=== PATIENT | female | born 1940 | race Caucasian/White ===

== ENCOUNTER 2016-11-01 12:23 | Emergency (ER) | payer MEDICARE ==
[~2016-11-01] VITALS: Ht 167.6 cm; Wt 83.9 kg
--- OUTSIDE RECORDS SUMMARY | 2016-11-01 12:31 | XMS REPORT | Continuity of Care Document ---
Author Author [facility] Organization [facility] Address Unknown Phone Unavailable Care Team Providers Care Neuro Intensivist Physician Name Role Phone ElianaAnt PCP [phone] Source Comments Some departments are not documenting in the electronic medical record. If you do not see the information that you expected, contact Release of Information in the Health Information Management department at [phone] for further assistance in locating additional records.[facility] Active Allergies and Adverse Reactions Allergen Noted Date Severity Reactions Comments Adenosine 12/05/2010 ANXIETY Albuterol 12/05/2010 ANXIETY, SEE COMMENTS tachycardia Pradaxa 12/05/2010 RASH Current Medications Prescription Sig. Disp. Refills Start End Date Status Date levothyroxine (SYNTHROID) Take 100 mcg by mouth Active 100 mcg PO tablet daily. acarbose (PRECOSE) 100 mg Take 150 mg by mouth Active PO tablet daily. glyBURIDE (DIABETA) 5 mg Take 10 mg by mouth daily Active PO tablet with breakfast. sitagliptin (JANUVIA) 100 Take 100 mg by mouth Active mg PO Tab tablet daily. flecainide (TAMBOCOR) 100 Take 100 mg by mouth Active mg PO tablet twice daily. metoprolol XL (TOPROL XL) Take 100 mg by mouth Active 100 mg PO tablet daily. lisinopril (PRINIVIL, Take 40 mg by mouth Active ZESTRIL) 40 mg PO tablet daily. MULTIVITS W-CA,FE,OTHER Take 1 Tab by mouth Active MIN (MULTIVITAMIN-CALCIUM daily. & IRON PO) Sennosides (PERDIEM Take 15 mg by mouth Active OVERNIGHT RELIEF) 15 mg daily. PO Tab ALENDRONATE SODIUM Take 1 Tab by mouth every Active (FOSAMAX PO) 7 days. atorvastatin (LIPITOR) 20 Take 20 mg by mouth Active mg PO tablet daily. zolpidem (AMBIEN) 10 mg Take 10 mg by mouth at Active PO tablet bedtime as needed. estrogens, conjugated Take 0.3 mg by mouth as Active (PREMARIN) 0.3 mg PO Needed. tablet pregabalin (LYRICA) 150 Take 150 mg by mouth Active mg PO capsule daily as needed. hydrocodone/acetaminophen Take 1 Tab by mouth every Active (+) (LORTAB) 7.5/500 mg 4 hours as needed. PO tablet mometasone (NASONEX) 50 Insert 2 Sprays into nose Active mcg/Actuation NA nasal as directed daily as spray needed. famotidine (PEPCID) 20 mg Take 20 mg by mouth twice Active PO tablet daily as needed. furosemide (LASIX) 40 mg Take 40 mg by mouth daily Active PO tablet as needed. metformin (GLUCOPHAGE) Take 1 Tab by mouth three 180 Tab 12/06/19 Active 500 mg PO tablet times daily with meals. 11 DO NOT RESUME UNTIL THE EVENING OF 12/07/10 warfarin (COUMADIN) 3 mg Take 1 Tab by mouth 12/06/19 Active PO tablet daily. Follow your 11 protocol with your INR. Active Problems Problem Noted Date Cardiac pacemaker in situ 12/05/2010 CAD (coronary artery disease) 12/05/2010 Overview: 12/05/10: Mild CAD, normal EF per cath by Dr. Anne Paroxysmal atrial fibrillation (HCC) 01/31/2009 SVT (supraventricular tachycardia) ([facility]) 10/03/2007 HTN (hypertension) Diabetes mellitus, type [address]) Personal history of PE (pulmonary embolism) Overview: A. 06/2009- PE developed after long trip, started on warfarin. Hypothyroidism Hyperlipidemia Pulmonary hypertension (HCC) Overview: A. 11/04/01- Right and left heart catherization ([facility]): EF 70%. Pulmonary capillary wedge pressure moderately elevated at 20 with a markedly large V-wave. Peakd systolic pressure of 40 and an end diastolic pressure of 22. Mild MR. Mild coronary irregularites, without significant obstruction. B. 06/30/09- Right and left heart catherization ([facility]): EF >60%. Left main had 20-25% ostial narrowing. Mild plaquing noted in the LAD, circ, and RCA. Left lower lobe PE present. C. 06/30/09- Echocardiogram ([facility]): EF 55-60%. PAP 62 mmHg. Mild to moderate MR and TR. Mild AR. D. 07/17/10- Echocardiogram ([facility]): EF 55%. Mild LAE. Mild to moderate MR. Mild AR and TR. PAP 35 mmHg. Sick sinus syndrome (HCC) Social History Tobacco Use Types Packs/Day Years Used Date Never Smoker Smokeless Tobacco: Never Used Alcohol Use Drinks/Week oz/Week Comments No Last Filed Vital Signs Vital Sign Reading Time Taken Blood Pressure 151/66 12/05/2010 5:00 PM CDT Pulse 64 12/05/2010 5:00 PM CDT Temperature 36.9 C (98.4 F) 12/05/2010 5:00 PM CDT Respiratory Rate - - Height 1.651 m (5' 5") 12/05/2010 8:58 AM CDT Weight 105.189 kg (231 lb 14.4 12/05/2010 8:58 AM CDT oz) Body Mass Index 38.59 12/05/2010 8:58 AM CDT Oxygen Saturation 100% 12/05/2010 5:00 PM CDT Plan of Care Health Maintenance Due Date Last Done Comments Physical (Comprehensive) 1947 Exam Pertussis Vaccine 1951 Tetanus Vaccine 1957 Dilated Eye Exam 1958 Foot Exam 1958 Microalbumin 1958 Breast Cancer Screening 1980 Shingles Vaccine 2000 Osteoporosis Screening 2005 Prevnar/Pneumovax (#1) 2005 Hba1c 05/26/2011 11/23/2010 Influenza Vaccine 05/03/2015 Results from Last 3 Months Not on file
[2016-11-01 12:59] LABS: BASOPHILS # (AUTO) 0.1 10^3/uL (0.0-0.1); BASOPHILS % (AUTO) 0 % (0-10); EOSINOPHILS # (AUTO) 0.2 10^3/uL (0.0-0.3); EOSINOPHILS % (AUTO) 1 % (0-10); LYMPHOCYTES # (AUTO) 2.3 X 10^3 (1.0-4.0); LYMPHOCYTES % (AUTO) 17 % (12-44); MEAN CORPUSCULAR HEMOGLOBIN 29 PG (25-34); MEAN CORPUSCULAR HGB CONC 31 G/DL (32-36); MEAN CORPUSCULAR VOLUME 92 FL (80-99); MEAN PLATELET VOLUME 9.9 FL (7.4-10.4); MONOCYTES # (AUTO) 1.3 X 10^3 (0.0-1.0); MONOCYTES % (AUTO) 10 % (0-12); NEUTROPHILS # (AUTO) 9.5 X 10^3 (1.8-7.8); NEUTROPHILS % (AUTO) 71 % (42-75); PLATELET COUNT 285 10^3/uL (130-400); RED BLOOD COUNT 3.63 10^6/uL (4.35-5.85); RED CELL DISTRIBUTION WIDTH 15.8 % (10.0-14.5); WHITE BLOOD COUNT 13.3 10^3/uL (4.3-11.0)
[2016-11-01 13:01] LABS: BILIRUBIN,URINE NEGATIVE (NEGATIVE); KETONES,URINE NEGATIVE (NEGATIVE); LEUKOCYTE ESTERASE ,URINE 3+ (NEGATIVE); NITRITE,URINE NEGATIVE (NEGATIVE); PH,URINE 5 (5-9); PROTEIN,URINE 3+ (NEGATIVE); UROBILINOGEN,URINE NORMAL (NORMAL)
--- NOTE | 2016-11-01 13:07 | ED General ---
General Chief Complaint: General Problems/Pain Stated Complaint: AMS History of Present Illness Time Seen by Provider: 12:50 Initial Comments Initial evaluation for generalized weakness and confusion reported by the patient's family. Patient was admitted at [facility] last week for possible arrhythmia, worked up by the ship construction teacher did not Have any changes other than her chronic history of atrial fib. Her reports that she has been weaker than normal and has had decreased fluids and food intake for the last 3-4 days. 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 She spent time in rehabilitation and progressed to home independent. Timing/Duration: 1-3 Hours Severity: Mild Associated Systoms: No Chest Pain, No Cough, No Fever/Chills, No Headaches, Loss of Appetite Malaise Nausea/Vomiting (intermittent for the last 2-3 days, one episode this morning)No Rash, No Seizure, No Shortness of Air, No Syncope, Weakness Allergies and Home Medications Allergies Coded Allergies: No Known Drug Allergies (Unverified , 11/01/16) Home Medications Atorvastatin Calcium 40 Mg Tablet 40 MG PO DAILY (Reported) Canagliflozin/Metformin HCl 1 Each Tablet 1 EACH PO BID (Reported) Cholecalciferol (Vitamin D3) 50,000 Unit Capsule 50,000 UNIT PO WEEK (Reported) Dulaglutide 0.75 Mg/0.5 Ml Pen.injctr 0.75 MG SQ WEEK (Reported) Estrogens, Conjugated 0.3 Mg Tablet 0.3 MG PO DAILY (Reported) Flecainide Acetate 100 Mg Tablet 100 MG PO BID (Reported) Furosemide 40 Mg Tablet 40 MG PO DAILY PRN PRN CONGESTION (Reported) Hydrocodone/Acetaminophen 1 Each Tablet 1 EACH PO (Reported) Levothyroxine Sodium 100 Mcg Tablet 100 MCG PO DAILY (Reported) Metoprolol Succinate 25 Mg Tab.er.24h 25 MG PO DAILY (Reported) Mometasone Furoate 17 Gm Naspr 17 GM NS BID (Reported) Pregabalin 150 Mg Capsule 150 MG PO BID (Reported) Vit W-Ca,Fe,FA(<1 mg) 1 Each Tablet 1 EACH PO DAILY (Reported) Ropinirole HCl 1 Mg Tablet 1 MG PO HS (Reported) Sitagliptin Phosphate 100 Mg Tablet 100 MG PO DAILY (Reported) Teriparatide 600 Mcg/2.4 Ml Syr 600 MCG SQ (Reported) Zolpidem Tartrate 10 Mg Tablet 10 MG PO HS PRN PRN INSOMNIA (Reported) Constitutional: see HPI malaise weakness EENTM: no symptoms reported see HPI Respiratory: no symptoms reported see HPI Cardiovascular: no symptoms reported see HPI Gastrointestinal: see HPI abdominal pain (generalized) Genitourinary: no symptoms reported see HPI : No Musculoskeletal: no symptoms reported see HPI Skin: no symptoms reported see HPI Psychiatric/Neurological: No Symptoms Reported See HPI Hematologic/Lymphatic: No Symptoms Reported See HPI Immunological/Allergic: no symptoms reported see HPI All Other Systems Reviewed Negative Unless Noted: Yes Past Xaebaoa-Hsyvph-Qqhqxr Hx Cardiovascular Cardiac Disorders: Atrial Fibrillation Musculoskeletal Hx Musculoskeletal Disorders: Yes Musculoskeletal Disorders: Fractures (left humerus nonunion surgery ORIF 7 weeks ago) Physical Exam Vital Signs Vital Sign - Last 12Hours 11/01/16 11/01/16 12:23 15:01 Temp 97.1 Pulse 64 Resp 16 B/P 119/58 Pulse Ox 95 O2 Delivery Room Air Capillary Refill : General Appearance: No Apparent Distress WD/WN Other (patient is hard of hearing) HEENT: PERRL/EOMI TMs Normal Other (oral mucosa and pharynx pink and dry) Neck: Full Range of Motion Normal Inspection Non Tender Respiratory: Chest Non Tender Lungs Clear Other (she has a port in the right chest wall, reports she has been difficult for IV starts, since 2012 she's had the port) Cardiovascular: Regular Rate, Rhythm Other (1+ edema bilateral lower extremities) Gastrointestinal: Normal Bowel Sounds SoftNo Distended, No Guarding, No Hepatomegaly, No Hernia, No Rebound, Tenderness (generalized with slightly more pain in the right lower quadrant) Back: Normal Inspection No Vertebral Tenderness CVA Tenderness (L) (minimal) CVA Tenderness (R) (minimal) Extremity: Normal Capillary Refill Normal Inspection Normal Range of Motion Calf Tenderness (bilaterally left greater than right, negative Homans. Pedal pulses 1+ and symmetric) Neurologic/Psychiatric: Alert Oriented x3 No Motor/Sensory Deficits Normal Mood/AffectNo Depressed Affect, No Facial Droop, No Sensory Deficit, Other ( follows all commands, answers questions appropriately. ) Skin: Normal Color Warm/Dry Lymphatic: No Adenopathy Progress/Results/Core Measures Results/Orders Lab Results Laboratory Tests Test 11/01/16 12:42 11/01/16 12:50 11/01/16 13:50 Range/Units Alanine Aminotransferase (ALT/SGPT) 8 0-55 U/L Albumin 3.4 3.2-4.5 G/DL Alkaline Phosphatase 30 L 40-136 U/L Anion Gap 17 H 5-14 MMOL/L Aspartate Amino Transf (AST/SGOT) 15 5-34 U/L BUN/Creatinine Ratio 8 Basophils # (Auto) 0.1 0.0-0.1 10^3/uL Basophils (%) (Auto) 0 0-10 % Blood Urea Nitrogen 65 H 7-18 MG/DL Calcium Level 9.0 8.5-10.1 MG/DL Carbon Dioxide Level 17 L 21-32 MMOL/L Chloride Level 91 L 98-107 MMOL/L Creatinine 8.04 H 0.60-1.30 MG/DL Eosinophils # (Auto) 0.2 0.0-0.3 10^3/uL Eosinophils (%) (Auto) 1 0-10 % Estimat Glomerular Filtration Rate 5 Glucose Level 149 H 70-105 MG/DL Hematocrit 33 L 35-52 % Hemoglobin 10.4 L 11.5-16.0 G/DL Lymphocytes # (Auto) 2.3 1.0-4.0 X 10^3 Lymphocytes (%) (Auto) 17 12-44 % Mean Corpuscular Hemoglobin 29 25-34 PG Mean Corpuscular Hemoglobin Concent 31 L 32-36 G/DL Mean Corpuscular Volume 92 80-99 FL Mean Platelet Volume 9.9 7.4-10.4 FL Monocytes # (Auto) 1.3 H 0.0-1.0 X 10^3 Monocytes (%) (Auto) 10 0-12 % Neutrophils # (Auto) 9.5 H 1.8-7.8 X 10^3 Neutrophils (%) (Auto) 71 42-75 % Platelet Count 285 130-400 10^3/uL Potassium Level 6.3 H 3.6-5.0 MMOL/L Red Blood Count 3.63 L 4.35-5.85 10^6/uL Red Cell Distribution Width 15.8 H 10.0-14.5 % Sodium Level 125 *L 135-145 MMOL/L Total Bilirubin 0.3 0.1-1.0 MG/DL Total Protein 6.3 L 6.4-8.2 G/DL White Blood Count 13.3 H 4.3-11.0 10^3/uL Urine Bacteria LARGE H /HPF Urine Bilirubin NEGATIVE NEGATIVE Urine Casts NONE /LPF Urine Clarity VERY CLOUDY H Urine Color YELLOW Urine Crystals NONE /LPF Urine Culture Indicated YES Urine Glucose (UA) NEGATIVE NEGATIVE Urine Ketones NEGATIVE NEGATIVE Urine Leukocyte Esterase 3+ H NEGATIVE Urine Mucus NEGATIVE /LPF Urine Nitrite NEGATIVE NEGATIVE Urine Protein 3+ H NEGATIVE Urine RBC 50-100 H /HPF Urine RBC (Auto) 5+ H NEGATIVE Urine Specific Hollis 1.015 L 1.016-1.022 Urine Urobilinogen NORMAL NORMAL MG/DL Urine WBC TNTC H /HPF Urine Yeast LARGE H /HPF Urine pH 5 5-9 Lactic Acid Level 3.7 *H 0.5-2.0 MMOL/L My Orders Orders-TEZARELI Cbc With Automated Diff (11/01/16 12:50) Comprehensive Metabolic Panel (11/01/16 12:50) Lactic Acid Analyzer (11/01/16 12:50) Blood Culture (11/01/16 12:50) Ua Culture If Indicated (11/01/16 12:50) O2 (11/01/16 12:50) Saline Lock/Iv-Start (11/01/16 12:50) Saline Lock/Iv-Start (11/01/16 12:50) Vital Signs Adult Sepsis Patie Q1HR (11/01/16 12:50) Urine Culture (11/01/16 12:50) Saline Lock/Iv-Start (11/01/16 13:23) Ns Iv 1000 Ml (Sodium Chloride 0.9%) (11/01/16 13:23) Ceftriaxone Injection (Rocephin Injectio (11/01/16 13:45) Doshi Cath Insertion (11/01/16 14:15) Doshi Cath (11/01/16 14:15) Sodium Bicarbonate 8.4% Syr (Sodium Bica (11/01/16 14:15) Calcium Chloride 10% Injection (Calcium (11/01/16 14:15) D50w (Emergency) Syringe (Dextrose 50% 5 (11/01/16 14:15) Insulin (Regular) Human (Humulin R (Per (11/01/16 14:15) Saline Lock/Iv-Start (11/01/16 14:15) Ns Iv 1000 Ml (Sodium Chloride 0.9%) (11/01/16 14:15) Sodium Polystyrene Sulfonate (Kayexalate (11/01/16 14:30) Albuterol Pre-Mix Nebs (Rt) (Proventil P (11/01/16 21:00) Svn Sm Volume Nebulizer Rt-Rfs (11/01/16 14:24) Albuterol/Ipra Inhalation Soln (Duoneb I (11/01/16 14:43) Ondansetron Injection (Zofran Injectio (11/01/16 14:48) Chest 1 View, Ap/Pa Only (11/01/16 15:16) Medications Given in ED Current Medications Medications Dose Ordered Sig/Neeraj Route Start Time Stop Time Status Last Admin Dose Admin Albuterol/ Ipratropium 3 ml STK-MED ONCE .ROUTE 11/01/16 14:43 11/01/16 14:45 DC 11/01/16 15:01 3 ML Calcium Chloride 1 gm ONCE ONCE INJ 11/01/16 14:15 11/01/16 14:26 DC 11/01/16 14:45 1 GM Ceftriaxone Sodium/Sodium Chloride 50 ml @ 100 mls/hr ONCE ONCE IV 11/01/16 13:45 11/01/16 14:14 DC 11/01/16 13:55 100 MLS/HR Dextrose 25 ml ONCE ONCE IV 11/01/16 14:15 11/01/16 14:26 DC 11/01/16 14:54 25 ML Insulin Human Regular 10 unit 10 unit ONCE ONCE IV 11/01/16 14:15 11/01/16 14:26 DC 11/01/16 14:55 10 UNIT Ondansetron HCl 4 mg STK-MED ONCE .ROUTE 11/01/16 14:48 11/01/16 14:51 DC 11/01/16 14:54 4 MG Sodium Polystyrene Sulfonate 60 gm ONCE ONCE PO 11/01/16 14:30 11/01/16 14:35 DC 11/01/16 15:01 60 GM Sodium Bicarbonate 50 meq ONCE ONCE IV 11/01/16 14:15 11/01/16 14:26 DC 11/01/16 14:57 50 MEQ Sodium Chloride 1,000 ml @ 0 mls/hr Q0M ONCE IV 11/01/16 14:15 11/01/16 14:26 DC 11/01/16 15:39 500 MLS/HR Sodium Chloride 1,000 ml @ 175 mls/hr Q5H43M ONCE IV 11/01/16 13:23 11/01/16 17:42 DC 11/01/16 13:55 175 MLS/HR Vital Signs/I&O Vital Sign - Last 12Hours 11/01/16 11/01/16 11/01/16 11/01/16 12:23 15:01 16:00 16:03 Temp 97.1 97.0 97.0 Pulse 64 65 65 Resp 16 20 20 B/P 119/58 98/45 Pulse Ox 95 96 O2 Delivery Room Air Progress Note : Time: 12:50 Progress Note Initial evaluation completed, recommended obtaining labs. Will reevaluate after these are completed patient denied any request at this time. 1255 WBC 13.3; H & H 10.4 and 33. Sodium 125, potassium 6.3, chloride 91, carbon dioxide 17, BUN 65, creatinine 8.04, glucose 149 alkaline phosphatase 30 , and protein 6.3. 1 L normal saline started at 250 ml per hour. Discussed with Dr. Burton, recommended transport to [facility]. Results discussed with patient and her family. Telemetry continues to show atrial fib in the 60s to 70s. 1315 Urine: very cloudy; pH 5, Sp Hollis 1.015; Protein 3+; glucose negative, ketones negative, nitrates negative, leukocyte esterase 3+, RBC 5+, WBC too numerous to count, large bacteria and large yeast. Rocephin 1 g IV 1350 Lactic Acid 3.7 1400 due to patient's creatinine of 8.04 recommendation was to transfer her to [facility]. Spoke with Dr. Meneses from nephrology the following orders were received: Kayexalate 60 g orally, start a second liter of normal saline wide open, Doshi catheter, 1 amp of calcium chloride, one amp of sodium bicarbonate, 1 amp of D5 and 10 units of regular insulin IV, followed by an albuterol treatment. 1430 spoke with patient's family they agree with the recommendation for transfer to [facility]. [address] Fairchild from [facility] hospitalist, agreed to accept the patient in transfer. No additional orders received. 1530 all orders have been completed, patient is sitting up in bed talking with her daughter and . 1600 report given to nurse at [facility], cardiac medical unit 2. 1630 patient left for transfer via [facility] for admission to [facility]. ECG Initial ECG Impression Date: Nov 01, 2016 Initial ECG Impression Time: 13:13 Initial ECG Rate: 61 Initial ECG Rhythm: A Fib/Flutter Initial ECG Intervals: QRS (152) Initial ECG Intervals TX 238 QT 496 [place]: QRS -28; T 40 Initial ECG Impression: Nonspecific Changes Initial ECG Comparisson: No Previous ECG Available Comment Reviewed with Dr. Trevino, agreed with interpretation. Diagnostic Imaging Diagonstic Imaging: Xray Plain Films/CT/US/NM/MRI: chest Comments NAME: PEDRO HERNANDEZ [facility] REC#: [id number] PT STATUS: REG ER : 1940 PHYSICIAN: ARELI REAGAN ADMIT DATE: 11/01/16/ER Draft Date of Exam:11/01/16 CHEST 1 VIEW, AP/PA ONLY EXAMINATION: Portable upright radiograph of the chest. INDICATION: Altered mental status. FINDINGS: There is a pacemaker with two cardiac leads seen. There is an infusion port with the tip at the cavoatrial junction. The cardiac size is moderately enlarged. There is pulmonary vascular congestion. No significant focal consolidation. No effusion or pneumothorax. The mediastinum and marcelo appear unremarkable. IMPRESSION: Cardiomegaly with pulmonary vascular congestion. Dictated on workstation # [id number] Dict: 11/01/16 1541 Trans: 11/01/16 1547 [facility] [phone] Interpreted by: FLO BRICENO MD Electronically signed by: Reviewed: Reviewed by Me, Reviewed/Discussed Departure Impression Impression: Primary Impression: Acute kidney failure Qualified Code: N17.9 - Acute kidney failure, unspecified Additional Impression: Urinary tract infection Qualified Code: N10 - Acute pyelonephritis Disposition: [facility] HOSP Condition: Stable Departure-Patient Inst. Decision time for Depature: 14:00 Referrals: NO,LOCAL PHYSICIAN (PCP/Family) Primary Care Physician ARELI REAGAN Nov 01, 2016 13:07
[2016-11-01 13:13] LABS: WBC,URINE TNTC /HPF; YEAST,URINE LARGE /HPF
[2016-11-01 13:16] LABS: ALBUMIN 3.4 G/DL (3.2-4.5); BILIRUBIN,TOTAL 0.3 MG/DL (0.1-1.0); CREATININE SERUM 8.04 MG/DL (0.60-1.30); TOTAL PROTEIN 6.3 G/DL (6.4-8.2)
[2016-11-01] MEDS ORDERED: NS IV 1000 ML 1,000 ML IV ONE ×2 (13:23→14:15)
[2016-11-01 13:25] LABS: POTASSIUM 6.3 MMOL/L (3.6-5.0)
[2016-11-01] MEDS ORDERED: cefTRIAXone INJECTION 1,000 MG in NS (IVPB) 50 ML IV ONE (13:45)
[2016-11-01] MEDS ORDERED: inSUlin (REGULAR) HUMAN 1 UNIT/0.01 ML (CHARGE PER UNIT) IV ONE (14:15)
[2016-11-01] MEDS ORDERED: CALCIUM CHLORIDE 1 GM/10 ML (IMS) SYR INJ ONE (14:15)
[2016-11-01] MEDS ORDERED: SODIUM BICARB 8.4% 50 MEQ/50 ML (ABBOTT) SYR IV ONE (14:15)
[2016-11-01] MEDS ORDERED: DEXTROSE 50% 50 ML (IMS) SYR IV ONE (14:15)
[2016-11-01] MEDS ORDERED: SOD POLYSTERENE 15 GM/60 ML (KAYEXALATE) UNIT DOSE PO ONE (14:30)
[2016-11-01] MEDS ORDERED: RT-ALBUTEROL/IPRATROPIUM 3 ML (DUONEB) VIAL ONE (14:43)
[2016-11-01] MEDS ORDERED: ONDANSETRON 4 MG/2 ML (SDV) Z0FRAN ONE (14:48)
--- NOTE | 2016-11-01 15:47 | Diagnostic Imaging Report ---
EXAMINATION: Portable upright radiograph of the chest. INDICATION: Altered mental status. FINDINGS: There is a pacemaker with two cardiac leads seen. There is an infusion port with the tip at the cavoatrial junction. The cardiac size is moderately enlarged. There is pulmonary vascular congestion. No significant focal consolidation. No effusion or pneumothorax. The mediastinum and marcelo appear unremarkable. IMPRESSION: Cardiomegaly with pulmonary vascular congestion. Dictated by: Dictated on workstation # [id number]
[2016-11-01 16:03] VITALS: BP 98/45
[2016-11-01] MEDS ORDERED: DULA0.75 SQ (17:38)
[2016-11-01] MEDS ORDERED: PREG150C PO (17:38)
[2016-11-01] MEDS ORDERED: HYDR-3816 PO (17:38)
[2016-11-01] MEDS ORDERED: SITA100T12 PO (17:38)
[2016-11-01] MEDS ORDERED: FURO-124 PO (17:38)
[2016-11-01] MEDS ORDERED: CANA1TAB4 PO (17:38)
[2016-11-01] MEDS ORDERED: ZOLP10TA PO (17:38)
[2016-11-01] MEDS ORDERED: CHOL500049 PO (17:38)
[2016-11-01] MEDS ORDERED: ROPI1TAB2 PO (17:38)
[2016-11-01] MEDS ORDERED: METO-270 PO (17:38)
[2016-11-01] MEDS ORDERED: LEVO100T PO (17:38)
[2016-11-01] MEDS ORDERED: TERI202.4P SQ (17:38)
[2016-11-01] MEDS ORDERED: FLEC100T PO (17:38)
[2016-11-01] MEDS ORDERED: MMT17NA NS (17:38)
[2016-11-01] MEDS ORDERED: PREN-8 PO (17:38)
[2016-11-01] MEDS ORDERED: ATOR40TA PO (17:38)
[2016-11-01] MEDS ORDERED: ESTR0.3T PO (17:38)
[2016-11-01] MEDS ORDERED: RT-ALBUTEROL SULF 2.5 MG/3 ML PRE-MIX VIAL INH SCH (21:00)
== END 2016-11-01 16:03 | disposition short-term general hospital (02) ==
LOC: EDUNIT# 12:23 → ER 12:27
DX: N17.9 Acute kidney failure, unspecified (principal); N39.0 Urinary tract infection, site not specified; I51.7 Cardiomegaly; E11.9 Type 2 diabetes mellitus without complications; I48.2 Chronic atrial fibrillation; Z79.84 Long term (current) use of oral hypoglycemic drugs; Z79.899 Other long term (current) drug therapy; Z98.890 Other specified postprocedural states
CPT/HCPCS: 36415; 51702; 71010; 80053; 81000; 83605; 85025; 87040; 87088; 94640; 96361; 96374; 96375

== ENCOUNTER → 2017-12-27 | Outpatient (CLI) | payer MEDICARE ==
[~2017-12-27] MED LIST: ATOR40TA PO; CANA1TAB4 PO; CHOL500049 PO; DULA0.75 SQ; ESTR0.3T PO; FLEC100T PO; FURO-124 PO; HYDR-34 PO; LEVO100T PO; METO-387 PO; MMT17NA NS; PREG150C PO; PREN-8 PO; ROPI1TAB2 PO; SITA100T12 PO; TERI202.4P SQ; ZOLP10TA PO
[2017-12-27 17:29] LABS: BILIRUBIN,URINE NEGATIVE (NEGATIVE); CLARITY,URINE CLEAR; COLOR,URINE YELLOW; GLUCOSE, URINE (UA) 3+ (NEGATIVE); KETONES,URINE NEGATIVE (NEGATIVE); LEUKOCYTE ESTERASE ,URINE 1+ (NEGATIVE); NITRITE,URINE NEGATIVE (NEGATIVE); PH,URINE 6 (5-9); PROTEIN,URINE NEGATIVE (NEGATIVE); UROBILINOGEN,URINE NORMAL (NORMAL)
[2017-12-27 17:38] LABS: BACTERIA,URINE NEGATIVE /HPF; RBC,URINE RARE /HPF
== END ==
LOC: HH 17:24
PROVIDERS: ATTEND Obstetrics & Gynecology
DX: R30.0 Dysuria (principal); R35.0 Frequency of micturition
CPT/HCPCS: 81000; 87088

== ENCOUNTER 2020-02-17 16:11 | Observation (INO) | payer MEDICARE ==
[~2020-02-17] VITALS: Ht 167.7 cm; Wt 104.5 kg
[~2020-02-17 16:11] MED LIST changes: -METO-387 PO; +MTP25TSR PO; +ROPI1TAB PO; -ROPI1TAB2 PO
--- NOTE | 2020-02-17 16:25 | ED General ---
General Chief Complaint: General Problems/Pain Stated Complaint: URINARY ISSUES Source of Information: Patient Exam Limitations: No Limitations History of Present Illness Date Seen by Provider: Feb 17, 2020 Time Seen by Provider: 16:21 Initial Comments To ER with c/o suspected sepsis. EMS was called by home health nurse with reports of the patient generall not feeling well, headache. No fevers no cough no shortness of breath. Symptoms began this morning. History of UTI/Sepsis which started this way. history of renal failure and was temporarily on dialysis in 2017 but is NOT currently on dialysis. She is full code status and would be interested in doing dialysis again if it is necessary. Timing/Duration: 12-24 Hours Severity: Moderate Associated Systoms: Headaches, Weakness Allergies and Home Medications Allergies Coded Allergies: No Known Drug Allergies (Unverified , 11/01/16) Home Medications Atorvastatin Calcium 40 Mg Tablet, 40 MG PO DAILY, (Reported) Canagliflozin/Metformin HCl 1 Each Tablet, 1 EACH PO BID, (Reported) Cholecalciferol (Vitamin D3) 50,000 Unit Capsule, 50,000 UNIT PO WEEK, (Reported) Dulaglutide 0.75 Mg/0.5 Ml Pen.injctr, 0.75 MG SQ WEEK, (Reported) Estrogens, Conjugated 0.3 Mg Tablet, 0.3 MG PO DAILY, (Reported) Flecainide Acetate 100 Mg Tablet, 100 MG PO BID, (Reported) Furosemide 40 Mg Tablet, 40 MG PO DAILY PRN for CONGESTION, (Reported) Levothyroxine Sodium 100 Mcg Tablet, 100 MCG PO DAILY, (Reported) Metoprolol Succinate 25 Mg Tab.er.24h, 25 MG PO DAILY, (Reported) Mometasone Furoate 17 Gm Naspr, 17 GM NS BID, (Reported) Pregabalin 150 Mg Capsule, 150 MG PO BID, (Reported) Vit W-Ca,Fe,FA(<1 mg) 1 Each Tablet, 1 EACH PO DAILY, (Reported) Ropinirole HCl 1 Mg Tablet, 1 MG PO HS, (Reported) Sitagliptin Phosphate 100 Mg Tablet, 100 MG PO DAILY, (Reported) Zolpidem Tartrate 10 Mg Tablet, 10 MG PO HS PRN for INSOMNIA, (Reported) Patient Home Medication List Home Medication List Reviewed: Yes Review of Systems Review of Systems Constitutional: see HPI; No chills, No fever; weakness EENTM: see HPI Respiratory: see HPI; No cough, No short of breath Cardiovascular: no symptoms reported; No chest pain Genitourinary: no symptoms reported Musculoskeletal: no symptoms reported Skin: no symptoms reported Psychiatric/Neurological: No Symptoms Reported Hematologic/Lymphatic: No Symptoms Reported Past Hnetdyi-Rxjqcx-Wgapdt Hx Patient Social History Alcohol Use: Denies Use Recreational Drug Use: No Smoking Status: Never a Smoker Recent Hopitalizations: Yes (ferreira 1 wk ago for palpitations) Immunizations Up To Date Date of Influenza Vaccine: Aug 06, 2016 Seasonal Allergies Seasonal Allergies: No Past Medical History Orthopedic, Tonsillectomy Atrial Fibrillation, High Cholesterol, Hypertension Fractures Hypothyroidsim, Diabetes, Non-Insulin dep Physical Exam Vital Signs Vital Signs - First Documented 02/17/20 16:11 Temp 36.7 Pulse 92 Resp 18 B/P (MAP) 105/60 (75) Pulse Ox 97 O2 Delivery Room Air Capillary Refill : Height, Weight, BMI Height: 5'6" Weight: 185lbs. oz. 83.790291hb; BMI Method:Estimated General Appearance: No Apparent Distress, WD/WN, Chronically ill, Obese Eyes: Bilateral Eye Normal Inspection, Bilateral Eye PERRL, Bilateral Eye EOMI Neck: Full Range of Motion, Normal Inspection Respiratory: No Accessory Muscle Use, No Respiratory Distress (HR 77, BP 105/63, 94%. No distress, alert and oriented, recalls all events. Dry mucous membranes. ) Cardiovascular: Regular Rate, Rhythm Gastrointestinal: Non Tender, Soft Extremity: Normal Capillary Refill Neurologic/Psychiatric: Alert, Oriented x3 Skin: Normal Color Focused Exam Lactate Level 02/17/20 16:23: Lactic Acid Level 1.35 Lactic Acid Level Laboratory Tests Test 02/17/20 16:23 Lactic Acid Level 1.35 MMOL/L (0.50-2.00) Progress/Results/Core Measures Suspected Sepsis SIRS Temperature: Pulse: Respiratory Rate: Laboratory Tests 02/17/20 16:23: White Blood Count 12.5H Blood Pressure / Mean: 02/17/20 16:23: Lactic Acid Level 1.35 Laboratory Tests 02/17/20 16:23: Creatinine 1.13, Platelet Count 205, Total Bilirubin 0.8 Results/Orders Lab Results Laboratory Tests Test 02/17/20 16:23 02/17/20 16:32 Range/Units White Blood Count 12.5 H 4.3-11.0 10^3/uL Red Blood Count 3.94 L 4.35-5.85 10^6/uL Hemoglobin 12.0 11.5-16.0 G/DL Hematocrit 37 35-52 % Mean Corpuscular Volume 93 80-99 FL Mean Corpuscular Hemoglobin 31 25-34 PG Mean Corpuscular Hemoglobin Concent 33 32-36 G/DL Red Cell Distribution Width 18.4 H 10.0-14.5 % Platelet Count 205 130-400 10^3/uL Mean Platelet Volume 10.9 H 7.4-10.4 FL Neutrophils (%) (Auto) 80 H 42-75 % Lymphocytes (%) (Auto) 12 12-44 % Monocytes (%) (Auto) 7 0-12 % Eosinophils (%) (Auto) 0 0-10 % Basophils (%) (Auto) 0 0-10 % Neutrophils # (Auto) 10.0 H 1.8-7.8 X 10^3 Lymphocytes # (Auto) 1.5 1.0-4.0 X 10^3 Monocytes # (Auto) 0.9 0.0-1.0 X 10^3 Eosinophils # (Auto) 0.1 0.0-0.3 10^3/uL Basophils # (Auto) 0.0 0.0-0.1 10^3/uL Sodium Level 135 135-145 MMOL/L Potassium Level 5.2 H 3.6-5.0 MMOL/L Chloride Level 100 98-107 MMOL/L Carbon Dioxide Level 23 21-32 MMOL/L Anion Gap 12 5-14 MMOL/L Blood Urea Nitrogen 33 H 7-18 MG/DL Creatinine 1.13 0.60-1.30 MG/DL Estimat Glomerular Filtration Rate 46 BUN/Creatinine Ratio 29 Glucose Level 161 H 70-105 MG/DL Lactic Acid Level 1.35 0.50-2.00 MMOL/L Calcium Level 9.0 8.5-10.1 MG/DL Corrected Calcium 9.4 8.5-10.1 MG/DL Total Bilirubin 0.8 0.1-1.0 MG/DL Aspartate Amino Transf (AST/SGOT) 38 H 5-34 U/L Alanine Aminotransferase (ALT/SGPT) 21 0-55 U/L Alkaline Phosphatase 46 40-136 U/L Total Protein 7.0 6.4-8.2 GM/DL Albumin 3.5 3.2-4.5 GM/DL Urine Color YELLOW Urine Clarity TURBID Urine pH 6.0 5-9 Urine Specific [place] >=1.030 1.016-1.022 Urine Protein NEGATIVE NEGATIVE Urine Glucose (UA) NEGATIVE NEGATIVE Urine Ketones NEGATIVE NEGATIVE Urine Nitrite POSITIVE H NEGATIVE Urine Bilirubin NEGATIVE NEGATIVE Urine Urobilinogen 0.2 < = 1.0 MG/DL Urine Leukocyte Esterase 2+ H NEGATIVE Urine RBC (Auto) 1+ H NEGATIVE Urine RBC NONE /HPF Urine WBC TNTC H /HPF Urine Crystals NONE /LPF Urine Bacteria LARGE H /HPF Urine Casts NONE /LPF Urine Mucus SMALL H /LPF Urine Culture Indicated CULTURE PENDING My Orders Orders - JESUS LAUREANO APRN Cbc With Automated Diff (02/17/20 16:19) Comprehensive Metabolic Panel (02/17/20 16:19) Blood Culture (02/17/20 16:19) Sputum Culture (02/17/20 16:19) Urinalysis (02/17/20 16:19) Urine Culture (02/17/20 16:19) Protime With Inr (02/17/20 16:19) Partial Thromboplastin Time (02/17/20 16:19) Chest 1 View, Ap/Pa Only (02/17/20 16:19) Ed Iv/Invasive Line Start (02/17/20 16:19) Ed Iv/Invasive Line Start (02/17/20 16:19) Vital Signs Adult Sepsis Patie Q15M (02/17/20 16:19) O2 (02/17/20 16:19) Remove Rings In Anticipation O (02/17/20 16:19) Lactic Acid Analyzer (02/17/20 16:19) Lactated Ringers (Lr 1000 Ml Iv Solution (02/17/20 16:30) Ceftriaxone For Iv Use (Rocephin For I (02/17/20 17:00) Vital Signs/I&O 02/17/20 16:11 Temp 36.7 Pulse 92 Resp 18 B/P (MAP) 105/60 (75) Pulse Ox 97 O2 Delivery Room Air Capillary Refill : Departure Communication (Admissions) Time/Spoke to Admitting Phy: 17:[address] Palafox who graciously accepts patient for admission Impression Primary Impression: General weakness Additional Impression: Urinary tract infection Disposition: 09 ADMITTED INPATIENT Condition: Stable Admissions Decision to Admit Reason: Admit from ER (General) Decision to Admit/Date: Feb 17, 2020 Time/Decision to Admit Time: 17:05 Departure-Patient Inst. Referrals: NO,LOCAL PHYSICIAN (PCP/Family) Primary Care Physician JESUS LAUREANO APRN Feb 17, 2020 16:24
[2020-02-17] MEDS ORDERED: LACTATED RINGERS 1,000 ML IV SCH (16:30)
[2020-02-17] MEDS ORDERED: ALPR0.5T7 PO (16:33)
[2020-02-17] MEDS ORDERED: MELO15TA39 PO (16:33)
[2020-02-17 16:34] LABS: BASOPHILS % (AUTO) 0 % (0-10); EOSINOPHILS # (AUTO) 0.1 10^3/uL (0.0-0.3); EOSINOPHILS % (AUTO) 0 % (0-10); HEMATOCRIT 37 % (35-52); LYMPHOCYTES # (AUTO) 1.5 X 10^3 (1.0-4.0); LYMPHOCYTES % (AUTO) 12 % (12-44); MEAN CORPUSCULAR HEMOGLOBIN 31 PG (25-34); MEAN CORPUSCULAR HGB CONC 33 G/DL (32-36); MEAN CORPUSCULAR VOLUME 93 FL (80-99); MEAN PLATELET VOLUME 10.9 FL (7.4-10.4); MONOCYTES # (AUTO) 0.9 X 10^3 (0.0-1.0); MONOCYTES % (AUTO) 7 % (0-12); NEUTROPHILS % (AUTO) 80 % (42-75); PLATELET COUNT 205 10^3/uL (130-400); RED CELL DISTRIBUTION WIDTH 18.4 % (10.0-14.5); WHITE BLOOD COUNT 12.5 10^3/uL (4.3-11.0)
[2020-02-17 16:42] LABS: BILIRUBIN,URINE NEGATIVE (NEGATIVE); CLARITY,URINE TURBID; COLOR,URINE YELLOW; GLUCOSE, URINE (UA) NEGATIVE (NEGATIVE); KETONES,URINE NEGATIVE (NEGATIVE); LEUKOCYTE ESTERASE ,URINE 2+ (NEGATIVE); NITRITE,URINE POSITIVE (NEGATIVE); PROTEIN,URINE NEGATIVE (NEGATIVE)
[2020-02-17 16:44] LABS: ALBUMIN 3.5 GM/DL (3.2-4.5); POTASSIUM 5.2 MMOL/L (3.6-5.0)
[2020-02-17 16:49] LABS: BILIRUBIN,TOTAL 0.8 MG/DL (0.1-1.0)
[2020-02-17 16:50] LABS: CREATININE SERUM 1.13 MG/DL (0.60-1.30)
[2020-02-17 16:51] LABS: BACTERIA,URINE LARGE /HPF; WBC,URINE TNTC /HPF
[2020-02-17] MEDS ORDERED: cefTRIAXone FOR IV USE 1,000 MG in WATER (STERILE) FOR INJECTION 10 ML IV ONE (17:00)
--- NOTE | 2020-02-17 17:07 | NUR ---
MED LIST TO CHART.
--- NOTE | 2020-02-17 17:12 | Diagnostic Imaging Report ---
HISTORY: Low back pain. Loss of consciousness. History of sepsis. COMPARISON: 11/01/2016. TECHNIQUE: Frontal view of the chest. FINDINGS: There is mild cardiomegaly with central vascular congestion. No focal airspace consolidation is seen. There is no significant pleural effusion or pneumothorax. The left-sided pacemaker appears stable. The right-sided Port-A-Cath tip projects over the cavoatrial junction. IMPRESSION: 1. Mild cardiomegaly with mild central vascular congestion. Dictated by: Dictated on workstation # [id number]
[2020-02-17 17:20] LABS: INR 1.1 (0.8-1.4); PROTHROMBIN TIME PATIENT 14.3 SEC (12.2-14.7)
--- NOTE | 2020-02-17 18:02 | NUR ---
REPORT TAKEN AT THIS TIME FROM NICOLE FELIZ FROM ER. THIS RN WILL ASSUME CARE OF THIS PATIENT WHEN SHE ARRIVES TO THIS FLOOR.
--- NOTE | 2020-02-17 18:40 | NUR ---
PEDRO HERNANDEZ admitted to room 413-1, with an admitting diagnosis of UTI AND GENERALIZED WEAKNESS, on 02/17/20 from ED via [facility], accompanied by ED STAFF. PEDRO HERNANDEZ introduced to surroundings, call light, bed controls, phone, TV, temperature control, lights, meal times, smoking policy, visitor policy, side rail policy, bathrooms and showers. Patient Rights given to patient in the handbook. PEDRO HERNANDEZ verbalizes understanding that [facility] is not responsible for the loss or damage to any personal effects or valuables that are kept in the patients posession during their hospitalization. PEDRO HERNANDEZ verbalizes understanding of Interdisciplinary Patient Education. Patient and/or family were informed about the Rapid Response Team and its purpose.
[2020-02-17 18:43] VITALS: BP 105/60
[2020-02-17 18:48] VITALS: BP 105/60
[2020-02-17] MEDS ORDERED: ONDANSETRON 4 MG/2 ML (SDV) Z0FRAN IVP PRN (19:00)
[2020-02-17] MEDS ORDERED: inSUlin ASPART (NovoLOG) 1 UNIT/0.01 ML (CHARGE PER UNIT) SC SCH (19:00)
[2020-02-17] MEDS ORDERED: ENOXAPARIN 40 MG/0.4 ML (LOVENOX) SYR SQ SCH (19:00)
[2020-02-17] MEDS: LACTATED RINGERS 1,000 ML IV SCH (19:56)
[2020-02-17 20:00] VITALS: BP 149/61
[2020-02-17] MEDS: ACETAMINOPHEN 500 MG TAB (TYLENOL) PO PRN (21:47)
[2020-02-17] MEDS ORDERED: NON-FORMULARY MEDICATION 1 EA EA (Zolpidem Tartrate (Ambien) 10 MG) PO PRN (23:30)
[2020-02-17] MEDS: ZOLPIDEM 5 MG (AMBIEN) TAB PO PRN (23:35)
[2020-02-17 23:59] VITALS: BP 104/71
[2020-02-18 03:58] VITALS: BP 91/65
[2020-02-18] MEDS: inSUlin ASPART (NovoLOG) 1 UNIT/0.01 ML (CHARGE PER UNIT) SC SCH ×4 (05:31→20:39)
[2020-02-18 05:45] LABS: BASOPHILS # (AUTO) 0.1 10^3/uL (0.0-0.1); BASOPHILS % (AUTO) 1 % (0-10); EOSINOPHILS # (AUTO) 0.1 10^3/uL (0.0-0.3); EOSINOPHILS % (AUTO) 1 % (0-10); HEMATOCRIT 36 % (35-52); LYMPHOCYTES # (AUTO) 3.3 X 10^3 (1.0-4.0); LYMPHOCYTES % (AUTO) 25 % (12-44); MEAN CORPUSCULAR HEMOGLOBIN 31 PG (25-34); MEAN CORPUSCULAR HGB CONC 33 G/DL (32-36); MEAN CORPUSCULAR VOLUME 93 FL (80-99); MEAN PLATELET VOLUME 10.9 FL (7.4-10.4); MONOCYTES % (AUTO) 8 % (0-12); NEUTROPHILS # (AUTO) 8.4 X 10^3 (1.8-7.8); NEUTROPHILS % (AUTO) 65 % (42-75); PLATELET COUNT 197 10^3/uL (130-400); RED CELL DISTRIBUTION WIDTH 18.4 % (10.0-14.5); WHITE BLOOD COUNT 12.9 10^3/uL (4.3-11.0)
[2020-02-18] MEDS: LACTATED RINGERS 1,000 ML IV SCH ×3 (05:54→16:59)
[2020-02-18 06:08] LABS: ALBUMIN 3.2 GM/DL (3.2-4.5); CALCIUM 9.1 MG/DL (8.5-10.1); CREATININE SERUM 1.24 MG/DL (0.60-1.30); POTASSIUM 4.7 MMOL/L (3.6-5.0); TOTAL PROTEIN 6.5 GM/DL (6.4-8.2)
[2020-02-18 08:00] VITALS: BP 106/73
--- NOTE | 2020-02-18 09:15 | NUR ---
ICU REPORTS CHANGE IN RHYTHM. STRIPS TO DR. HINDS. STAT EKG DONE. PT ASYMPTOMATIC.
--- NOTE | 2020-02-18 09:34 | NUR ---
Inpatient rehab evaluation Received order to evaluate patient for admission to the inpatient rehab unit. PT and OT evaluations ordered and pending. Will continue to follow. Thank you for the referral.
--- NOTE | 2020-02-18 09:51 | Occupational Therapy Eval ---
OT Evaluation-General/PLF Medical Diagnosis Admission Date Feb 17, 2020 at 17:03 Medical Diagnosis: UTI/ debility Onset Date: Feb 17, 2020 Therapy Diagnosis Therapy Diagnosis: Decreased ADL status Height/Weight Height (Feet): 5 Height (Inches): 6 Weight (Pounds): 185 Precautions Precautions/Isolations: Fall Prevention, Standard Precautions Referral Physician: Vivienne Referral Reason: Activity Tolerance, Self Care, Evaluation/Treatment, Strengthening/ROM Medical History Additional Medical History UTI chronic, renal failure (no longer on dialysis), a fib, high cholesterol, HTN, fx, hypothyroidism, IDDM Current History Admits from home to ER with UTI/ generalized weakness. Reviewed History: Yes Social History Home: Single Level Current Living Status: Spouse Entry Into Home: Level Entry ADL-Prior Level of Function SCALE: Activities may be completed with or without assistive devices. 0-Xuwcijskkd-rbtwzrm completes the activity by him/herself with no assistance from a helper. 5-Set-up or Clean-up Assistance-helper sets up or cleans up; patient completes activity. [place] assists only prior to or following the activity. 4-Supervision or Touching Assistance-helper provides verbal cues and/or touching/steadying and/or contact guard assistance as patient completes activity. Assistance may be provided throughout the activity or intermittently. 3-Partial/Moderate Assistance-helper does LESS THAN HALF the effort. Green li fts, holds or supports trunk or limbs, but provides less than half the effort. 2-Substantial/Maximal Assistance-helper does MORE THAN HALF the effort. Green lifts or holds trunk or limbs and provides more than half the effort. 0-Mtvroopdj-phltjb does ALL the effort. Patient does none of the effort to complete the activity. Or, the assistance of 2 or more helpers is required for the patient to complete the activity. If activity was not attempted, code reason: 7-Patient Refused. 9-Not Applicable-not attempted and the patient did not perform the activity before the current illness, exacerbation or injury. 10-Not Attempted due to Environmental Limitations-(lack of equipment, weather restraints, etc.). 88-Not Attempted due to Medical Conditions or Safety Concerns. ADL PLOF Comments Pt has HH OT/ PT 3x per week; assist with all ADLs per pt. Pt has caregiver assi st for all IADLs (cooking, cleaning, laundry, shopping), and assist with ADLs 7 days a week 10a-6p. Pt states is "more debilitated than me," and states she does not provide any assist for him. Self Care: Needed Some Help Functional Cognition: Independent DME/Equipment: Bath Chair, Grab Bars, Shower DME/Equipment Comments 2WW, grab bars, sc, walk in shower Occupation: retired. Drive Self: No OT Current Status Subjective Pt seen in recliner chair, states she just got to chair. Pt states no pain, though very fatigued. Pt oriented/ groggy. Pt agrees to OT eval/ treat. Mental Status/Objective Patient Orientation: Person, Place, Situation Attachments: Doshi Catheter, IV, Telemetry Current Glasses/Contacts: Yes Hand Dominance: Right Upper Extremity ROM WFL BUE (shoulder flexion bilaterally to ~90*) Upper Extremity Coordination WFL BUE Upper Extremity Sensation WFL BUE Upper Extremity Strength Decreased BUE (3+/5) Edema: slight/ nonpitting BLE ADL-Treatment Eating (QC): 6 Oral Hygiene (QC): 7 Lower Body Dressing (QC): 1 On/Off Footwear (QC): 1 Other Treatments Pt agrees to OT. Pt provides hx and states PLOF: assist required for all I/ADLs. Pt states was in SNF within past 3 mo and now has HH OT/ PT. Based on PLOF pt required mod-max A with all ADLs. Pt debilitated, decreased UE strength. Pt unable to reach feet for sock doffing in sit, attempts sit to stand with cues for hand positioning. Pt unable to stand with max A. Refer to PT notes for sit to stands and fx mob. Pt's motivation fair. OT to address functional strength/ endurance for increased functional IND during tasks. All needs met, call light in reach. Education OT Patient Education: Progress toward Goal/Update tx plan, Purpose of tx/functional activities Teaching Recipient: Patient Teaching Methods: Demonstration, Discussion Response to Teaching: Verbalize Understanding, Return Demonstration OT Intermediate Goals Fuel Pilot Engineer Goals Time Frame: Feb 25, 2020 Oral Hygiene (QC): 6 Toileting Hygiene (QC): 3 Upper Body Dressing (QC): 3 Lower Body Dressing (QC): 3 On/Off Footwear (QC): 5 Pt IND with eating Pt showers with OT/ staff per report. OT to address skills pt would need to complete with higher IND without assist. Additional Goals: 1-Demonstrate ADL Tasks, 2-Verbalize Understanding, 3-ImproveStrength/Jason 1=Demonstrate adherence to instructed precautions during ADL tasks. 2=Patient will verbalize/demonstrate understanding of assistive devices/modifications for ADL. 3=Patient will improve strength/tolerance for activity to enable patient to perform ADL's. OT Education/Plan Problem List/Assessment Assessment: Decreased Activ Tolerance, Decreased UE Strength, Dependent Transfers, Impaired I ADL's, Impaired Self-Care Skills Discharge Recommendations Plan/Recommendations: Continue POC Therapy Discharge Recommendati: Scheduled Assistance, Post Acute OT Treatment Plan/Plan of Care Treatment,Training & Education: Yes Patient would benefit from OT for education, treatment and training to promote independence in ADL's, mobility, safety and/or upper extremity function for ADL's. Plan of Care: ADL Retraining, Functional Mobility, UE Funct Exercise/Act Treatment Duration: Feb 25, 2020 Frequency: 5 times per week Estimated Hrs Per Day: .25 hour per day Agreement: Yes Rehab Potential: Fair Time/GCodes Start Time: 09:28 Stop Time: 09:40 Total Time Billed (hr/min): 12 Billed Treatment Time 1 EVNancy (12) JORDAN ALCOCER OTR Feb 18, 2020 09:51
--- NOTE | 2020-02-18 09:57 | Physical Therapy Evaluation ---
PT Evaluation-General Medical Diagnosis Admission Date Feb 17, 2020 at 17:03 Medical Diagnosis: UTI/generalized weakness Onset Date: Feb 17, 2020 Therapy Diagnosis Therapy Diagnosis: generalized weakness/debility Height/Weight Height (Feet): 5 Height (Inches): 6 Weight (Pounds): 185 Precautions Precautions/Isolations: Fall Prevention, Standard Precautions Weight Bear Status Right Lower Extremity: Right Full Weight Bearing Left Lower Extremity: Left Full Weight Bearing Referral Physician: Vivienne Reason for Referral: Evaluation/Treatment Medical History Pertinent Medical History: Atrial Fib, DM, HTN, Hypothroidism, Renal Insufficiency Additional Medical History morbid obesity Current History EMS called by nurse secondary to not feeling well. Reviewed History: Yes Social History Home: Apartment Current Living Status: Spouse Entry Into Home: Level Entry Prior Prior Level of Function SCALE: Activities may be completed with or without assistive devices. 4-Lxkxzczbzv-mqtobvv completes the activity by him/herself with no assistance from a helper. 5-Set-up or Clean-up Assistance-helper sets up or cleans up; patient completes activity. [place] assists only prior to or following the activity. 4-Supervision or Touching Assistance-helper provides verbal cues and/or touching/steadying and/or contact guard assistance as patient completes a ctivity. Assistance may be provided throughout the activity or intermittently. 3-Partial/Moderate Assistance-helper does LESS THAN HALF the effort. [place] lifts, holds or supports trunk or limbs, but provides less than half the effort. 2-Substantial/Maximal Assistance-helper does MORE THAN HALF the effort. [place] lifts or holds trunk or limbs and provides more than half the effort. 4-Gernamxyu-fkrnks does ALL the effort. Patient does none of the effort to complete the activity. Or, the assistance of 2 or more helpers is required for the patient to complete the activity. If activity was not attempted, code reason: 7-Patient Refused. 9-Not Applicable-not attempted and the patient did not perform the activity before the current illness, exacerbation or injury. 10-Not Attempted due to Environmental Limitations-(lack of equipment, weather restraints, etc.). 88-Not Attempted due to Medical Conditions or Safety Concerns. Bed Mobility: 4 Transfers (B,C,W/C): 4 Gait: 4 Indoor Mobility (Ambulation): Needed Some Help Stairs: Not Applicalbe Prior Devices Use: Walker per patient, she has 6 hours of caregiver/day 7days/wk PT Evaluation-Current Subjective Patient reluctantly agrees to PT. Pain Numeric Pain Scale: 3 Location: Right Location Body Site: Ankle Pain Description: Ache Objective Patient Orientation: Person, Time, Situation Attachments: Central Line, Doshi Catheter ROM/Strength ROM Lower Extremities bilateral LE WFL Strength Lower Extremities 3/5 grossly bilateral LE Integumentary/Posture Integumentary refer to nursing notes Bladder Incontinence: Doshi Cath Posture WFL Neuromuscular (Tone, Coordination, Reflexes) grossly intact Sensory Vision: Wears Glasses Hearing: Functional Sensation Right Lower Extremit: Intact Sensation Left Lower Extremity: Intact Transfers Roll Left to Right (QC): 3 Lying to Sitting/Side of Bed(Q: 3 Sit to Stand (QC): 3 Chair/Swt-av-Irupk Xfer(QC): 3 Gait Does the Patient Walk?: Yes Mode of Locomotion: Both Anticipated Mode of Locomotion: Both Walk 10 feet (QC): 3 Walk 50 ft with 2 Turns(QC): 88 Walk 150 ft (QC): 9 Distance: 10' Gait Assistive Device: FWW Comments/Gait Description functional Balance Sitting Static: Normal Sitting Dynamic: Normal Standing Static: Good Standing Dynamic: Good Treatment patient ceases treatment due to not wanting to perform any more activity Assessment/Needs 79 y.o. female, will benefit from skilled PT to address functional strength and mobility to improve current LOF. Patient appears to self limit with physical activity. Physician notified. Rehab Potential: Guarded PT Mcfp Goals Solar System Installer Goals PT Mcfp Goals Time Frame: Feb 27, 2020 Roll Left & Right (QC): 4 Sit to Lying (QC): 4 Lying-Sitting on Side/Bed(QC): 4 Sit to Stand (QC): 4 Chair/Ozy-nx-Qimtx Xfer(QC): 4 Does the Patient Walk: Yes Walk 10 feet (QC): 4 Walk 50ft with 2 Turns (QC): 4 PT Plan Problem List Problem List: Activity Tolerance, Functional Strength, Safety, Balance, Gait, Transfer, Bed Mobility Treatment/Plan Treatment Plan: Continue Plan of Care Treatment Plan: Bed Mobility, Education, Functional Activity Jason, Functional Strength, Gait, Safety, Therapeutic Exercise, Transfers Treatment Duration: Feb 27, 2020 Frequency: 6 times per week Estimated Hrs Per Day: .25 hour per day Patient and/or Family Agrees t: Yes Discharge Recommendations Therapy Discharge Recommendati: Other, See Comments (skilled NH) Time/GCodes Time In: 855 Time Out: 914 Total Billed Treatment Time: 19 Total Billed Treatment 1 visit EVMod 19 min DASIA GUZMÁN PT Feb 18, 2020 09:57
[2020-02-18] MEDS ORDERED: FUROSEMIDE 40 MG (LASIX) TAB PO PRN (10:15)
--- NOTE | 2020-02-18 10:18 | History & Physical-Hospitalist ---
History of Present Illness HPI/Chief Complaint Pt is a 79yoCF with a PMH of CKD, recurrent UTIs, 2nd degree heart block with pacemaker, HTN, and IDDMII who presented to the ER due to weakness. She was seen by her home nurse orthopedic who thought she was not doing well and brought her to the ER for evaluation. She states she had a fever but then immediately states she did not have a high temperature. She denies any dysuria but complains of back pain. She also states she has had back pain for a long time and manages it by "laying around very carefully." She states at her baseline she only transfers from bed to chair to toilet and does not ambulate more than that. She overall feels not well and also has a headache. She is being monitored on telemetry and has had multiple PVCs and bouts of a-fib. She does have a pacemaker but states it was for a heart block and not a-fib. She also has a bruise on her left great toe and when asked what happened she states "in the middle of my floor." When I asked her if she fell she thinks that she did. Overall she is a very unclear historian and history is somewhat limited by that. Source: patient Date Seen 02/18/20 Time Seen by a Provider: 10:30 Attending Physician Tereso Palafox MD PCP No,Local Physician Referring Physician Date of Admission Feb 17, 2020 at 17:03 Home Medications & Allergies Home Medications Reviewed patient Home Medication Reconciliation performed by pharmacy medication reconciliations parking technician and/or nursing. Patients Allergies have been reviewed. Allergies Allergies Coded Allergies No Known Drug Allergies (Unverified02/17/20) Past Qqavjob-Cpbjmz-Glwjwf Hx Past Med/Social Hx: Reviewed Nursing Past Med/Soc Hx Patient Social History Marrital Status: Alcohol Use: Denies Use Recreational Drug Use: No Smoking Status: Never a Smoker Recent Foreign Travel: No Contact w/other who traveled: No Recent Hopitalizations: Yes (ferreira 1 wk ago for palpitations) Recent Infectious Disease Expo: No Immunizations Up To Date Date of Influenza Vaccine: Aug 06, 2016 Seasonal Allergies Seasonal Allergies: No Past Medical History Surgeries: Orthopedic, Pacemaker, Tonsillectomy Cardiac: Atrial Fibrillation, High Cholesterol, Hypertension, Irregular Heartbeat (heart block) Musculoskeletal: Fractures Endocrine: Hypothyroidsim, Diabetes, Non-Insulin dep Family History Reviewed Nursing Family Hx No Pertinent Family Hx Review of Systems Constitutional: No chills; fever, malaise, weakness EENTM: no symptoms reported Respiratory: no symptoms reported Cardiovascular: chest pain; No edema; Hx of Intervention; No palpitations Gastrointestinal: no symptoms reported Genitourinary: No dysuria; frequency, incontinence Musculoskeletal: back pain, muscle weakness Skin: no symptoms reported Psychiatric/Neurological: No Symptoms Reported Physical Exam Physical Exam Vital Signs Vital Signs - First Documented 02/17/20 16:11 Temp 36.7 Pulse 92 Resp 18 B/P (MAP) 105/60 (75) Pulse Ox 97 O2 Delivery Room Air Capillary Refill : Less Than 3 Seconds Height, Weight, BMI Height: 5'6" Weight: 185lbs. oz. 83.735591oc; 37.15 BMI Method:Estimated General Appearance: No Apparent Distress, Chronically ill, Obese HEENT: PERRL/EOMI, Moist Mucous Membranes; No Scleral Icterus (L), No Scleral Icterus (R) Neck: Normal Inspection, Supple Respiratory: Lungs Clear, No Accessory Muscle Use, No Respiratory Distress Cardiovascular: No JVD, No Murmur, Irregularly Irregular Gastrointestinal: Normal Bowel Sounds, Non Tender, Soft Extremity: Normal Capillary Refill, No Calf Tenderness, Other (left foot with brusing of great toe and on dorsal aspect of foot) Neurologic/Psychiatric: Alert, Oriented x3, Normal Mood/Affect Skin: Normal Color, Warm/Dry, Ecchymosis (as above) Results Results/Procedures Labs Laboratory Tests 02/17/20 16:23 02/18/20 05:42 Patient resulted labs reviewed. Imaging: Reviewed Imaging Report Imaging [facility], [place] NAME: PEDRO HERNANDEZ [facility] REC#: [id number] PT STATUS: ADM Dorothea : 1940 PHYSICIAN: JESUS LAUREANO APRN ADMIT DATE: 02/17/20 Signed Date of Exam:02/17/20 CHEST 1 VIEW, AP/PA ONLY HISTORY: Low back pain. Loss of consciousness. History of sepsis. COMPARISON: 11/01/2016. TECHNIQUE: Frontal view of the chest. FINDINGS: There is mild cardiomegaly with central vascular congestion. No focal airspace consolidation is seen. There is no significant pleural effusion or pneumothorax. The left-sided pacemaker appears stable. The right-sided Port-A-Cath tip projects over the cavoatrial junction. IMPRESSION: 1. Mild cardiomegaly with mild central vascular congestion. Assessment/Plan Admission Diagnosis UTI Admission Status: Observation Assessment and Plan UTI Weakness Not sepsis Continue abx await cultures PT/OT Vice President Of Product Marketing Heart block s/p pacemaker a-fib Continue home meds Consult cardiology Continue on telemetry echo ordered Request records from Dr Viramontes and Dr Monroy- had filled Xarelto in December and prophylactic Lovenox in December, she is unsure of why Foot pain known tib/fib fracture, nonhealing Will X-ray foot to evaluate for fracture IDDMII Resume home meds when able HTN Resume home meds Hypothyroidism Resume home meds Diagnosis/Problems Diagnosis/Problems (1) Urinary tract infection Status: Acute Qualifiers: Urinary tract infection type: acute cystitis Hematuria presence: without h ematuria Qualified Codes: N30.00 - Acute cystitis without hematuria (2) General weakness Status: Acute (3) Atrial fibrillation (4) Hyperlipidemia (5) Essential (primary) hypertension (6) Insulin dependent diabetes mellitus (7) Hypothyroidism (8) Debility (9) Tibia/fibula fracture Status: Chronic Qualifiers: Encounter type: sequela Fracture type: closed Laterality: left Qualified Codes: S82.202S - Unspecified fracture of shaft of left tibia, sequela; S82.402S - Unspecified fracture of shaft of left fibula, sequela Clinical Quality Measures DVT/VTE Risk/Contraindication: Risk Factor Score Per Nursin RFS Level Per Nursing on Admit: 4+=Very High TERESO PALAFOX MD Feb 18, 2020 10:17
[2020-02-18] MEDS ORDERED: ZOLP10TA PO (10:42)
[2020-02-18] MEDS ORDERED: ONDA-105 PO (10:42)
[2020-02-18] MEDS ORDERED: LEVO175T5 PO (10:42)
--- NOTE | 2020-02-18 11:11 | NUR ---
Inpatient rehab evaluation Physical therapy is familiar with this patient from home health visits. Patient reportedly has a non-healing tibia fracture since September and has weight bearing restrictions. It is reported that patient is minimally active at home and does not actively participate with therapy. Patient would not be able to tolerate the intensive rehabilitation therapy program at this time and does not meet criteria for admission to ARU at this time.
[2020-02-18] MEDS ORDERED: ROPI0.5T4 PO (11:38)
[2020-02-18] MEDS ORDERED: PREG75CA75 PO (11:38)
[2020-02-18] MEDS ORDERED: INSU100I29 SQ (11:44)
[2020-02-18] MEDS ORDERED: INSU100I14 SC (11:44)
--- NOTE | 2020-02-18 11:45 | NUR ---
SPOKE WITH THE PT, CALLED HER CELE, WENT THRU THE EXT MED HISTORY AND CALLED [facility] TO COMPLETE THE MED REC PT WAS UNSURE OF HER MEDICATIONS AND WHEN I ASKED ABOUT SPECIFIC MEDS LISTED ON THE EXT MED HISTORY SHE WAS UNABLE TO RECALL IF SHE TAKES. THERE WAS A NOTE IN HER ACCOUNT THAT A MED LIST WAS ATTACHED TO HER CHART- I FOUND THE MED LIST AND CALLED HER TO GO OVER IT. WHEN I READ OFF SOME OF THE MEDICATIONS ON THE MED LIST HE WAS NOT FAMILIAR WITH THEM- FOR THAT REASON I DONT THINK THE MED LIST IS CORRECT/UP TO DATE. CELE HAD ALL HER MED BOTTLES WITH HIM AND I ADD HIM TELL ME EVERYTHING SHE HAD. ALL MEDICATIONS HE LISTED ARE ON THE EXT MED HISTORY. LEVEMIR FLEX PENS LAST FILLED 06-11-2019 #5 PENS/150 DAY SUPPLY-I DID DOCUMENT THE PAST DUE FILL ON THE MED REC. CELE SAID SHE STILL HAS SOME PENS DUE TO HER BEING AT [facility] ARE AWHILE AND SHE WASNT USING HER HOME MEDS. OTC MEDS: VITAMIN
[2020-02-18 11:53] VITALS: BP 103/65
--- NOTE | 2020-02-18 12:57 | ST Cognitive Linguistic Eval ---
Speech Evaluation-General Medical Diagnosis UTI/ debility Onset Date: Feb 17, 2020 Therapy Diagnosis Therapy Diagnosis: Cognitive-communication Referral Referring Physician: Dr. Palafox Medical History Pertinent Medical History: Atrial Fib, DM, HTN, Hypothroidism, Renal Insufficiency Reviewed History: Yes Social History Current Living Status: Spouse Speech PLF-Current Status Prior Level of Function Patient lives at home with her spouse. She has in home care givers for her needs. Subjective Patient was cooperative with the cognitive assessment. Patient had c/o of RADIATION CONTROL WORKER making "rude comments to her". These were reported to my direct real estate office supervisor. Language Eval: Auditory Comprehends Simple Yes/No Ques: Functional Indent/Objects Multiple Reaves: Functional Follows 1-Step Commands: Functional Follows Complex Directions: Mild Follows General Conversations: Mild Patient is resistant to following directions. Language Eval: Verbal Language Completes Spontaneous Greeting: Functional Produces Auto, Serial Info: Functional Imitates Simple Words/Phrases: Functional Word Finding: Functional Requests Basic Needs: Functional States Basic Personal Info: Functional Expresses Complex Ideas: Mild Patient has difficulty following conversation at times. Patient was noted to self correct frequently. Objective Cognitive Domain Attention: Mild Memory: Mild Problem Solving: Functional Executive Functions: WNL Composite Severity Rating: Mild Objective Formal/Standardized Tests [facility] Mental Status ([facility]) Results 16/ (partial test) which falls in the mild neurocognitive disorder range Oral Motor/Speech Production Within Normal Limits Impression Patient is a 79 y/o female who was admitted to the hospital via ED due to debility and UTI. Patient was able to request needs ie: can you pull me up in the bed? Patient stated basic information. She was unable to complete reversal of number task and was not given the story section of the SLUMS. Her score of 16/22 is within Mild Neurocognitive Disorder. She was noted to have difficulty staying on task and was focused on pain throughout the eval. She did c/o her aid being rude to her which I reported to my direct real estate office supervisor. Patient required encouragement to continue conversation/eval. Patient's functional level may be worse at the moment due to pain and UTI. Patient's findings are not deemed appropriate for further ST at this time. Speech-Plan Patient/Family Goals Patient/Family Goals: Patient plans on returning to her home where she lives with her . Treatment Plan Speech Therapy Treatment Plan: Discontinue ST Treatment Duration: Feb 18, 2020 Frequency: 1 time per week Estimated Hrs Per Day: .25 hour per day Rehab Potential: Fair Barriers to Learning: Patient's medical status, mild cognitive deficits Pt/Family Agrees to Plan: Yes Safety Risks/Education Teaching Recipient: Patient Teaching Methods: Discussion Response to Teaching: Verbalize Understanding Education Topics Provided: Safety within her room, communication of wants/needs Time Speech Therapy Time In: 11:15 Speech Therapy Time Out: 11:30 Total Billed Time: 15 Billed Treatment Time 1[address] ST Feb 18, 2020 12:57
[2020-02-18] MEDS: ENOXAPARIN 100 MG/1 ML (LOVENOX) SYR SC SCH ×2 (13:07→20:41)
--- NOTE | 2020-02-18 13:13 | NUR ---
URINE DRUG SCREEN TO LAB.
[2020-02-18 13:30] LABS: AMPHETAMINE SCREEN, URINE NEGATIVE (NEGATIVE); BARBITURATE SCREEN URINE NEGATIVE (NEGATIVE); BENZODIAZEPINES SCREEN URINE POSITIVE (NEGATIVE); CANNABINOID SCREEN, URINE NEGATIVE (NEGATIVE); COCAINE SCREEN URINE NEGATIVE (NEGATIVE); METHADONE STAT NEGATIVE (NEGATIVE); METHAMPHETAMINE SCREEN URINE S NEGATIVE (NEGATIVE); OPIATE SCREEN URINE POSITIVE (NEGATIVE); OXYCODONE STAT NEGATIVE (NEGATIVE); PROPOXYPHENE STAT NEGATIVE (NEGATIVE); TRICYCLIC ANTIDEPRESSANTS SCRE NEGATIVE (NEGATIVE)
[2020-02-18] MEDS ORDERED: NON-FORMULARY MEDICATION 1 EA EA (Ondansetron HCl 4 MG) PO PRN (13:45)
[2020-02-18] MEDS ORDERED: NON-FORMULARY MEDICATION 1 EA EA (Meloxicam 15 MG) PO PRN (13:45)
[2020-02-18] MEDS ORDERED: ALPRAZolam 0.5 MG (XANAX) TAB PO PRN (13:45)
[2020-02-18] MEDS ORDERED: ONDANSETRON 4 MG (ZOFRAN) ORAL DISSOLVE TAB PO PRN (14:00)
[2020-02-18] MEDS ORDERED: REGADENOSON 0.4 MG/5 ML SYR (LEXISCAN) IV ONE (14:00)
[2020-02-18] MEDS ORDERED: MELOXICAM 7.5 MG (MOBIC) TABLET PO PRN (14:00)
--- NOTE | 2020-02-18 14:28 | Diagnostic Imaging Report ---
INDICATION: Fall with left foot and ankle bruising and pain. TIME OF EXAM: 01:54 p.m. FINDINGS: Two views of the left foot are obtained. There is an acute-appearing fracture at the base of the proximal phalanx of the great toe. Fracture line appears to extend to the articular surface of the MTP joint. No displacement is seen. Remaining phalanges are intact. The metatarsals appear to be intact. Mid foot is unremarkable. There is comminuted fracture of the distal tibia which shows a medial plate and numerous screws. There is also a non-fixated distal fibular fracture. IMPRESSION: 1. Proximal phalangeal fracture of the great toe with intra-articular extension to the MTP joint. 2. Distal tibial and fibular fractures. Dictated by: Dictated on workstation # [id number]
[2020-02-18] MEDS: ACETAMINOPHEN 500 MG TAB (TYLENOL) PO PRN ×2 (14:30→20:37)
--- NOTE | 2020-02-18 14:30 | NUR ---
CHANGED TO NO CAFFEINE DIET AND NPO AFTER MN. TYLENOL PO FOR PAIN.
--- NOTE | 2020-02-18 14:54 | NUR ---
CM/SS visited with patient for discharge planning. The patient was in bed when this ss walked in. She was very pleasant and appropriate with this ss. The patient states that she is not feeling the best but is willing to talk. The patient's face sheet reports that she lives in [place]; however she is currently living right outside of [place] with her . The current phone number is [phone]. Caregivers: The patient states that her and her require a private caregiver. 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 Home Health: The patient reports that she uses [facility] home [facility] from [place]. They have been her home health agency for a "long time" according to the patient. Skilled Facility: The patient reports that she has had multiple admissions to [facility] in the past 2 years due to varying illnesses/surgeries. She states that she was just a [facility] not long ago. The patients nurse reports that patients daughter called concerned about Percocet's being in the home. According to daughter, the home health nurse was finding pills around the home but patient is not being prescribed any. A UDS screening was done on the patient after these comments were made to the nurse. It came back positive. CM/SS has not addressed this yet. Will continue to follow.
--- NOTE | 2020-02-18 15:26 | Consultation-Cardiology ---
HPI-Cardiology Cardiology Consultation Date of Consultation 02/18/20 Date of Admission Time Seen by Provider: 15:22 Indication: paroxysmal atrial fibrillation HPI 79 years old lady with history of paroxysmal atrial fibrillation, brief episode, history of SVT, permanent pacemaker. Admitted for generalized weakness and urinary tract infection. While on monitor it was noted to have multiple episodes of rapid heartrate an episode of wide-complex tachycardia. I was called for evaluation, patient is unable to provide a full history. She is on flecainide, not taking oral anticoagulation. No previous history of heart attack or stent. Currently asymptomatic. Home Medications & Allergies Allergies: Coded Allergies: No Known Drug Allergies (Unverified , 02/17/20) Home Medication List Reviewed: Yes VCN-Lzlqat-Kixrey Hx Patient Social History Marital Status: Alcohol Use: Denies Use Recreational Drug Use: No Smoking Status: Never a Smoker Recent Foreign Travel: No Recent Infectious Disease Expo: No Recent Hopitalizations: Yes (ferreira 1 wk ago for palpitations) Immunizations Up To Date Date of Influenza Vaccine: Aug 06, 2016 Past Medical History Discussed below Review of Systems-General Review of Systems Constitutional: see HPI; No chills, No fever; weakness EENTM: see HPI Respiratory: see HPI; No cough, No short of breath Cardiovascular: no symptoms reported; No chest pain Gastrointestinal: no symptoms reported, see HPI Genitourinary: no symptoms reported Musculoskeletal: no symptoms reported, see HPI Skin: no symptoms reported, see HPI Psychiatric/Neurological: No Symptoms Reported Reviewed Test Results Reviewed Test Results Lab Laboratory Tests Test 02/17/20 16:23 02/17/20 16:32 02/17/20 20:53 02/18/20 05:17 Range/Units White Blood Count 12.5 H 4.3-11.0 10^3/uL Red Blood Count 3.94 L 4.35-5.85 10^6/uL Hemoglobin 12.0 11.5-16.0 G/DL Hematocrit 37 35-52 % Mean Corpuscular Volume 93 80-99 FL Mean Corpuscular Hemoglobin 31 25-34 PG Mean Corpuscular Hemoglobin Concent 33 32-36 G/DL Red Cell Distribution Width 18.4 H 10.0-14.5 % Platelet Count 205 130-400 10^3/uL Mean Platelet Volume 10.9 H 7.4-10.4 FL Neutrophils (%) (Auto) 80 H 42-75 % Lymphocytes (%) (Auto) 12 12-44 % Monocytes (%) (Auto) 7 0-12 % Eosinophils (%) (Auto) 0 0-10 % Basophils (%) (Auto) 0 0-10 % Neutrophils # (Auto) 10.0 H 1.8-7.8 X 10^3 Lymphocytes # (Auto) 1.5 1.0-4.0 X 10^3 Monocytes # (Auto) 0.9 0.0-1.0 X 10^3 Eosinophils # (Auto) 0.1 0.0-0.3 10^3/uL Basophils # (Auto) 0.0 0.0-0.1 10^3/uL Prothrombin Time 14.3 12.2-14.7 SEC INR Comment 1.1 0.8-1.4 Activated Partial Thromboplast Time 62 H 24-35 SEC Sodium Level 135 135-145 MMOL/L Potassium Level 5.2 H 3.6-5.0 MMOL/L Chloride Level 100 98-107 MMOL/L Carbon Dioxide Level 23 21-32 MMOL/L Anion Gap 12 5-14 MMOL/L Blood Urea Nitrogen 33 H 7-18 MG/DL Creatinine 1.13 0.60-1.30 MG/DL Estimat Glomerular Filtration Rate 46 BUN/Creatinine Ratio 29 Glucose Level 161 H 70-105 MG/DL Lactic Acid Level 1.35 0.50-2.00 MMOL/L Calcium Level 9.0 8.5-10.1 MG/DL Corrected Calcium 9.4 8.5-10.1 MG/DL Total Bilirubin 0.8 0.1-1.0 MG/DL Aspartate Amino Transf (AST/SGOT) 38 H 5-34 U/L Alanine Aminotransferase (ALT/SGPT) 21 0-55 U/L Alkaline Phosphatase 46 40-136 U/L Total Protein 7.0 6.4-8.2 GM/DL Albumin 3.5 3.2-4.5 GM/DL Urine Color YELLOW Urine Clarity TURBID Urine pH 6.0 5-9 Urine Specific [place] >=1.030 1.016-1.022 Urine Protein NEGATIVE NEGATIVE Urine Glucose (UA) NEGATIVE NEGATIVE Urine Ketones NEGATIVE NEGATIVE Urine Nitrite POSITIVE H NEGATIVE Urine Bilirubin NEGATIVE NEGATIVE Urine Urobilinogen 0.2 < = 1.0 MG/DL Urine Leukocyte Esterase 2+ H NEGATIVE Urine RBC (Auto) 1+ H NEGATIVE Urine RBC NONE /HPF Urine WBC TNTC H /HPF Urine Crystals NONE /LPF Urine Bacteria LARGE H /HPF Urine Casts NONE /LPF Urine Mucus SMALL H /LPF Urine Culture Indicated CULTURE PENDING Glucometer 212 H 158 H 70-110 MG/DL Test 02/18/20 05:42 02/18/20 10:45 02/18/20 13:10 Range/Units White Blood Count 12.9 H 4.3-11.0 10^3/uL Red Blood Count 3.89 L 4.35-5.85 10^6/uL Hemoglobin 12.0 11.5-16.0 G/DL Hematocrit 36 35-52 % Mean Corpuscular Volume 93 80-99 FL Mean Corpuscular Hemoglobin 31 25-34 PG Mean Corpuscular Hemoglobin Concent 33 32-36 G/DL Red Cell Distribution Width 18.4 H 10.0-14.5 % Platelet Count 197 130-400 10^3/uL Mean Platelet Volume 10.9 H 7.4-10.4 FL Neutrophils (%) (Auto) 65 42-75 % Lymphocytes (%) (Auto) 25 12-44 % Monocytes (%) (Auto) 8 0-12 % Eosinophils (%) (Auto) 1 0-10 % Basophils (%) (Auto) 1 0-10 % Neutrophils # (Auto) 8.4 H 1.8-7.8 X 10^3 Lymphocytes # (Auto) 3.3 1.0-4.0 X 10^3 Monocytes # (Auto) 1.0 0.0-1.0 X 10^3 Eosinophils # (Auto) 0.1 0.0-0.3 10^3/uL Basophils # (Auto) 0.1 0.0-0.1 10^3/uL Sodium Level 136 135-145 MMOL/L Potassium Level 4.7 3.6-5.0 MMOL/L Chloride Level 101 98-107 MMOL/L Carbon Dioxide Level 21 21-32 MMOL/L Anion Gap 14 5-14 MMOL/L Blood Urea Nitrogen 30 H 7-18 MG/DL Creatinine 1.24 0.60-1.30 MG/DL Estimat Glomerular Filtration Rate 42 BUN/Creatinine Ratio 24 Glucose Level 165 H 70-105 MG/DL Calcium Level 9.1 8.5-10.1 MG/DL Corrected Calcium 9.7 8.5-10.1 MG/DL Total Bilirubin 1.0 0.1-1.0 MG/DL Aspartate Amino Transf (AST/SGOT) 85 H 5-34 U/L Alanine Aminotransferase (ALT/SGPT) 52 0-55 U/L Alkaline Phosphatase 41 40-136 U/L Total Protein 6.5 6.4-8.2 GM/DL Albumin 3.2 3.2-4.5 GM/DL Glucometer 215 H 70-110 MG/DL Urine Opiates Screen POSITIVE H NEGATIVE Urine Oxycodone Screen NEGATIVE NEGATIVE Urine Methadone Screen NEGATIVE NEGATIVE Urine Propoxyphene Screen NEGATIVE NEGATIVE Urine Barbiturates Screen NEGATIVE NEGATIVE Ur Tricyclic Antidepressants Screen NEGATIVE NEGATIVE Urine Phencyclidine Screen NEGATIVE NEGATIVE Urine Amphetamines Screen NEGATIVE NEGATIVE Urine Methamphetamines Screen NEGATIVE NEGATIVE Urine Benzodiazepines Screen POSITIVE H NEGATIVE Urine Cocaine Screen NEGATIVE NEGATIVE Urine Cannabinoids Screen NEGATIVE NEGATIVE Physical Exam Physical Exam Vital Signs Vital Signs - First Documented 02/17/20 16:11 Temp 36.7 Pulse 92 Resp 18 B/P (MAP) 105/60 (75) Pulse Ox 97 O2 Delivery Room Air Capillary Refill : Less Than 3 SecondsLess Than 3 Seconds Height, Weight, BMI Height: 5'6" Weight: 185lbs. oz. 83.827753ir; 37.15 BMI Method:Estimated General Appearance: No Apparent Distress, WD/WN, Chronically ill, Obese Eyes: Bilateral Eye Normal Inspection, Bilateral Eye PERRL, Bilateral Eye EOMI Neck: Full Range of Motion, Normal Inspection Respiratory: Lungs Clear, No Accessory Muscle Use, No Respiratory Distress (HR 77, BP 105/63, 94%. No distress, alert and oriented, recalls all events. Dry mucous membranes. ) Cardiovascular: Regular Rate, Rhythm, No Edema, Systolic Murmur Gastrointestinal: Non Tender, Soft Back: Normal Inspection, No CVA Tenderness Extremity: Normal Capillary Refill Neurologic/Psychiatric: Alert, Oriented x3 Skin: Normal Color A/P-Cardiology Admission Diagnosis Paroxysmal atrial fibrillation Ventricular tachycardia Cardiac pacemaker Hypertension Assessment/Plan Paroxysmal atrial fibrillation, has been on flecainide. No recent cardiac workup, planning to stop flecainide at this point, evaluate Lexiscan stress t est. Continue to monitor. White complex tachycardia, questionable atrial fibrillation with aberrant conduction versus ventricular tachycardia, patient has been maintained on flecainide. I will hold the medication, use Toprol-XL 25 mg daily and evaluate tolerance and response History of permanent pacemaker secondary to complete heart block. Followed by Dr. Viramontes. Last checkup was done in August 2019. Last cardiac catheterization according to Dr. Viramontes was done in 2008, last stress test was done in 2015, planning to repeat stress test Hypertension, controlled on current medication, monitor blood pressure Urinary tract infection managed by primary care team Hypothyroidism, continue to monitor Generalized weakness, debility, starting physical therapy Clinical Quality Measures DVT/VTE Risk/Contraindication: Risk Factor Score Per Nursin RFS Level Per Nursing on Admit: 4+=Very High SHINE ROQUE MD Feb 18, 2020 3:26 pm
[2020-02-18 16:20] VITALS: BP 118/74
[2020-02-18] MEDS ORDERED: cefTRIAXone 1,000 MG/SWFI 10 ML IV PUSH IV SCH ×2 (17:00)
[2020-02-18 19:50] VITALS: BP 136/79
[2020-02-18] MEDS: PREGABALIN 75 MG (LYRICA) CAP PO SCH (20:36)
[2020-02-18] MEDS: ZOLPIDEM 5 MG (AMBIEN) TAB PO PRN (20:36)
[2020-02-18] MEDS ORDERED: NON-FORMULARY MEDICATION 1 EA EA (Ropinirole HCl 1 MG) PO SCH (21:00)
[2020-02-18] MEDS ORDERED: rOPINIRole 1 MG (REQUIP) TABLET PO SCH (21:00)
[2020-02-18] MEDS ORDERED: FLECAINIDE 100 MG (TAMBOCOR) TAB PO SCH (21:00)
[2020-02-18] MEDS ORDERED: NON-FORMULARY MEDICATION 1 EA EA (Insulin Detemir (Levemir Flextouch) 10 UNIT) SQ SCH (21:00)
[2020-02-19] VITALS: BP 99/67
[2020-02-19] MEDS: LACTATED RINGERS 1,000 ML IV SCH (03:06)
[2020-02-19] MEDS: ACETAMINOPHEN 500 MG TAB (TYLENOL) PO PRN (03:15)
[2020-02-19 04:00] VITALS: BP 135/83
[2020-02-19] MEDS: inSUlin ASPART (NovoLOG) 1 UNIT/0.01 ML (CHARGE PER UNIT) SC SCH ×2 (06:24→11:26)
[2020-02-19] MEDS ORDERED: LEVOTHYROXINE 75 MCG (LEVOTHROID) TABLET PO SCH (06:30)
[2020-02-19] MEDS ORDERED: LEVOTHYROXINE 100 MCG (LEVOTHROID) TAB PO SCH (06:30)
[2020-02-19 08:00] VITALS: BP 115/88
[2020-02-19] MEDS ORDERED: KETOROLAC 15 MG/ML VIAL ONE (08:13)
[2020-02-19] MEDS ORDERED: KETOROLAC 15 MG/ML VIAL IVP ONE (08:15)
[2020-02-19] MEDS ORDERED: NON-FORMULARY MEDICATION 1 EA EA (Levothyroxine Sodium 175 MCG) PO SCH (09:00)
--- NOTE | 2020-02-19 09:07 | Physical Therapy Daily Note ---
PT Daily Note-Current Subjective Patient initially declined PT, however, after much encouragement, patient agrees to up in recliner. Pain Numeric Pain Scale: 0-No Pain Location: No Pain Reported Mental Status Patient Orientation: Normal For Age Attachments: Doshi Catheter, IV Transfers SCALE: Activities may be completed with or without assistive devices. 3-Zsfacvklwi-xdkhcbc completes the activity by him/herself with no assistance from a helper. 5-Set-up or Clean-up Assistance-helper sets up or cleans up; patient completes activity. [place] assists only prior to or following the activity. 4-Supervision or Touching Assistance-helper provides verbal cues and/or touching/steadying and/or contact guard assistance as patient completes activity. Assistance may be provided throughout the activity or intermittently. 3-Partial/Moderate Assistance-helper does LESS THAN HALF the effort. [place] lifts, holds or supports trunk or limbs, but provides less than half the effort. 2-Substantial/Maximal Assistance-helper does MORE THAN HALF the effort. [place] lifts or holds trunk or limbs and provides more than half the effort. 4-Pfetvttoh-qsmyoo does ALL the effort. Patient does none of the effort to complete the activity. Or, the assistance of 2 or more helpers is required for the patient to complete the activity. If activity was not attempted, code reason: 7-Patient Refused. 9-Not Applicable-not attempted and the patient did not perform the activity before the current illness, exacerbation or injury. 10-Not Attempted due to Environmental Limitations-(lack of equipment, weather restraints, etc.). 88-Not Attempted due to Medical Conditions or Safety Concerns. Roll Left & Right (QC): 2 Lying to Sitting/Side of Bed(Q: 2 Sit to Stand (QC): 2 Chair/Spi-ll-Xnfop Xfer(QC): 2 Weight Bearing Right Lower Extremity: Right Full Weight Bearing Left Lower Extremity: Left Full Weight Bearing Gait Training Does the Patient Walk?: No and Walking Goal NOT indicated Assessment Patient is up in recliner and declined exercises. PT will attempt to increase activity as tolerated by patient. PT Group Home Goals Manager Agricultural Goals PT Manager Agricultural Goals Time Frame: Feb 27, 2020 Roll Left & Right (QC): 4 Sit to Lying (QC): 4 Lying-Sitting on Side/Bed(QC): 4 Sit to Stand (QC): 4 Chair/Rsb-ys-Gmtaj Xfer(QC): 4 Does the Patient Walk: Yes Walk 10 feet (QC): 4 Walk 50ft with 2 Turns (QC): 4 PT Plan Treatment/Plan Treatment Plan: Continue Plan of Care Treatment Plan: Bed Mobility, Education, Functional Activity Jason, Functional Strength, Gait, Safety, Therapeutic Exercise, Transfers Treatment Duration: Feb 27, 2020 Frequency: 6 times per week Estimated Hrs Per Day: .25 hour per day Patient and/or Family Agrees t: Yes Time/GCodes Time In: 833 Time Out: 850 Total Billed Treatment Time: 17 Total Billed Treatment 1 visit FA 17 min DASIA GUZMÁN PT Feb 19, 2020 09:07
[2020-02-19] MEDS: PREGABALIN 75 MG (LYRICA) CAP PO SCH ×2 (09:37→14:33)
--- NOTE | 2020-02-19 10:13 | Occ Therapy Progress Note ---
Therapy Progress Note Attempted tx session ~815. Pt denies as she has "pain in chest," and "very tired." Nursing present and aware. All needs met. OT to attempt later time. JORDAN ALCOCER OTR Feb 19, 2020 10:13
--- NOTE | 2020-02-19 11:00 | Cardiology Progress Note ---
Subjective Date Seen by Provider: Feb 19, 2020 Time Seen by Provider: 10:59 Subjective/Events-last exam Patient is laying down in the recliner, had some chest pain earlier today, currently feeling better. No new complaint Review of Systems General: No Chills, No Night Sweats, No Fatigue, No Malaise, No Appetite, No Other HEENT: No Head Aches, No Visual Changes, No Eye Pain, No Ear Pain, No Dysphasia, No Sinus Congestion, No Post Nasal Drip, No Sore Throat, No Other Pulmonary: No Dyspnea, No Cough, No Pleuritic Chest Pain, No Other Cardiovascular: No: Chest Pain, Palpitations, Orthopnea, Paroxysmal Noc. Dyspnea, Edema, Lt Headedness, Other Focused Exam Lactate Level 02/17/20 16:23: Lactic Acid Level 1.35 Objective-Cardiology Exam Last Set of Vital Signs Vital Signs 02/19/20 08:00 Temp 36.7 Pulse 66 Resp 20 B/P (MAP) 115/88 (97) Pulse Ox 100 O2 Delivery Room Air Capillary Refill : Less Than 3 SecondsLess Than 3 Seconds I&O Intake and Output 02/19/20 00:00 Intake Total 2655 ml Output Total 600 ml Balance 2055 ml Intake Oral 645 ml IV Total 2010 ml Output Urine Total 600 ml # Bowel Movements 4 General: Alert, Oriented X3, Cooperative HEENT: Atraumatic, PERRLA Neck: Supple, No JVD, No Thyromegaly Lungs: Clear to Auscultation, Normal Air Movement Heart: Regular Rate, Normal S1, Normal S2, No Murmurs Abdomen: Normal Bowel Sounds, Soft, No Tenderness, No Hepatosplenomegaly, No Masses Extremities: No Clubbing, No Cyanosis, No Edema, Normal Pulses, No Tenderness/Swelling Skin: No Rashes, No Breakdown, No Significant Lesion Neuro: Normal Gait, Normal Speech, Strength at 5/5 X4 Ext, Normal Tone, Sensation Intact Psych/Mental Status: Mental Status NL, Mood NL Results Lab Laboratory Tests Test 02/18/20 13:10 02/18/20 15:35 02/18/20 19:55 02/19/20 05:59 Range/Units Urine Opiates Screen POSITIVE H NEGATIVE Urine Oxycodone Screen NEGATIVE NEGATIVE Urine Methadone Screen NEGATIVE NEGATIVE Urine Propoxyphene Screen NEGATIVE NEGATIVE Urine Barbiturates Screen NEGATIVE NEGATIVE Ur Tricyclic Antidepressants Screen NEGATIVE NEGATIVE Urine Phencyclidine Screen NEGATIVE NEGATIVE Urine Amphetamines Screen NEGATIVE NEGATIVE Urine Methamphetamines Screen NEGATIVE NEGATIVE Urine Benzodiazepines Screen POSITIVE H NEGATIVE Urine Cocaine Screen NEGATIVE NEGATIVE Urine Cannabinoids Screen NEGATIVE NEGATIVE Glucometer 144 H 207 H 95 70-110 MG/DL A/P-Cardiology Admission Diagnosis Paroxysmal atrial fibrillation Ventricular tachycardia Cardiac pacemaker Hypertension Assessment/Plan Paroxysmal atrial fibrillation, has been on flecainide. Will discontinue flecainide and started on beta blockers and monitor tolerance and response White complex tachycardia, questionable atrial fibrillation with aberrant conduction versus ventricular tachycardia, patient has been maintained on flecainide, it was stopped and started on Toprol-XL 25 mg daily. Planning to evaluate stress test History of permanent pacemaker secondary to complete heart block. Followed by Dr. Viramontes. Last checkup was done in August 2019. Last cardiac catheterization according to Dr. Viramontes was done in 2008, last stress test was done in 2015, planning to repeat stress test Hypertension, controlled on current medication, monitor blood pressure Urinary tract infection managed by primary care team Hypothyroidism, continue to monitor Generalized weakness, debility, starting physical therapy Clinical Quality Measures DVT/VTE Risk/Contraindication: Risk Factor Score Per Nursin RFS Level Per Nursing on Admit: 4+=Very High SHINE ROQUE MD Feb 19, 2020 11:00
[2020-02-19] MEDS ORDERED: REGADENOSON 0.4 MG/5 ML SYR (LEXISCAN) IV ONE (11:50)
[2020-02-19 12:00] VITALS: BP 149/90
--- NOTE | 2020-02-19 13:00 | Progress Note - Hospitalist ---
Subjective HPI/CC On Admission Date Seen by Provider: Feb 19, 2020 Time Seen by Provider: 12:56 Pt is a 79yoCF with a PMH of CKD, recurrent UTIs, 2nd degree heart block with pacemaker, HTN, and IDDMII who presented to the ER due to weakness. She was seen by her home small battery plate assembler who thought she was not doing well and brought her to the ER for evaluation. She states she had a fever but then immediately states she did not have a high temperature. She denies any dysuria but complains of back pain. She also states she has had back pain for a long time and manages it by "laying around very carefully." She states at her baseline she only transfers from bed to chair to toilet and does not ambulate more than that. She overall feels not well and also has a headache. She is being monitored on telemetry and has had multiple PVCs and bouts of a-fib. She does have a pacemaker but states it was for a heart block and not a-fib. She also has a bruise on her left great toe and when asked what happened she states "in the middle of my floor." When I asked her if she fell she thinks that she did. Overall she is a very unclear historian and history is somewhat limited by that. Subjective/Events-last exam Pt reports feeling ok today. Had some paint this morning. No complaints while I was at the bedside. Focused Exam Lactate Level 02/17/20 16:23: Lactic Acid Level 1.35 Objective Exam Vital Signs Vital Signs Date Time Temp Pulse Resp B/P (MAP) Pulse Ox O2 Delivery O2 Flow Rate FiO2 02/19/20 12:27 65 02/19/20 12:00 36.3 20 149/90 (109) 96 Room Air Capillary Refill : Less Than 3 SecondsLess Than 3 Seconds General Appearance: Chronically ill, Obese Respiratory: Lungs Clear, No Respiratory Distress Cardiovascular: No Murmur, Irregularly Irregular Gastrointestinal: Normal Bowel Sounds, Non Tender, Soft Neurologic/Psychiatric: Alert, Oriented x3 Results/Procedures Lab Patient resulted labs reviewed. Assessment/Plan Assessment and Plan Assess & Plan/Chief Complaint UTI Weakness Currently on Rocephin- will switch to Bactrim upon discharge per sensitivities PT/OT Pharmacy Resident Heart block s/p pacemaker a-fib Mild CAD Continue home meds Consult cardiology Continue on telemetry echo shows EF of 40-45% Stress test today IDDMII Resume home meds when able HTN Resume home meds Hypothyroidism Resume home meds Diagnosis/Problems Diagnosis/Problems (1) Urinary tract infection Status: Acute Qualifiers: Urinary tract infection type: acute cystitis Hematuria presence: without hematuria Qualified Codes: N30.00 - Acute cystitis without hematuria (2) General weakness Status: Acute (3) Atrial fibrillation (4) Hyperlipidemia (5) Essential (primary) hypertension (6) Insulin dependent diabetes mellitus (7) Hypothyroidism (8) Debility Clinical Quality Measures DVT/VTE Risk/Contraindication: Risk Factor Score Per Nursin RFS Level Per Nursing on Admit: 4+=Very High TERESO HINDS MD Feb 19, 2020 13:00
--- NOTE | 2020-02-19 13:30 | Cardiology Stress Test Report ---
Stress Test Report Date of Procedure/Referring: Date of Procedure: Feb 19, 2020 PCP Chhaya Palafox MD Admitting Physician No,Local Physician Indications: Chest pain Baseline Heart Rate: 90 Baseline Blood Pressure: Blood Pressure Systolic: 115 Blood Pressure Diastolic: 88 Baseline EKG: Baseline EKG: atrial fibrillation Summary: Patient received 0.4 mg Lexiscan for stress test, ECG, heart rate and blood pressure were monitored continuously. Resting and stress dose of radio tracer were injected, imaging was acquired and reviewed in short axis, horizontal long axis and vertical long axis views. TID 0.94 SSS 19 SDS 8 EF 32% Conclusion: 1. Patient tolerated Lexiscan well, had some chest pain after Lexiscan injection 2. Baseline atrial fibrillation persisted during test 3. Decreased uptake involving the whole inferior wall, basal inferior septum and inferolateral wall with reversible ischemia involving the inferior wall 4. Prominent left ventricle with diffuse left ventricular hypokinesia, calculated ejection fraction 32 percent, gated images are unreliable due to underlying atrial fibrillation SHINE ROQUE MD Feb 19, 2020 13:30
--- NOTE | 2020-02-19 13:35 | NUR ---
RD ASSESSMENT PMHx: CKD; chronic-UTI; HTN; afib; hypercholesterolemia; DM; hypothyroidism PT INTERACTION: Pt was awake and pleasant during nutrition assessment. Pt states current appetite is poor, attributing it to depression. Note pt is currently NPO, and pt has been refusing meals, per chart review. Pt states "I'm supposed to be following a low-CHO diet." PT states no issues with chewing/swallowing food. Pt states no recent issues with nausea, vomiting, or constipation. Pt states some recent issues with diarrhea. Note last BM was 02/17, and pt not currently on bowel regimen per chart review. Pt states unsure of recent wt changes. Note unable to determine recent wt hx, per chart review. Pt states current DM management as "pretty fair." Note unable to determine recent HbA1c, per chart review. ABNORMAL NUTRITION-RELATED LAB VALUES LOW: HIGH: BUN 30; glu 165; AST 85 Est. kcal needs: 5211-9038 kcal | 15-18 kcal/kg Est. Pro needs: 84-105 g Pro | 0.8-1.0 g Pro/kg PES STATEMENT: Inadequate oral intake (NI-2.1) related to loss of appetite | depression as evidenced by pt interview INTERVENTION: Note pt currently NPO, pending procedure. Would recommending advancing diet when medically able and as tolerated. Provided and discussed handout on CHO counting. Also discussed CHO amounts in common foods. Pt verbalized understanding of information provided. Provided contact information if pt had questions upon discharge. Will continue to follow and reassess as pt needs, intake, and status change. MONITOR/EVALUATE: PO Intake; Plan of Care; Hydration Status; Weight Status; Lab Values Zeinab Mcnally, , RD, LD
--- NOTE | 2020-02-19 14:13 | Occupational Ther Daily Note ---
OT Current Status-Daily Note Subjective Pt seen in chair post-stress test. Pt states just got back to room. Still NPO at this time. Pt agrees to toileting, states she will go home this afternoon. ADL-Treatment Therapy Code Descriptions/Definitions Functional [place] Measure: 0=Not Assessed/NA 4=Minimal Assistance 1=Total Assistance 5=Supervision or Setup 2=Maximal Assistance 6=Modified Grant 3=Moderate Assistance 7=Complete IndependenceSCALE: Activities may be completed with or without assistive devices. 9-Paypmgobep-xnkfnfr completes the activity by him/herself with no assistance from a helper. 5-Set-up or Clean-up Assistance-helper sets up or cleans up; patient completes activity. [place] assists only prior to or following the activity. 4-Supervision or Touching Assistance-helper provides verbal cues and/or touching/steadying and/or contact guard assistance as patient completes activity. Assistance may be provided throughout the activity or intermittently. 3-Partial/Moderate Assistance-helper does LESS THAN HALF the effort. [place] lifts, holds or supports trunk or limbs, but provides less than half the effort. 2-Substantial/Maximal Assistance-helper does MORE THAN HALF the effort. [place] lifts or holds trunk or limbs and provides more than half the effort. 5-Deawriqaa-niwdbc does ALL the effort. Patient does none of the effort to complete the activity. Or, the assistance of 2 or more helpers is required for the patient to complete the activity. If activity was not attempted, code reason: 7-Patient Refused. 9-Not Applicable-not attempted and the patient did not perform the activity before the current illness, exacerbation or injury. 10-Not Attempted due to Environmental Limitations-(lack of equipment, weather restraints, etc.). 88-Not Attempted due to Medical Conditions or Safety Concerns. Toileting Hygiene (QC): 2 Toilet Transfer (QC): 4 Other Treatment Pt sit to stand with min A from recliner. Sits at BSC placed at recliner with limited control with CGA. Pt states 8-9/10 pain at this time to practical nursing teacher. Pt educated on diaphragmatic breathing for pain management. Pt unable to fully return demonstrate. Pt completes small amount of loose BM, able to clean minimally from front. Pt instructs OT that caregiver assists as pt bends from waist from the back. Pt bends and OT assists with clean up with max A. Pt sit to stand from commode with mod A, returns to sit in recliner CGA. Pt left with administrative assistant receptionist present, all needs met, call light in reach. Education OT Patient Education: Modified ADL techniques, Purpose of tx/functional activities Teaching Recipient: Patient Teaching Methods: Demonstration, Discussion Response to Teaching: Verbalize Understanding, Return Demonstration, Reinfor cement Needed OT Retirement Goals Melting Operator Goals Time Frame: Feb 25, 2020 Oral Hygiene (QC): 6 Toileting Hygiene (QC): 3 Upper Body Dressing (QC): 3 Lower Body Dressing (QC): 3 On/Off Footwear (QC): 5 Pt IND with eating Pt showers with OT/ staff per report. OT to address skills pt would need to complete with higher IND without assist. Additional Goals: 1-Demonstrate ADL Tasks, 2-Verbalize Understanding, 3- ImproveStrength/Jason 1=Demonstrate adherence to instructed precautions during ADL tasks. 2=Patient will verbalize/demonstrate understanding of assistive devices/modifications for ADL. 3=Patient will improve strength/tolerance for activity to enable patient to perform ADL's. OT Education/Plan Problem List/Assessment Assessment: Decreased Activ Tolerance, Dependent Transfers, Impaired Funct Balance, Impaired I ADL's, Impaired Self-Care Skills Discharge Recommendations Plan/Recommendations: Continue POC Therapy Discharge Recommendati: Scheduled Assistance Treatment Plan/Plan of Care Patient would benefit from OT for education, treatment and training to promote independence in ADL's, mobility, safety and/or upper extremity function for ADL's. Plan of Care: ADL Retraining, Functional Mobility, UE Funct Exercise/Act Treatment Duration: Feb 25, 2020 Frequency: 5 times per week Estimated Hrs Per Day: .25 hour per day Agreement: Yes Rehab Potential: Fair Time/GCodes Start Time: 13:36 Stop Time: 13:56 Total Time Billed (hr/min): 20 Billed Treatment Time 1, ADL (20) JORDAN ALCOCER OTR Feb 19, 2020 14:13
[2020-02-19] MEDS: ENOXAPARIN 100 MG/1 ML (LOVENOX) SYR SC SCH (14:30)
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
--- NOTE | 2020-02-19 14:30 | NUR ---
THIS RN CALLED REPORT TO SIENNA ELAM.
--- NOTE | 2020-02-19 14:45 | Discharge Summary ---
Diagnosis/Chief Complaint Date of Admission Feb 17, 2020 at 17:03 Date of Discharge Discharge Date: Feb 19, 2020 Admission Diagnosis UTI Primary Care No,Local Physician Discharge Diagnosis (1) Urinary tract infection Status: Acute (2) General weakness Status: Acute (3) Atrial fibrillation (4) Hyperlipidemia (5) Essential (primary) hypertension (6) Insulin dependent diabetes mellitus (7) Hypothyroidism (8) Debility Discharge Summary Procedures/Consulations Dr Fuller- Cardiology Discharge Physical Exam Allergies: Coded Allergies: No Known Drug Allergies (Unverified , 02/17/20) Vitals & I&Os Vital Signs Date Time Temp Pulse Resp B/P (MAP) Pulse Ox O2 Delivery O2 Flow Rate FiO2 02/19/20 12:27 65 02/19/20 12:00 36.3 20 149/90 (109) 96 Room Air General Appearance: No Apparent Distress, WD/WN Cardiovascular: Regular Rate, Rhythm, No Murmur Gastrointestinal: Normal Bowel Sounds, Soft Neurologic/Psychiatric: Alert, Oriented x3 Hospital Course Pt is a 79yoCF who a PMH of CAD, a-fib s/p pacemaker, HTN, IDDMI who was admitted due to weakness from a UTI. She had some chest pain and telemetry revealed a fib and wide complex tachycardia. She normally follows with Dr Viramontes and was to have a stress test every year but did not have one in the last 3 years per his report. Stress test was done and revealed left ventricluar hypokinesis and an EF of 32%. Cardiac cath was recommended and she was transferred to [place] [facility] to Dr Viramontes, her primary estimator jewelry, who accepted the patient in transfer per Dr Fuller. Labs (last 24 hrs) Laboratory Tests 02/18/20 15:35: Glucometer 144H 02/18/20 19:55: Glucometer 207H 02/19/20 05:59: Glucometer 95 02/19/20 11:05: Glucometer 86 Microbiology 02/17/20 Blood Culture - Preliminary, Resulted No growth 02/17/20 Urine Culture - Final, Complete Escherichia coli Patient resulted labs reviewed. Pending Labs Laboratory Tests 02/19/20 11:05: Glucometer 86 Discussion & Recommendations Discharge Planning: >30 minutes discharge planning Discharge Home Medications: Active Scripts Active Reported Levemir Flextouch (Insulin Detemir) 100 Unit/1 Ml Insuln.pen 10 Unit SQ HS LAST FILLED 10-10-2019 #5 PENS/150 DAY SUPPLY Novolog Flexpen (Insulin Aspart) 300 Units/3 Ml Solution Units SC TIDAC USES PER SLIDING SCALE Pregabalin 75 Mg Capsule 75 Mg PO TID Ropinirole HCl 0.5 Mg Tablet 1 Mg PO HS TAKES 2 (0.5MG) TABS TO EQUAL 1MG Ondansetron HCl 4 Mg Tablet 4 Mg PO Q6H PRN Levothyroxine Sodium 175 Mcg Tablet 175 Mcg PO DAILY Ambien (Zolpidem Tartrate) 10 Mg Tablet 10 Mg PO HS Meloxicam 15 Mg Tablet 15 Mg PO DAILY PRN Alprazolam 0.5 Mg Tablet 0.5 Mg PO DAILY PRN Formula ( Vit W-Ca,Fe,FA(<1 mg)) 1 Each Tablet 1 Each PO DAILY Lipitor (Atorvastatin Calcium) 40 Mg Tablet 40 Mg PO DAILY LAST FILLED 12-09-2019 #30/30 DAY SUPPLY Flecainide Acetate 100 Mg Tablet 100 Mg PO BID Metoprolol Succinate 25 Mg Tab.er.24h 25 Mg PO DAILY Instructions to patient/family Please see electronic discharge instructions given to patient. Clinical Quality Measures DVT/VTE Risk/Contraindication: Risk Factor Score Per Nursin RFS Level Per Nursing on Admit: 4+=Very High Problem Qualifiers (1) Urinary tract infection: Urinary tract infection type: acute cystitis Hematuria presence: without hematuria Qualified Codes: N30.00 - Acute cystitis without hematuria TERESO HINDS MD Feb 19, 2020 14:45
--- NOTE | 2020-02-19 15:30 | NUR ---
PT LEFT WITH EMS, PAPERWORK GIVEN TO EMS WORKERS. PT LEFT ON [facility].
== END 2020-02-19 15:30 | disposition short-term general hospital (02) ==
LOC: EDUNIT# 16:11 → ER 16:13 → UNDOADMOB 17:03 → 4TH 17:03 → UNDODISOB 02-19 15:30
PROVIDERS: ADMIT Family Medicine; ATTEND Family Medicine
DX: N30.00 Acute cystitis without hematuria (principal); I13.10 Hypertensive heart and chronic kidney disease without heart failure, with stage 1 through stage 4 chronic kidney disease, or unspecified chronic kidney disease; E11.22 Type 2 diabetes mellitus with diabetic chronic kidney disease; N18.9 Chronic kidney disease, unspecified; I25.10 Atherosclerotic heart disease of native coronary artery without angina pectoris; I48.0 Paroxysmal atrial fibrillation; E03.9 Hypothyroidism, unspecified; E78.5 Hyperlipidemia, unspecified; E78.00 Pure hypercholesterolemia, unspecified; I44.1 Atrioventricular block, second degree; I08.2 Rheumatic disorders of both aortic and tricuspid valves; R51 Headache; R53.81 Other malaise; S82.202S Unspecified fracture of shaft of left tibia, sequela; S82.402S Unspecified fracture of shaft of left fibula, sequela; B96.20 Unspecified Escherichia coli [E. coli] as the cause of diseases classified elsewhere; Z79.4 Long term (current) use of insulin; Z79.899 Other long term (current) drug therapy; Z86.19 Personal history of other infectious and parasitic diseases; Z95.0 Presence of cardiac pacemaker
CPT/HCPCS: 51702; 71045; 73620; 78452; 80053 ×2; 80306; 81000; 82962 ×3; 83605; 85025 ×2; 85610; 85730; 87040; 87077; 87088; 87186; 92523; 93005; 93017; 93306; 96361; 96374; 97162; 97530; 97535; 99285; A9502; G0378; 36415

== ENCOUNTER 2020-02-27 20:04 | Inpatient (IN) | payer MEDICARE ==
[~2020-02-27] VITALS: Ht 167 cm; Wt 107.2 kg
[~2020-02-27 20:04] MED LIST changes: +ALPR0.5T7 PO; +INSU100I14 SC; +INSU100I29 SQ; +LEVO175T5 PO; +MELO15TA39 PO; +ONDA-105 PO; +PREG75CA75 PO; +ROPI0.5T4 PO
[2020-02-27] MEDS ORDERED: NS IV 1000 ML 1,000 ML IV SCH (20:21)
--- NOTE | 2020-02-27 20:42 | ED Respiratory ---
General Stated Complaint: MILD SOB,LETHARGY History of Present Illness Date Seen by Provider: Feb 27, 2020 Time Seen by Provider: 20:15 Initial Comments 79 year old female brought from by [facility] for generalized weakness and mild SOA. Denies fevers. SaO2 94% on RA but fluctuates to mid 80%s when talking and has labored breathing. Mid 90%s on O2 per NC at 2 liters. She is poor historian, has port right chest wall but is unsure what it was placed for, she says it has been present for 9 years, for menopause. She lives with her elderly and they have home health but are otherwise home alone and she has severe limitations to care for herself and mobility issues. She denies chest pain, nausea/vomiting/diarrhea or fevers. She reports eating and drinking today. She reports being tested for COVID-19 recently and it was negative. She reports lower abdominal pressure. She has a wet urinary pad. She was hospitalized recently for similar symptoms, then discharged to [facility] to see her coding compliance auditor, after stress test here EF 32%. History of pacemaker and port right chest wall, dialysis in the past. She is Full Code. No facial drooping or specific deficits in extremities. Medications include Sotalol 80mg BID; Plavix 75 mg; Insulin; Requip; Xanax 0.5mg; Synthroid 0.175; Metoprolol 25 mg daily. Spoke to daughter, reports she had 100% blockage of RCA and this was ballooned. Daughter has been concerned about some noted confusion and safety of her parents home at night, alone. They were to see Dr. Monroy March 01. Timing/Duration: this afternoon Prior Episodes/Possible Cause: occasional episodes Modifying Factors: Improves With Oxygen, Improves With Rest Associated Symptoms: No chest pain/soreness, No cough, No fever/chills; shortness of breath Allergies and Home Medications Allergies Coded Allergies: No Known Drug Allergies (Unverified , 02/17/20) Home Medications Alprazolam 0.5 Mg Tablet, 0.5 MG PO DAILY PRN for ANXIETY, (Reported) Atorvastatin Calcium 40 Mg Tablet, 40 MG PO DAILY, (Reported) LAST FILLED 12-09-2019 #30/30 DAY SUPPLY Flecainide Acetate 100 Mg Tablet, 100 MG PO BID, (Reported) Insulin Aspart 300 Units/3 Ml Solution, UNITS SC TIDAC, (Reported) USES PER SLIDING SCALE Insulin Detemir 100 Unit/1 Ml Insuln.pen, 10 UNIT SQ HS, (Reported) LAST FILLED 06-11-2019 #5 PENS/150 DAY SUPPLY Levothyroxine Sodium 175 Mcg Tablet, 175 MCG PO DAILY, (Reported) Meloxicam 15 Mg Tablet, 15 MG PO DAILY PRN for INFLAMMATION, (Reported) Metoprolol Succinate 25 Mg Tab.er.24h, 25 MG PO DAILY, (Reported) Ondansetron HCl 4 Mg Tablet, 4 MG PO Q6H PRN for NAUSEA/VOMITING-1ST LINE, (Reported) Pregabalin 75 Mg Capsule, 75 MG PO TID, (Reported) Vit W-Ca,Fe,FA(<1 mg) 1 Each Tablet, 1 EACH PO DAILY, (Reported) Ropinirole HCl 0.5 Mg Tablet, 1 MG PO HS, (Reported) TAKES 2 (0.5MG) TABS TO EQUAL 1MG Zolpidem Tartrate 10 Mg Tablet, 10 MG PO HS, (Reported) Patient Home Medication List Home Medication List Reviewed: Yes Review of Systems Review of Systems Constitutional: see HPI, malaise, weakness Respiratory: see HPI; No cough; dyspnea on exertion; No phlegm; short of breath; No wheezing Cardiovascular: no symptoms reported, see HPI All Other Systems Reviewed Negative Unless Noted: Yes Past Floqpzq-Vldnwi-Fstrqk Hx Past Med/Social Hx: Reviewed Nursing Past Med/Soc Hx Patient Social History Recent Hopitalizations: Yes (ferreira 1 wk ago for palpitations) Immunizations Up To Date Date of Influenza Vaccine: Aug 06, 2016 Seasonal Allergies Seasonal Allergies: No Past Medical History Surgeries: Yes (left upper arm) Orthopedic, Pacemaker, Tonsillectomy Cardiac: Yes Atrial Fibrillation, High Cholesterol, Hypertension, Irregular Heartbeat Neurological: Yes Musculoskeletal: Yes Fractures Endocrine: Yes Hypothyroidsim, Diabetes, Non-Insulin dep Family Medical History No Pertinent Family Hx Physical Exam Vital Signs - First Documented 02/27/20 20:44 Temp 36.0 Pulse 65 Resp 16 B/P (MAP) 110/73 (85) Pulse Ox 96 O2 Delivery Room Air Capillary Refill : Height: 5'6" Weight: 185lbs. oz. [id number]; 37.15 BMI Method:Estimated General Appearance: mild distress HEENT: PERRL/EOMI, normal ENT inspection, TMs normal, pharynx normal, other (oral mucas pink and markedly dry) Neck: non-tender, full range of motion, supple, normal inspection Respiratory: chest non-tender, lungs clear, normal breath sounds Cardiovascular: normal peripheral pulses, no JVD, irregularly irregular Gastrointestinal: normal bowel sounds, non tender, soft, distended; No guarding, No rebound; other (ecchymosis noted to lower abdomen from recent Lovenox injections) Extremities: no calf tenderness, normal capillary refill, pedal edema (2+, pa tient reports chronic), other (deformity to left lower leg, healed incision to left tibia) Neurologic/Psychiatric: no motor/sensory deficits, alert, normal mood/affect, oriented x 3 (Could state month and year. But poor historian for some questions.) Skin: warm/dry, ecchymosis (to abdomen, patient reports receiving shots in her abdomen), pallor Lymphatic: no adenopathy Focused Exam Lactate Level 02/27/20 20:40: Lactic Acid Level 0.92 Lactic Acid Level Laboratory Tests Test 02/27/20 20:40 Lactic Acid Level 0.92 MMOL/L (0.50-2.00) Progress/Results/Core Measures Suspected Sepsis SIRS Temperature: Pulse: Respiratory Rate: Laboratory Tests 02/27/20 20:40: White Blood Count 11.5H Blood Pressure / Mean: 02/27/20 20:40: Lactic Acid Level 0.92 Laboratory Tests 02/27/20 20:40: Creatinine 1.32H, Platelet Count 207, Total Bilirubin 0.4 Results/Orders Lab Results Laboratory Tests Test 02/27/20 20:40 02/27/20 20:41 02/27/20 20:44 02/27/20 21:38 Range/Units White Blood Count 11.5 H 4.3-11.0 10^3/uL Red Blood Count 3.95 L 4.35-5.85 10^6/uL Hemoglobin 12.3 11.5-16.0 G/DL Hematocrit 38 35-52 % Mean Corpuscular Volume 96 80-99 FL Mean Corpuscular Hemoglobin 31 25-34 PG Mean Corpuscular Hemoglobin Concent 32 32-36 G/DL Red Cell Distribution Width 19.3 H 10.0-14.5 % Platelet Count 207 130-400 10^3/uL Mean Platelet Volume 10.3 7.4-10.4 FL Neutrophils (%) (Auto) 69 42-75 % Lymphocytes (%) (Auto) 19 12-44 % Monocytes (%) (Auto) 10 0-12 % Eosinophils (%) (Auto) 2 0-10 % Basophils (%) (Auto) 1 0-10 % Neutrophils # (Auto) 7.9 H 1.8-7.8 X 10^3 Lymphocytes # (Auto) 2.2 1.0-4.0 X 10^3 Monocytes # (Auto) 1.1 H 0.0-1.0 X 10^3 Eosinophils # (Auto) 0.3 0.0-0.3 10^3/uL Basophils # (Auto) 0.1 0.0-0.1 10^3/uL Erythrocyte Sedimentation Rate 12 0-30 MM/HR Sodium Level 138 135-145 MMOL/L Potassium Level 4.0 3.6-5.0 MMOL/L Chloride Level 97 L 98-107 MMOL/L Carbon Dioxide Level 30 21-32 MMOL/L Anion Gap 11 5-14 MMOL/L Blood Urea Nitrogen 29 H 7-18 MG/DL Creatinine 1.32 H 0.60-1.30 MG/DL Estimat Glomerular Filtration Rate 39 BUN/Creatinine Ratio 22 Glucose Level 205 H 70-105 MG/DL Lactic Acid Level 0.92 0.50-2.00 MMOL/L Calcium Level 8.5 8.5-10.1 MG/DL Corrected Calcium 9.1 8.5-10.1 MG/DL Total Bilirubin 0.4 0.1-1.0 MG/DL Aspartate Amino Transf (AST/SGOT) 21 5-34 U/L Alanine Aminotransferase (ALT/SGPT) 37 0-55 U/L Alkaline Phosphatase 40 40-136 U/L Lactate Dehydrogenase 173 125-220 U/L Troponin I 1.646 *H <0.028 NG/ML C-Reactive Protein High Sensitivity 1.32 H 0.00-0.50 MG/DL B-Type Natriuretic Peptide 1167.7 H <100.0 PG/ML Total Protein 6.8 6.4-8.2 GM/DL Albumin 3.3 3.2-4.5 GM/DL Procalcitonin 0.05 <0.10 NG/ML Glucometer 186 H 70-110 MG/DL Urine Color YELLOW Urine Clarity SL CLOUDY Urine pH 5.5 5-9 Urine Specific [place] 1.015 L 1.016-1.022 Urine Protein NEGATIVE NEGATIVE Urine Glucose (UA) NEGATIVE NEGATIVE Urine Ketones NEGATIVE NEGATIVE Urine Nitrite NEGATIVE NEGATIVE Urine Bilirubin NEGATIVE NEGATIVE Urine Urobilinogen 0.2 < = 1.0 MG/DL Urine Leukocyte Esterase NEGATIVE NEGATIVE Urine RBC (Auto) NEGATIVE NEGATIVE Urine RBC NONE /HPF Urine WBC RARE /HPF Urine Squamous Epithelial Cells RARE /HPF Urine Crystals NONE /LPF Urine Bacteria TRACE /HPF Urine Casts NONE /LPF Urine Mucus SMALL H /LPF Urine Culture Indicated NO Micro Results Microbiology 02/27/20 Influenza Types A,B Antigen (KATHERINE) - Final, Complete My Orders Orders - ARELI REAGAN Cbc With Automated Diff (02/27/20 20:21) Comprehensive Metabolic Panel (02/27/20 20:21) Procalcitonin (Pct) (02/27/20 20:21) Hs C Reactive Protein (02/27/20 20:21) Erythrocyte Sedimentation Rate (02/27/20 20:21) LDH (02/27/20 20:21) Influenza A And B Antigens (02/27/20 20:21) Coronavirus Sars-Cov-2 So 2018 (02/27/20 20:21) Accucheck Stat ONCE (02/27/20 20:21) Ed Iv/Invasive Line Start (02/27/20 20:21) Ns Iv 1000 Ml (Sodium Chloride 0.9%) (02/27/20 20:21) Chest 1 View, Ap/Pa Only (02/27/20 20:21) Troponin I (02/27/20 20:21) BNP (02/27/20 20:21) Ekg Tracing (02/27/20 20:21) Blood Culture (02/27/20 20:58) Lactic Acid Analyzer (02/27/20 20:58) Aspirin Chewable Tablet (Baby Aspirin Ch (02/27/20 21:45) Medications Given in ED Current Medications Medications Dose Ordered Sig/Neeraj Route Start Time Stop Time Status Last Admin Dose Admin Aspirin 324 mg ONCE ONCE PO 02/27/20 21:45 02/27/20 22:35 DC 02/27/20 21:54 324 MG Vital Signs/I&O 02/27/20 02/27/20 20:44 20:53 Temp 36.0 Pulse 65 Resp 16 B/P (MAP) 110/73 (85) Pulse Ox 96 96 O2 Delivery Room Air Room Air Capillary Refill : Progress Note : Time: 20:15 Progress Note Patient seen and evaluated, will obtain labs, EKG, COVID 19 testing due to recent hospitalizations, and monitor. Aspirin 324 mg orally for Chest pain. NS 1 L per IV. 2099 Spoke to daughter and received updated list of medications. [address] Domingo, agreed to consult on patient here. No additional orders at this time. Will repeat troponin. [address] Jones, agreed to accept patient for admission. Xanax 0.5 mg for anxiety. 2229 [place] 5/325 mg for back pain. Awaiting transfer to ICU. ECG Initial ECG Impression Date: Feb 27, 2020 Initial ECG Impression Time: 20:15 Initial ECG Rate: 65 Initial ECG Intervals: Normal Initial ECG Intervals MO 548; QRSD 172; QT 512; QTc 533 [place] P 0; QRS -53; T 27. Ventricular paced rhythm with wide QRS complexes. Initial ECG Impression: 1st Degree AV Block Initial ECG Comparisson: Unchanged Diagnostic Imaging Diagonstic Imaging: Xray Plain Films/CT/US/NM/MRI: chest Comments NAME: PEDRO HERNANDEZ MED REC#: [id number] PT STATUS: REG ER : 1940 PHYSICIAN: ARELI REAGAN ADMIT DATE: 02/27/20/ER Draft Date of Exam:02/27/20 CHEST 1 VIEW, AP/PA ONLY INDICATION: Increasing low back pain, decreased level of consciousness. History of sepsis. TECHNIQUE: Single view chest 8:43 PM. CORRELATION STUDY: 02/17/2020. FINDINGS: Left-sided pacemaker is present. Heart remains enlarged. Vasculature appears slightly increased from prior study. There is patchy infiltrate and/or edema likely along with small effusion at the right lung base. Left lung base is somewhat obscured but suggests small effusion as well. Right-sided Wgfvnj-d-Jfer catheter appears generally stable but is partially obscured by the pacemaker leads. Tip likely terminates at the right atrium. IMPRESSION: Cardiac enlargement with pulmonary vascular congestion and edema. Superimposed edema versus infiltrate with likely effusion at the lung bases. Dictated on workstation # [id number] Dict: 02/27/202051 Trans: 02/27/202101 [facility] [id number] Interpreted by: NATALIE DAMON DO Electronically signed by: Reviewed: Reviewed by Me Departure Impression Primary Impression: Generalized weakness Additional Impressions: Elevated troponin Diabetes Qualified Codes: E11.9 - Type 2 diabetes mellitus without complications; Z79.4 - FPC (current) use of insulin CHF (congestive heart failure) Qualified Codes: I50.9 - Heart failure, unspecified Dyspnea Qualified Codes: R06.02 - Shortness of breath COVID-19 PUI CAD (coronary artery disease) Qualified Codes: I25.10 - Atherosclerotic heart disease of [place] coronary artery without angina pectoris History of cardiac cath Disposition: 01 HOME, SELF-CARE Condition: Improved Admissions Decision to Admit Reason: Admit from ER (General) Decision to Admit/Date: Feb 27, 2020 Time/Decision to Admit Time: 21:30 Departure-Patient Inst. Referrals: NO,LOCAL PHYSICIAN (PCP) Primary Care Physician ARELI REAGAN Feb 27, 2020 20:42
[2020-02-27 20:54] LABS: BASOPHILS # (AUTO) 0.1 10^3/uL (0.0-0.1); BASOPHILS % (AUTO) 1 % (0-10); EOSINOPHILS # (AUTO) 0.3 10^3/uL (0.0-0.3); EOSINOPHILS % (AUTO) 2 % (0-10); HEMATOCRIT 38 % (35-52); HEMOGLOBIN 12.3 G/DL (11.5-16.0); LYMPHOCYTES # (AUTO) 2.2 X 10^3 (1.0-4.0); LYMPHOCYTES % (AUTO) 19 % (12-44); MEAN CORPUSCULAR HEMOGLOBIN 31 PG (25-34); MEAN CORPUSCULAR HGB CONC 32 G/DL (32-36); MEAN CORPUSCULAR VOLUME 96 FL (80-99); MEAN PLATELET VOLUME 10.3 FL (7.4-10.4); MONOCYTES # (AUTO) 1.1 X 10^3 (0.0-1.0); MONOCYTES % (AUTO) 10 % (0-12); NEUTROPHILS # (AUTO) 7.9 X 10^3 (1.8-7.8); NEUTROPHILS % (AUTO) 69 % (42-75); PLATELET COUNT 207 10^3/uL (130-400); RED CELL DISTRIBUTION WIDTH 19.3 % (10.0-14.5); WHITE BLOOD COUNT 11.5 10^3/uL (4.3-11.0)
--- NOTE | 2020-02-27 21:03 | Diagnostic Imaging Report ---
INDICATION: Increasing low back pain, decreased level of consciousness. History of sepsis. TECHNIQUE: Single view chest 8:43 PM. CORRELATION STUDY: 02/17/2020. FINDINGS: Left-sided pacemaker is present. Heart remains enlarged. Vasculature appears slightly increased from prior study. There is patchy infiltrate and/or edema likely along with small effusion at the right lung base. Left lung base is somewhat obscured but suggests small effusion as well. Right-sided Rfyvhi-y-Dxld catheter appears generally stable but is partially obscured by the pacemaker leads. Tip likely terminates at the right atrium. IMPRESSION: Cardiac enlargement with pulmonary vascular congestion and edema. Superimposed edema versus infiltrate with likely effusion at the lung bases. Dictated by: Dictated on workstation # [id number]
[2020-02-27 21:04] LABS: ALBUMIN 3.3 GM/DL (3.2-4.5)
[2020-02-27 21:06] LABS: CALCIUM 8.5 MG/DL (8.5-10.1)
[2020-02-27 21:07] LABS: TOTAL PROTEIN 6.8 GM/DL (6.4-8.2)
[2020-02-27 21:08] LABS: BILIRUBIN,TOTAL 0.4 MG/DL (0.1-1.0)
[2020-02-27 21:10] LABS: CREATININE SERUM 1.32 MG/DL (0.60-1.30)
[2020-02-27 21:14] LABS: ERYTHROCYTE SEDIMENTATION RATE 12 MM/HR (0-30)
[2020-02-27] MEDS ORDERED: ASPIRIN 81 MG CHEW (CHILDREN'S ASA) PO ONE (21:45)
[2020-02-27] MEDS ORDERED: ALPRAZolam 0.5 MG (XANAX) TAB PO STA (22:07)
[2020-02-27 22:36] LABS: BILIRUBIN,URINE NEGATIVE (NEGATIVE); CLARITY,URINE SL CLOUDY; COLOR,URINE YELLOW; GLUCOSE, URINE (UA) NEGATIVE (NEGATIVE); KETONES,URINE NEGATIVE (NEGATIVE); LEUKOCYTE ESTERASE ,URINE NEGATIVE (NEGATIVE); NITRITE,URINE NEGATIVE (NEGATIVE); PH,URINE 5.5 (5-9); PROTEIN,URINE NEGATIVE (NEGATIVE)
[2020-02-27] MEDS ORDERED: HYDROcodone/APAP 5 MG/325 MG (LORTAB) TAB ONE (22:40)
[2020-02-27 22:45] LABS: BACTERIA,URINE TRACE /HPF; SQUAMOUS EPITHELIAL CELL,UR RARE /HPF; WBC,URINE RARE /HPF
[2020-02-27 23:00] VITALS: BP 136/83
[2020-02-27] MEDS ORDERED: HYDROcodone/APAP 5 MG/325 MG (LORTAB) TAB PO ONE (23:00)
[2020-02-27] MEDS: NS IV 1000 ML 1,000 ML IV SCH (23:10)
[2020-02-27 23:15] VITALS: BP 120/34
[2020-02-27 23:30] VITALS: BP 121/74
[2020-02-27 23:45] VITALS: BP 129/58
[2020-02-27] MEDS ORDERED: ACETAMINOPHEN 325 MG TABLET PO PRN (23:45)
[2020-02-27] MEDS ORDERED: ONDANSETRON 4 MG/2 ML (SDV) Z0FRAN IV PRN (23:45)
[2020-02-28] VITALS (14 sets, daily range): BP systolic 97–131; BP diastolic 59–88
[2020-02-28] MEDS: inSUlin ASPART (NovoLOG) 1 UNIT/0.01 ML (CHARGE PER UNIT) SC SCH ×4 (05:35→20:17)
[2020-02-28] MEDS: oxyCODONE/APAP 5/325MG (PERCOCET 5) TABLET PO PRN ×2 (05:36→11:43)
[2020-02-28] MEDS: ALPRAZolam 0.5 MG (XANAX) TAB PO PRN ×2 (05:39→17:40)
[2020-02-28 10:07] LABS: BASOPHILS # (AUTO) 0.1 10^3/uL (0.0-0.1); BASOPHILS % (AUTO) 1 % (0-10); EOSINOPHILS # (AUTO) 0.2 10^3/uL (0.0-0.3); EOSINOPHILS % (AUTO) 2 % (0-10); HEMATOCRIT 39 % (35-52); HEMOGLOBIN 12.4 G/DL (11.5-16.0); LYMPHOCYTES # (AUTO) 2.8 X 10^3 (1.0-4.0); LYMPHOCYTES % (AUTO) 29 % (12-44); MEAN CORPUSCULAR HEMOGLOBIN 31 PG (25-34); MEAN CORPUSCULAR HGB CONC 32 G/DL (32-36); MEAN CORPUSCULAR VOLUME 96 FL (80-99); MEAN PLATELET VOLUME 10.3 FL (7.4-10.4); MONOCYTES # (AUTO) 1.2 X 10^3 (0.0-1.0); MONOCYTES % (AUTO) 12 % (0-12); NEUTROPHILS # (AUTO) 5.4 X 10^3 (1.8-7.8); NEUTROPHILS % (AUTO) 56 % (42-75); PLATELET COUNT 191 10^3/uL (130-400); RED CELL DISTRIBUTION WIDTH 18.8 % (10.0-14.5); WHITE BLOOD COUNT 9.7 10^3/uL (4.3-11.0)
[2020-02-28 10:15] LABS: ALBUMIN 3.2 GM/DL (3.2-4.5)
[2020-02-28 10:16] LABS: POTASSIUM 4.7 MMOL/L (3.6-5.0)
[2020-02-28 10:17] LABS: CALCIUM 8.7 MG/DL (8.5-10.1)
[2020-02-28 10:18] LABS: TOTAL PROTEIN 6.5 GM/DL (6.4-8.2)
[2020-02-28 10:20] LABS: BILIRUBIN,TOTAL 0.6 MG/DL (0.1-1.0)
[2020-02-28 10:22] LABS: CREATININE SERUM 1.08 MG/DL (0.60-1.30)
[2020-02-28] MEDS ORDERED: ASPIRIN E.C. 81 MG (ECOTRIN) TAB PO ONE (11:45)
[2020-02-28] MEDS ORDERED: CLOPIDOGREL 75 MG (PLAVIX) TABLET PO ONE (11:45)
[2020-02-28] MEDS ORDERED: SOTALOL 80 MG (BETAPACE) TAB PO ONE (11:45)
[2020-02-28] MEDS ORDERED: APIXABAN 5 MG (ELIQUIS) TABLET PO ONE (11:45)
[2020-02-28] MEDS ORDERED: LEVOTHYROXINE 150 MCG (LEVOTHROID) TAB PO NR (12:08)
[2020-02-28] MEDS ORDERED: LEVOTHYROXINE 25 MCG (LEVOTHROID) TAB PO SCH (12:10)
--- NOTE | 2020-02-28 12:12 | History & Physical-Hospitalist ---
History of Present Illness HPI/Chief Complaint Roxanna Reynolds is a 79-year-old female with past medical history of hypertension, atrial fibrillation, coronary artery disease, heart failure with reduced ejection fraction, hyperlipidemia, insulin-dependent type II diabetes mellitus, hypothyroidism, obesity, who presented with weakness and shortness of breath. He is a poor historian and her account of the details differs from what she has told others. She tells me that she was having back pain last night. She also does report weakness. She says that she was feeling short of breath. She says that she did have chest pain last night but it is now resolved. She denies any radiation of the pain. She denies any palpitations. She reports nausea and vomiting last night prior to coming to the emergency room. She denies any fevers or chills. She denies any cough. She was recently hospitalized and had a stent placed in one of her coronary arteries. She says that her manager communication, Dr. Molina, so there is other coronary disease but the vessels were too small for any intervention. According to her nurse, she reportedly has home health and they recommended her to pursue hospice care. Source: patient Exam Limitations: no limitations, other (Possible dementia) Date Seen 02/28/20 Time Seen by a Provider: 10:15 Attending Physician Rojas Elliott MD PCP No,Local Physician Referring Physician Date of Admission Feb 27, 2020 at 21:45 Home Medications & Allergies Home Medications Reviewed patient Home Medication Reconciliation performed by pharmacy medication reconciliations automotive glass technician and/or nursing. Patients Allergies have been reviewed. Allergies Allergies Coded Allergies No Known Drug Allergies (Unverified02/17/20) Past Fpsouia-Pgbsod-Klvhlx Hx Past Med/Social Hx: Reviewed Nursing Past Med/Soc Hx Patient Social History Alcohol Use: Denies Use Recreational Drug Use: No Smoking Status: Unknown if Ever Smoked 2nd Hand Smoke Exposure: No (unknown) Recent Foreign Travel: No Contact w/other who traveled: No Recent Hopitalizations: Yes (hanna 1 wk ago for palpitations) Recent Infectious Disease Expo: No Immunizations Up To Date Date of Influenza Vaccine: Aug 06, 2016 Seasonal Allergies Seasonal Allergies: No Past Medical History Surgeries: Orthopedic, Pacemaker, Tonsillectomy Cardiac: Atrial Fibrillation, High Cholesterol, Hypertension, Irregular Heartbeat Musculoskeletal: Fractures Endocrine: Hypothyroidsim, Diabetes, Non-Insulin dep Family History No Pertinent Family Hx Review of Systems Constitutional: weakness EENTM: no symptoms reported Respiratory: short of breath Cardiovascular: chest pain Gastrointestinal: nausea, vomiting Genitourinary: no symptoms reported Musculoskeletal: back pain Skin: no symptoms reported Psychiatric/Neurological: Anxiety Physical Exam Physical Exam Vital Signs Vital Signs - First Documented 02/27/20 02/27/20 20:44 22:27 Temp 36.0 Pulse 65 Resp 16 B/P (MAP) 110/73 (85) Pulse Ox 96 O2 Delivery Room Air O2 Flow Rate 1.00 Capillary Refill : Less Than 3 Seconds Height, Weight, BMI Height: 5'6" Weight: 185lbs. oz. 83.017476zc; 37.11 BMI Method:Estimated General Appearance: No Apparent Distress, Chronically ill, Obese HEENT: PERRL/EOMI, Pharynx Normal Neck: Normal Inspection, Supple Respiratory: Lungs Clear, Normal Breath Sounds, No Respiratory Distress Cardiovascular: Regular Rate, Rhythm, No Murmur Gastrointestinal: Normal Bowel Sounds, Non Tender, Soft Back: Normal Inspection, No Vertebral Tenderness Extremity: Normal Inspection, Non Tender, Pedal Edema Neurologic/Psychiatric: Alert, No Motor/Sensory Deficits, Normal Mood/Affect; No Disoriented Skin: Normal Color, Warm/Dry Results Results/Procedures Labs Laboratory Tests 02/27/20 20:40 02/28/20 09:55 Patient resulted labs reviewed. Imaging: Reviewed Imaging Report Assessment/Plan Admission Diagnosis Debility Admission Status: Observation Assessment and Plan Debility Elevated troponin Coronary artery disease Chronic heart failure with reduced ejection fraction Paroxysmal atrial fibrillation Hypertension Hyperlipidemia Obesity Hypothyroidism Troponin elevated on arrival 1.6, repeat 2 stable Cardiology consulted, appreciate assistance Continue sotalol and Eliquis Continue aspirin and Plavix Continue Lipitor COVID pending UA remarkable Chest x-ray with cardiomegaly and pulmonary congestion Procalcitonin normal Check TSH level PT/OT consulted SW consulted DVT prophylaxis: Already receiving therapeutic anticoagulation Diagnosis/Problems Diagnosis/Problems (1) Debility Status: Acute (2) CAD (coronary artery disease) Status: Acute Qualifiers: Coronary Disease-Associated Artery/Lesion type: [place] artery [place] vs. transplanted heart: [place] heart Associated angina: without angina Qualified Codes: I25.10 - Atherosclerotic heart disease of [place] coronary artery without angina pectoris (3) Elevated troponin Status: Acute (4) CHF (congestive heart failure) Status: Chronic Qualifiers: Heart failure type: systolic Heart failure chronicity: chronic Qualified Codes: I50.22 - Chronic systolic (congestive) heart failure (5) Diabetes Status: Chronic Qualifiers: Diabetes mellitus type: type 2 Diabetes mellitus manager career insulin use: with senior living use Diabetes mellitus complication status: with neurologic complications Diabetes mellitus complication detail: with polyneuropathy Qualified Codes: 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
--- NOTE | 2020-02-28 12:23 | Progress Note ---
Standard Progress Note Progress Notes/Assess & Plan Date Seen by Provider: Feb 28, 2020 Time Seen by Provider: 12:16 Progress/Assessment & Plan Admitted with mild CHF, also Hx of CAD Labs, Vital Signs, I&O Laboratory Tests 02/27/20 20:40: White Blood Count 11.5H, Red Blood Count 3.95L, Hemoglobin 12.3, Hematocrit 38, Mean Corpuscular Volume 96, Mean Corpuscular Hemoglobin 31, Mean Corpuscular Hemoglobin Concent 32, Red Cell Distribution Width 19.3H, Platelet Count 207, Mean Platelet Volume 10.3, Neutrophils (%) (Auto) 69, Lymphocytes (%) (Auto) 19, Monocytes (%) (Auto) 10, Eosinophils (%) (Auto) 2, Basophils (%) (Auto) 1, Neutrophils # (Auto) 7.9H, Lymphocytes # (Auto) 2.2, Monocytes # (Auto) 1.1H, Eosinophils # (Auto) 0.3, Basophils # (Auto) 0.1, Erythrocyte Sedimentation Rate 12, Sodium Level 138, Potassium Level 4.0, Chloride Level 97L, Carbon Dioxide Level 30, Anion Gap 11, Blood Urea Nitrogen 29H, Creatinine 1.32H, Estimat Glomerular Filtration Rate 39, BUN/Creatinine Ratio 22, Glucose Level 205H, Lactic Acid Level 0.92, Calcium Level 8.5, Corrected Calcium 9.1, Total Bilirubin 0.4, Aspartate Amino Transf (AST/SGOT) 21, Alanine Aminotransferase (ALT/SGPT) 37, Alkaline Phosphatase 40, Lactate Dehydrogenase 173, Troponin I 1.646*H, C-Reactive Protein High Sensitivity 1.32H, B-Type Natriuretic Peptide 1167.7H, Total Protein 6.8, Albumin 3.3, Procalcitonin 0.05 02/27/20 20:41: Glucometer 186H 02/27/20 20:44: 02/27/20 21:38: Urine Color YELLOW, Urine Clarity SL CLOUDY, Urine pH 5.5, Urine Specific [place] 1.015L, Urine Protein NEGATIVE, Urine Glucose (UA) NEGATIVE, Urine Ketones NEGATIVE, Urine Nitrite NEGATIVE, Urine Bilirubin NEGATIVE, Urine Urobilinogen 0.2, Urine Leukocyte Esterase NEGATIVE, Urine RBC (Auto) NEGATIVE, Urine RBC NONE, Urine WBC RARE, Urine Squamous Epithelial Cells RARE, Urine Crystals NONE, Urine Bacteria TRACE, Urine Casts NONE, Urine Mucus SMALLH, Urine Culture Indicated NO 02/28/20 00:54: Troponin I 1.622*H 02/28/20 05:26: Glucometer 172H 02/28/20 09:55: Troponin I 1.413*H, White Blood Count 9.7, Red Blood Count 4.03L, Hemoglobin 12.4, Hematocrit 39, Mean Corpuscular Volume 96, Mean Corpuscular Hemoglobin 31, Mean Corpuscular Hemoglobin Concent 32, Red Cell Distribution Width 18.8H, Platelet Count 191, Mean Platelet Volume 10.3, Neutrophils (%) (Auto) 56, Lymphocytes (%) (Auto) 29, Monocytes (%) (Auto) 12, Eosinophils (%) (Auto) 2, Basophils (%) (Auto) 1, Neutrophils # (Auto) 5.4, Lymphocytes # (Auto) 2.8, Monocytes # (Auto) 1.2H, Eosinophils # (Auto) 0.2, Basophils # (Auto) 0.1, Sodium Level 139, Potassium Level 4.7, Chloride Level 99, Carbon Dioxide Level 30, Anion Gap 10, Blood Urea Nitrogen 26H, Creatinine 1.08, Estimat Glomerular Filtration Rate 49, BUN/Creatinine Ratio 24, Glucose Level 153H, Calcium Level 8.7, Corrected Calcium 9.3, Total Bilirubin 0.6, Aspartate Amino Transf (AST/SGOT) 22, Alanine Aminotransferase (ALT/SGPT) 34, Alkaline Phosphatase 38L, Total Protein 6.5, Albumin 3.2 02/28/20 10:55: Glucometer 213H Microbiology 02/27/20 Influenza Types A,B Antigen (KATHERINE) - Final, Complete 02/28/20 02/28/20 02/28/20 02/28/20 00:45 01:00 01:00 02:00 Pulse 64 65 65 64 Resp 31 26 25 B/P (MAP) 129/73 (91) 123/59 (80) 117/71 (86) Pulse Ox 98 98 97 O2 Delivery OxyMask OxyMask OxyMask O2 Flow Rate 3.00 3.00 3.00 02/28/20 02/28/20 02/28/20 02/28/20 03:00 04:10 04:11 05:00 Temp 35.4 Pulse 65 65 64 Resp 25 14 28 B/P (MAP) 111/67 (82) 119/77 (91) 121/78 (92) Pulse Ox 98 98 99 99 O2 Delivery OxyMask OxyMask OxyMask OxyMask O2 Flow Rate 3.00 3.00 3.00 3.00 02/28/20 02/28/20 02/28/20 02/28/20 06:00 07:00 07:00 08:00 Pulse 65 65 65 65 Resp 27 21 24 B/P (MAP) 122/64 (83) 117/59 (78) 121/69 (86) Pulse Ox 98 92 97 O2 Delivery OxyMask OxyMask OxyMask O2 Flow Rate 3.00 3.00 3.00 02/28/20 02/28/20 02/28/20 02/28/20 09:00 09:00 09:00 10:00 Pulse 65 64 Resp 25 25 B/P (MAP) 108/77 (87) Pulse Ox 97 97 97 92 O2 Delivery OxyMask Nasal Cannula Nasal Cannula OxyMask O2 Flow Rate 3.00 1.50 1.50 3.00 02/28/20 12:00 Pulse 65 Resp 19 B/P (MAP) 107/88 (94) Pulse Ox 97 O2 Delivery OxyMask O2 Flow Rate 3.00 02/28/20 00:00 Intake Total 1000 ml Balance 1000 ml Focused Exam Lactate Level 02/27/20 20:40: Lactic Acid Level 0.92 Clinical Quality Measures DVT/VTE Risk/Contraindication: Risk Factor Score Per Nursin RFS Level Per Nursing on Admit: 4+=Very High LESLY JIANG MD Feb 28, 2020 12:23
--- NOTE | 2020-02-28 12:51 | Progress Note ---
Standard Progress Note Progress Notes/Assess & Plan Date Seen by Provider: Feb 28, 2020 Time Seen by Provider: 12:47 Progress/Assessment & Plan 79 F admitted with CHF, not on diuretic, doing well, no SOB, no CP, but has chronic back pain, no coughing wheezing, on lo josias nasal cannula, Feels brething is much better, Lungs have diminished BS according to RN, Heart has paced rhythm, Plan is to keep on meds, await cartoon artist consult, troponin is elevate1/413, was 1.622 Plan is cadiology consult, monitor troponins Pt breathing is much improved, Continue Plavix and ASA Labs, Vital Signs, I&O Laboratory Tests 02/27/20 20:40: White Blood Count 11.5H, Red Blood Count 3.95L, Hemoglobin 12.3, Hematocrit 38, Mean Corpuscular Volume 96, Mean Corpuscular Hemoglobin 31, Mean Corpuscular Hemoglobin Concent 32, Red Cell Distribution Width 19.3H, Platelet Count 207, Mean Platelet Volume 10.3, Neutrophils (%) (Auto) 69, Lymphocytes (%) (Auto) 19, Monocytes (%) (Auto) 10, Eosinophils (%) (Auto) 2, Basophils (%) (Auto) 1, Neutrophils # (Auto) 7.9H, Lymphocytes # (Auto) 2.2, Monocytes # (Auto) 1.1H, Eosinophils # (Auto) 0.3, Basophils # (Auto) 0.1, Erythrocyte Sedimentation Rate 12, Sodium Level 138, Potassium Level 4.0, Chloride Level 97L, Carbon Dioxide Level 30, Anion Gap 11, Blood Urea Nitrogen 29H, Creatinine 1.32H, Estimat Glomerular Filtration Rate 39, BUN/Creatinine Ratio 22, Glucose Level 205H, Lactic Acid Level 0.92, Calcium Level 8.5, Corrected Calcium 9.1, Total Bilirubin 0.4, Aspartate Amino Transf (AST/SGOT) 21, Alanine Aminotransferase (ALT/SGPT) 37, Alkaline Phosphatase 40, Lactate Dehydrogenase 173, Troponin I 1.646*H, C-Reactive Protein High Sensitivity 1.32H, B-Type Natriuretic Peptide 1167.7H, Total Protein 6.8, Albumin 3.3, Procalcitonin 0.05 02/27/20 20:41: Glucometer 186H 02/27/20 20:44: 02/27/20 21:38: Urine Color YELLOW, Urine Clarity SL CLOUDY, Urine pH 5.5, Urine Specific [place] 1.015L, Urine Protein NEGATIVE, Urine Glucose (UA) NEGATIVE, Urine Ketones NEGATIVE, Urine Nitrite NEGATIVE, Urine Bilirubin NEGATIVE, Urine Urobilinogen 0.2, Urine Leukocyte Esterase NEGATIVE, Urine RBC (Auto) NEGATIVE, Urine RBC NONE, Urine WBC RARE, Urine Squamous Epithelial Cells RARE, Urine Crystals NONE, Urine Bacteria TRACE, Urine Casts NONE, Urine Mucus SMALLH, Urine Culture Indicated NO 02/28/20 00:54: Troponin I 1.622*H 02/28/20 05:26: Glucometer 172H 02/28/20 09:55: Troponin I 1.413*H, White Blood Count 9.7, Red Blood Count 4.03L, Hemoglobin 12.4, Hematocrit 39, Mean Corpuscular Volume 96, Mean Corpuscular Hemoglobin 31, Mean Corpuscular Hemoglobin Concent 32, Red Cell Distribution Width 18.8H, Platelet Count 191, Mean Platelet Volume 10.3, Neutrophils (%) (Auto) 56, Lymphocytes (%) (Auto) 29, Monocytes (%) (Auto) 12, Eosinophils (%) (Auto) 2, Basophils (%) (Auto) 1, Neutrophils # (Auto) 5.4, Lymphocytes # (Auto) 2.8, Monocytes # (Auto) 1.2H, Eosinophils # (Auto) 0.2, Basophils # (Auto) 0.1, Sodium Level 139, Potassium Level 4.7, Chloride Level 99, Carbon Dioxide Level 30, Anion Gap 10, Blood Urea Nitrogen 26H, Creatinine 1.08, Estimat Glomerular Filtration Rate 49, BUN/Creatinine Ratio 24, Glucose Level 153H, Calcium Level 8.7, Corrected Calcium 9.3, Total Bilirubin 0.6, Aspartate Amino Transf (AST/SGOT) 22, Alanine Aminotransferase (ALT/SGPT) 34, Alkaline Phosphatase 38L, Total Protein 6.5, Albumin 3.2, Thyroid Stimulating Hormone (TSH) 18.05H 02/28/20 10:55: Glucometer 213H Microbiology 02/27/20 Influenza Types A,B Antigen (KATHERINE) - Final, Complete 02/28/20 02/28/20 02/28/20 02/28/20 01:00 01:00 02:00 03:00 Pulse 65 65 64 65 Resp 26 25 25 B/P (MAP) 123/59 (80) 117/71 (86) 111/67 (82) Pulse Ox 98 97 98 O2 Delivery OxyMask OxyMask OxyMask O2 Flow Rate 3.00 3.00 3.00 02/28/20 02/28/20 02/28/20 02/28/20 04:10 04:11 05:00 06:00 Temp 35.4 Pulse 65 64 65 Resp B/P (MAP) 119/77 (91) 121/78 (92) 122/64 (83) Pulse Ox 98 99 99 98 O2 Delivery OxyMask OxyMask OxyMask OxyMask O2 Flow Rate 3.00 3.00 3.00 3.00 02/28/20 02/28/20 02/28/20 02/28/20 07:00 07:00 08:00 09:00 Pulse 65 65 65 65 Resp B/P (MAP) 117/59 (78) 121/69 (86) 108/77 (87) Pulse Ox 92 97 97 O2 Delivery OxyMask OxyMask OxyMask O2 Flow Rate 3.00 3.00 3.00 02/28/20 02/28/20 02/28/20 02/28/20 09:00 09:00 10:00 12:00 Pulse 64 65 Resp 19 B/P (MAP) 107/88 (94) Pulse Ox 97 97 92 97 O2 Delivery Nasal Cannula Nasal Cannula OxyMask OxyMask O2 Flow Rate 1.50 1.50 3.00 3.00 02/28/20 12:33 Pulse 65 02/28/20 00:00 Intake Total 1000 ml Balance 1000 ml Focused Exam Lactate Level 02/27/20 20:40: Lactic Acid Level 0.92 Clinical Quality Measures DVT/VTE Risk/Contraindication: Risk Factor Score Per Nursin RFS Level Per Nursing on Admit: 4+=Very High LESLY JIANG MD Feb 28, 2020 12:51
[2020-02-28] MEDS: morphine INJ 4 MG/ML 1 ML (VIAL/SYRINGE) IVP PRN ×2 (13:07→18:45)
[2020-02-28] MEDS: NS IV 1000 ML 1,000 ML IV SCH (13:09)
--- NOTE | 2020-02-28 16:36 | Consultation-Cardiology ---
HPI-Cardiology Cardiology Consultation: Date of Consultation 02/28/20 Date of Admission Attending Physician Nellie Jones MD Admitting Physician No,Local Physician Consulting Physician Nancy DOMINGO MD HPI: Time Seen by a Provider: 14:40 Chief Complaint: Chest pain This is a 79-year-old lady who was brought to ER by EMS for weakness and mild shortness of breath. She complains of right chest discomfort. She says that she was hospitalized recently and had a stress test done in our hospital which showed evidence of inducible ischemia and was then transferred to [facility] since her project development coordinator Dr. Viramontes is there. Apparently she had coronary angiography and there was significant disease in RCA and intervention was done. The patient says that the stent was placed however I'm not sure. According to the patient she did receive COVID-19 testing and was negative. We have not received records from [place] yet. She was also noted to have an EF of 32 percent on the stress test. She is had history of a pacemaker and dialysis in the past. She denies any other complaints. She was found to be hypoxic with decreased oxygen saturation when she presented. She denies active smoking. 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 According to the patient she has been on uninterrupted aspirin and Plavix since discharge from [facility]. Family history is not pertinent. Review of Systems-Cardiology Review of Systems Constitutional: As described under HPI; No As described under HPI, No no symptoms reported, No chills, No fever, No lightheadedness Eyes: No As described under HPI, No no symptoms reported, No blindness, No blurred vision, No contact lenses, No drainage, No decreased acuity, No foreign body sensation, No pain, No vision change Ears/Nose/Throat: No As described under HPI, No no symptoms reported, No chronic hearing loss, No ear discharge, No ear pain, No nasal drainage, No ulcerations Respiratory: No no symptoms reported; As described under HPI; No As described under HPI, No cough, No orthopnea, No shortness of breath, No SOB with excertion Cardiovascular: No no symptoms reported; As described under HPI; No As described under HPI; chest pain; No edema, No irregular heart rate, No lightheadedness, No palpitations Gastrointestinal: No no symptoms reported, No As described under HPI, No abdomen distended, No abdominal pain, No blood streaked bowels, No constipation, No diarrhea, No nausea, No vomiting, No stool coloration changes Genitourinary: No As described under HPI, No burning, No dysuria, No discharge, No frequency, No flank pain, No hematuria, No urgency : Yes : No Skin: No rash, No skin related problems, No ulcerations Psychiatric/Neurological: No anxiety, No depression, No seizure, No focal weakness, No syncope Hematologic: No bleeding abnormalities All Other Systems Reviewed Negative Unless Noted: Yes [id number] Hx Patient Social History Alcohol Use: Denies Use Recreational Drug Use: No Smoking Status: Unknown if Ever Smoked 2nd Hand Smoke Exposure: No (unknown) Recent Foreign Travel: No Recent Infectious Disease Expo: No Hospitalization with Isolation: Denies Immunizations Up To Date Date of Influenza Vaccine: Aug 06, 2016 Past Medical History PMH As described under Assessment. Allergies and Home Medications Allergies Coded Allergies: No Known Drug Allergies (Unverified , 02/17/20) Home Medications Alprazolam 0.5 Mg Tablet, 0.5 MG PO DAILY PRN for ANXIETY, (Reported) Atorvastatin Calcium 40 Mg Tablet, 40 MG PO DAILY, (Reported) LAST FILLED 12-09-2019 #30/30 DAY SUPPLY Flecainide Acetate 100 Mg Tablet, 100 MG PO BID, (Reported) Insulin Aspart 300 Units/3 Ml Solution, UNITS SC TIDAC, (Reported) USES PER SLIDING SCALE Insulin Detemir 100 Unit/1 Ml Insuln.pen, 10 UNIT SQ HS, (Reported) LAST FILLED 06-11-2019 #5 PENS/150 DAY SUPPLY Levothyroxine Sodium 175 Mcg Tablet, 175 MCG PO DAILY, (Reported) Meloxicam 15 Mg Tablet, 15 MG PO DAILY PRN for INFLAMMATION, (Reported) Metoprolol Succinate 25 Mg Tab.er.24h, 25 MG PO DAILY, (Reported) Ondansetron HCl 4 Mg Tablet, 4 MG PO Q6H PRN for NAUSEA/VOMITING-1ST LINE, (Reported) Pregabalin 75 Mg Capsule, 75 MG PO TID, (Reported) Vit W-Ca,Fe,FA(<1 mg) 1 Each Tablet, 1 EACH PO DAILY, (Reported) Ropinirole HCl 0.5 Mg Tablet, 1 MG PO HS, (Reported) TAKES 2 (0.5MG) TABS TO EQUAL 1MG Zolpidem Tartrate 10 Mg Tablet, 10 MG PO HS, (Reported) Patient Home Medication List Home Medication List Reviewed: Yes Physical Exam-Cardiology Physical Exam Vital Signs/I&O 02/28/20 02/28/20 02/28/20 02/28/20 05:00 06:00 07:00 07:00 Pulse 64 65 65 65 Resp 28 27 21 B/P (MAP) 121/78 (92) 122/64 (83) 117/59 (78) Pulse Ox 99 98 92 O2 Delivery OxyMask OxyMask OxyMask O2 Flow Rate 3.00 3.00 3.00 02/28/20 02/28/20 02/28/20 02/28/20 08:00 09:00 09:00 09:00 Pulse 65 65 Resp 24 25 B/P (MAP) 121/69 (86) 108/77 (87) Pulse Ox 97 97 97 97 O2 Delivery OxyMask OxyMask Nasal Cannula Nasal Cannula O2 Flow Rate 3.00 3.00 1.50 1.50 02/28/20 02/28/20 02/28/20 02/28/20 10:00 12:00 12:30 12:33 Pulse 64 65 65 Resp 25 19 B/P (MAP) 107/88 (94) Pulse Ox 92 97 97 O2 Delivery OxyMask OxyMask Nasal Cannula O2 Flow Rate 3.00 3.00 1.50 02/28/20 02/28/20 13:08 16:00 Pulse 65 65 Resp 24 B/P (MAP) 124/86 (99) Pulse Ox 97 O2 Delivery OxyMask O2 Flow Rate 3.00 02/28/20 00:00 Intake Total 1000 ml Balance 1000 ml Capillary Refill : Less Than 3 Seconds Constitutional: appears stated age; No apparent distress; well-developed, well- nourished HEENT: PERRL; No discharge; hearing is well preserved, oral hygience is good; No ulceration, No xanthelasmas are seen Neck: No carotid bruit; carotid pulses are 2 + bilaterally Respiratory: chest is bilaterally symmetric; No crackles, No rhonchi; other (de creased breath sounds bilaterally) Cardiovascular: irregularly irregular, S1 and S2; No diastolic murmur, No systolic murmur Gastrointestinal: soft, audible bowel sounds; No spleenomegaly Rectal: deferred Extremities: normal range of motion, non-tender, normal inspection, pedal edema; No clubbing, No cyanosis, No significant edema Neurologic/Psychiatric: no motor/sensory deficits, alert, normal mood/affect, oriented x 3, power is 5/5 both on sides Skin: normal color, warm/dry; No rash, No ulcerations Lymphatic: no adenopathy Data Review Labs Laboratory Tests 02/27/20 20:40: White Blood Count 11.5H, Red Blood Count 3.95L, Hemoglobin 12.3, Hematocrit 38, Mean Corpuscular Volume 96, Mean Corpuscular Hemoglobin 31, Mean Corpuscular Hemoglobin Concent 32, Red Cell Distribution Width 19.3H, Platelet Count 207, Mean Platelet Volume 10.3, Neutrophils (%) (Auto) 69, Lymphocytes (%) (Auto) 19, Monocytes (%) (Auto) 10, Eosinophils (%) (Auto) 2, Basophils (%) (Auto) 1, Neutrophils # (Auto) 7.9H, Lymphocytes # (Auto) 2.2, Monocytes # (Auto) 1.1H, Eosinophils # (Auto) 0.3, Basophils # (Auto) 0.1, Erythrocyte Sedimentation Rate 12, Sodium Level 138, Potassium Level 4.0, Chloride Level 97L, Carbon Dioxide Level 30, Anion Gap 11, Blood Urea Nitrogen 29H, Creatinine 1.32H, Estimat Glomerular Filtration Rate 39, BUN/Creatinine Ratio 22, Glucose Level 205H, Lactic Acid Level 0.92, Calcium Level 8.5, Corrected Calcium 9.1, Total Bilirubin 0.4, Aspartate Amino Transf (AST/SGOT) 21, Alanine Aminotransferase (ALT/SGPT) 37, Alkaline Phosphatase 40, Lactate Dehydrogenase 173, Troponin I 1.646*H, C-Reactive Protein High Sensitivity 1.32H, B-Type Natriuretic Peptide 1167.7H, Total Protein 6.8, Albumin 3.3, Procalcitonin 0.05 02/27/20 20:41: Glucometer 186H 02/27/20 20:44: 02/27/20 21:38: Urine Color YELLOW, Urine Clarity SL CLOUDY, Urine pH 5.5, Urine Specific [place] 1.015L, Urine Protein NEGATIVE, Urine Glucose (UA) NEGATIVE, Urine Ketones NEGATIVE, Urine Nitrite NEGATIVE, Urine Bilirubin NEGATIVE, Urine Urobilinogen 0.2, Urine Leukocyte Esterase NEGATIVE, Urine RBC (Auto) NEGATIVE, Urine RBC NONE, Urine WBC RARE, Urine Squamous Epithelial Cells RARE, Urine Crystals NONE, Urine Bacteria TRACE, Urine Casts NONE, Urine Mucus SMALLH, Urine Culture Indicated NO 02/28/20 00:54: Troponin I 1.622*H 02/28/20 05:26: Glucometer 172H 02/28/20 09:55: Troponin I 1.413*H, White Blood Count 9.7, Red Blood Count 4.03L, Hemoglobin 12.4, Hematocrit 39, Mean Corpuscular Volume 96, Mean Corpuscular Hemoglobin 31, Mean Corpuscular Hemoglobin Concent 32, Red Cell Distribution Width 18.8H, Platelet Count 191, Mean Platelet Volume 10.3, Neutrophils (%) (Auto) 56, Lymphocytes (%) (Auto) 29, Monocytes (%) (Auto) 12, Eosinophils (%) (Auto) 2, Basophils (%) (Auto) 1, Neutrophils # (Auto) 5.4, Lymphocytes # (Auto) 2.8, Monocytes # (Auto) 1.2H, Eosinophils # (Auto) 0.2, Basophils # (Auto) 0.1, Sodium Level 139, Potassium Level 4.7, Chloride Level 99, Carbon Dioxide Level 30, Anion Gap 10, Blood Urea Nitrogen 26H, Creatinine 1.08, Estimat Glomerular Filtration Rate 49, BUN/Creatinine Ratio 24, Glucose Level 153H, Calcium Level 8.7, Corrected Calcium 9.3, Total Bilirubin 0.6, Aspartate Amino Transf (AST/SGOT) 22, Alanine Aminotransferase (ALT/SGPT) 34, Alkaline Phosphatase 38L, Total Protein 6.5, Albumin 3.2, Thyroid Stimulating Hormone (TSH) 18.05H 02/28/20 10:55: Glucometer 213H Microbiology 02/27/20 Influenza Types A,B Antigen (KATHERINE) - Final, Complete 02/27/20 Blood Culture - Preliminary, Resulted No growth ECG Impression ECG Initial ECG Rhythm: Normal Sinus, A Fib/Flutter Initial ECG Impression: Nonspecific Changes A/P-Cardiology Assessment/Admission Diagnosis Non-STEMI, Likely ischemic cardiomyopathy, Mild acute on chronic congestive heart failure, COPD, Diabetes, Acute on chronic kidney disease, Persistent Atrial fibrillation. Plan Non-STEMI, continue aspirin, Plavix. I spoke at length with the patient and due to significantly elevated troponin, I recommended coronary angiography. I explained the procedure at length as well as the risk of complication of 1 percent. She understands the risk but is very hesitant to undergo coronary angiography. We will give her reading material. I did explain to her that coronary angiography and possible intervention is her choice, she needs to understand the risk of recurrent ME and even if she refuses. The other option is to perform a nuclear stress test tomorrow, however if it is abnormal we will still recommend coronary angiography and possible intervention. The patient will think about it and will let the nurse know. Likely ischemic cardiomyopathy, will need to gradually start cardiomyopathy medication. However we will get an echocardiogram once COVID-19 result is back and is negative. Mild acute on chronic congestive heart failure, elevated BNP. IV Lasix. COPD, defer to the primary team. Diabetes, deferred to the primary team. Acute on chronic kidney disease, will watch clinically. Previous history of dialysis as well. Persistent atrial fibrillation. I will discontinue any antiarrhythmic for now. Class IC antiarrhythmics are contraindicated due to CAD. Oral anticoagulation is recommended. Thank you for your consultation. Please call me if you have any questions. Jorge Domingo MD, FACP, FACC, FSCAI, FHRS, CCDS Interventional Cardiology Cardiac Electrophysiology Vascular Medicine and Endovascular Interventions Clinical Quality Measures DVT/VTE Risk/Contraindication: Risk Factor Score Per Nursin RFS Level Per Nursing on Admit: 4+=Very High Nancy DOMINGO MD Feb 28, 2020 16:36
[2020-02-28] MEDS ORDERED: FUROSEMIDE 40 MG/4 ML INJ (LASIX) IVP ONE (17:00)
--- NOTE | 2020-02-28 18:06 | NUR ---
PT BECAME VERY UPSET, PUSHING CALL LIGHT REPEATEDLY DESPITE RN BEING OUTSIDE ROOM. SHE STATED SHE WANTED TO TALK ABOUT HEARTH CATH. THIS RN ANSWERED ALL QUESTIONS SHE HAD AND SHE STATED SHE COULD NOT THINK OF ANY FURTHER QUESTIONS. SHE REFUSED ANY PRINTED MATERIAL. THIS RN GAVE PATIENT A PIECE OF PAPER AND A PEN TO WRITE DOWN ALL CONCERNS TO SPEAK WITH FARM[employer] CRANBERRY REGARDING HEART CATH TOMORROW. PT STILL IS UNDECIDED IF SHE WANTS TO HAVE A HEART CATH TOMORROW AM. ADMINISTERED XANAX PER PATIENT REQUEST.
[2020-02-28] MEDS: PREGABALIN 75 MG (LYRICA) CAP PO SCH (20:15)
[2020-02-28] MEDS: APIXABAN 5 MG (ELIQUIS) TABLET PO SCH (20:16)
[2020-02-28] MEDS: SOTALOL 80 MG (BETAPACE) TAB PO SCH (20:16)
[2020-02-28] MEDS: rOPINIRole 1 MG (REQUIP) TABLET PO SCH (20:16)
[2020-02-28] MEDS: ZOLPIDEM 5 MG (AMBIEN) TAB PO PRN (21:38)
--- NOTE | 2020-02-28 21:49 | NUR ---
INFORMED DR. ELLIOTT THAT PATIENT'S COVID RESULT WAS NEGATIVE. RECEIVED ORDER TO REMOVE ISOLATION.
[2020-02-29] VITALS (7 sets, daily range): BP systolic 94–113; BP diastolic 52–80
[2020-02-29] MEDS: NS IV 1000 ML 1,000 ML IV SCH ×2 (02:25→20:09)
[2020-02-29] MEDS: morphine INJ 4 MG/ML 1 ML (VIAL/SYRINGE) IVP PRN ×3 (03:37→20:46)
[2020-02-29] MEDS: inSUlin ASPART (NovoLOG) 1 UNIT/0.01 ML (CHARGE PER UNIT) SC SCH ×4 (05:57→20:48)
[2020-02-29] MEDS: LEVOTHYROXINE 150 MCG (LEVOTHROID) TAB PO SCH (06:02)
[2020-02-29] MEDS: LEVOTHYROXINE 25 MCG (LEVOTHROID) TAB PO SCH (06:02)
[2020-02-29] MEDS: APIXABAN 5 MG (ELIQUIS) TABLET PO SCH (07:53)
[2020-02-29] MEDS: PREGABALIN 75 MG (LYRICA) CAP PO SCH ×2 (07:54→20:39)
[2020-02-29] MEDS: SOTALOL 80 MG (BETAPACE) TAB PO SCH ×2 (07:54→20:39)
[2020-02-29] MEDS: CLOPIDOGREL 75 MG (PLAVIX) TABLET PO SCH (07:54)
[2020-02-29] MEDS: ASPIRIN E.C. 81 MG (ECOTRIN) TAB PO SCH (07:54)
[2020-02-29] MEDS: ALPRAZolam 0.5 MG (XANAX) TAB PO PRN ×2 (07:54→20:39)
--- NOTE | 2020-02-29 11:30 | Occupational Therapy Eval ---
OT Evaluation-General/PLF Medical Diagnosis Admission Date Feb 28, 2020 at 18:04 Medical Diagnosis: debility Onset Date: Feb 28, 2020 Therapy Diagnosis Therapy Diagnosis: impaired ADLs/functional mobility Height/Weight Height (Feet): 5 Height (Inches): 6 Weight (Pounds): 185 Precautions Precautions/Isolations: Airborne Isolation, Contact Isolation, Fall Prevention Comments Pacemaker precautions, contact isolation for ESBL of urine Referral Physician: Robert Referral Reason: Evaluation/Treatment Medical History Pertinent Medical History: Atrial Fib, DM, HTN, Hypothroidism, Renal Insufficiency Additional Medical History heart failure with reduced ejection fraction, hyperlipidemia, obesity, pacemaker Current History Recently admitted acutely 02/16-02/19/2020 with UTI/debility. She presented with weakness and SOB. COVID-19 testing negative Reviewed History: Yes Social History Home: Single Level Current Living Status: Spouse Entry Into Home: Level Entry ADL-Prior Level of Function SCALE: Activities may be completed with or without assistive devices. 6-Wgxepiqesa-pcvssbw completes the activity by him/herself with no assistance from a helper. 5-Set-up or Clean-up Assistance-helper sets up or cleans up; patient completes activity. Ranger assists only prior to or following the activity. 4-Supervision or Touching Assistance-helper provides verbal cues and/or touching/steadying and/or contact guard assistance as patient completes activity. Assistance may be provided throughout the activity or intermittently. 3-Partial/Moderate Assistance-helper does LESS THAN HALF the effort. Ranger lifts, holds or supports trunk or limbs, but provides less than half the effort. 2-Substantial/Maximal Assistance-helper does MORE THAN HALF the effort. Ranger lifts or holds trunk or limbs and provides more than half the effort. 8-Usgqebxdo-rfsdil does ALL the effort. Patient does none of the effort to complete the activity. Or, the assistance of 2 or more helpers is required for the patient to complete the activity. If activity was not attempted, code reason: 7-Patient Refused. 9-Not Applicable-not attempted and the patient did not perform the activity before the current illness, exacerbation or injury. 10-Not Attempted due to Environmental Limitations-(lack of equipment, weather restraints, etc.). 88-Not Attempted due to Medical Conditions or Safety Concerns. ADL PLOF Comments Pt reports living at home with her . They have assistance 6 hours a day, x7 days a week. She reports being able to dress herself at PLOF but she required assistance with all other ADLs. She reports having assistance with showering, when asked if she is able to perform any part of task she states "yes", it is unclear at this time how much assistance pt requires with showering. She states her caregivers assist with all cooking and cleaning. She has a walkin shower with a shower chair and grab bars. She uses a walker for functional mobility. Self Care: Needed Some Help Functional Cognition: Independent DME/Equipment: Bath Chair, Shower DME/Equipment Comments walker OT Current Status Subjective Pt laying in bed eyes closed, eyes open in response to her name. Pt agreeable to OT evaluation. Pt lethargic throughout session, closing her eyes requiring verbal and tactile cues in order to keep eyes open and participate in tx. Current Glasses/Contacts: Yes Hearing Aids: Yes (lost them) Dentures/Partials: No Hand Dominance: Right Upper Extremity ROM Decreased. OT instructed pt to lift her arms, pt did not initiate movement. Full PROM performed BUEs. Pt did move her hands together and intertwine her fingers, but no active movement with instruction. Upper Extremity Coordination decreased due to no active movement with instruction Upper Extremity Sensation pt reports some tingling/numnbess LUE at elbow level Upper Extremity Strength decreased due to pt not initiating movement. Other Treatments Pt laying in bed, agreeable to OT tx. Pt closed her eyes throughout session, requiring this OT to state her name and give tactile cues to keep eyes open. OT educated pt on purpose and benefits of OT, she verbalized understanding. Pt then provided information about PLOF and home set up, & UE screen complete. OT repeated questions/instructions multiple times before pt answer questions/followed instruction due to pt closing her eyes/lethargic. Pt unable to further participate in OT tx on this date due to pt closing her eyes. Post OT tx, pt laying in bed, call light in reach and all need sme.t Education OT Patient Education: Correct positioning, Energy conservation, Modified ADL techniques, Progress toward Goal/Update tx plan, Purpose of tx/functional activities, Rehab process Teaching Recipient: Patient Teaching Methods: Discussion Response to Teaching: Reinforcement Needed OT [facility] Goals Under Sheriff Goals Time Frame: Mar 11, 2020 Eating (QC): 5 Oral Hygiene (QC): 5 Toileting Hygiene (QC): 3 Shower/Bathe Self (QC): 3 Upper Body Dressing (QC): 3 Lower Body Dressing (QC): 3 On/Off Footwear (QC): 3 1=Demonstrate adherence to instructed precautions during ADL tasks. 2=Patient will verbalize/demonstrate understanding of assistive devices/modifications for ADL. 3=Patient will improve strength/tolerance for activity to enable patient to perform ADL's. OT Education/Plan Problem List/Assessment Assessment: Decreased Activ Tolerance, Decreased UE Strength, Impaired Funct Balance, Impaired I ADL's, Impaired Self-Care Skills, Restricted Funct UE ROM Discharge Recommendations Plan/Recommendations: Continue POC Therapy Discharge Recommendati: Other, See Comments (skilled NH) Treatment Plan/Plan of Care Treatment,Training & Education: Yes Patient would benefit from OT for education, treatment and training to promote independence in ADL's, mobility, safety and/or upper extremity function for ADL's. Plan of Care: ADL Retraining, Functional Mobility, UE Funct Exercise/Act Treatment Duration: Mar 11, 2020 Frequency: 5 times per week Estimated Hrs Per Day: .25 hour per day Agreement: Yes Rehab Potential: Guarded Time/GCodes Start Time: 09:50 Stop Time: 10:00 Total Time Billed (hr/min): 10 Billed Treatment Time 1MODESTO ADDISON OT Feb 29, 2020 11:30
--- NOTE | 2020-02-29 13:04 | Physical Therapy Evaluation ---
PT Evaluation-General Medical Diagnosis Admission Date Feb 28, 2020 at 18:04 Medical Diagnosis: Weakness/SOB Onset Date: Feb 28, 2020 Therapy Diagnosis Therapy Diagnosis: Weakness, debility Height/Weight Height (Feet): 5 Height (Inches): 6 Weight (Pounds): 185 Precautions Precautions/Isolations: Airborne Isolation, Contact Isolation, Fall Prevention Weight Bear Status Right Lower Extremity: Right Weight Bearing/Tolerated Left Lower Extremity: Left Weight Bearing/Tolerated Referral Physician: Robert Medical History Pertinent Medical History: Atrial Fib, DM, HTN, Hypothroidism, Renal Insufficiency Current History Pt arrived at hospital from ED, due to increasing back pain, shortness of breath and chest pain. Reports having home health nursing. Reviewed History: Yes Social History Home: Single Level Current Living Status: Spouse Entry Into Home: Level Entry Prior Prior Level of Function SCALE: Activities may be completed with or without assistive devices. 2-Rshlivdmgr-mfeysyg completes the activity by him/herself with no assistance from a helper. 5-Set-up or Clean-up Assistance-helper sets up or cleans up; patient completes activity. [place] assists only prior to or following the activity. 4-Supervision or Touching Assistance-helper provides verbal cues and/or touching/steadying and/or contact guard assistance as patient completes activity. Assistance may be provided throughout the activity or intermittently. 3-Partial/Moderate Assistance-helper does LESS THAN HALF the effort. [place] lifts, holds or supports trunk or limbs, but provides less than half the effort. 2-Substantial/Maximal Assistance-helper does MORE THAN HALF the effort. [place] lifts or holds trunk or limbs and provides more than half the effort. 2-Cgzxfzksg-mnmcva does ALL the effort. Patient does none of the effort to complete the activity. Or, the assistance of 2 or more helpers is required for the patient to complete the activity. If activity was not attempted, code reason: 7-Patient Refused. 9-Not Applicable-not attempted and the patient did not perform the activity before the current illness, exacerbation or injury. 10-Not Attempted due to Environmental Limitations-(lack of equipment, weather restraints, etc.). 88-Not Attempted due to Medical Conditions or Safety Concerns. Bed Mobility: 4 Transfers (B,C,W/C): 4 Gait: 4 Indoor Mobility (Ambulation): Needed Some Help Prior Devices Use: Walker per patient she has assistance 6 hours a day/ 7 days a week PT Evaluation-Current Subjective Pt presents sitting up in bed upon arrival to room. Pt states she doesnt want to get out of bed at this time, but with encouragement agrees to sit in the chair to eat lunch. Pt reports no pain at this time. Pt/Family Goals return home Objective Patient Orientation: Person, Place, Situation Attachments: Oxygen, Doshi Catheter, IV ROM/Strength ROM Lower Extremities grossly WFL Strength Lower Extremities grossly 3/5 with functional mobility Integumentary/Posture Integumentary refer to nursing notes Bladder Incontinence: Doshi Cath Neuromuscular (Tone, Coordination, Reflexes) normal tone throughout BLE Sensory Vision: Wears Glasses Hand Dominance: Right Transfers Lying to Sitting/Side of Bed(Q: 2 Sit to Stand (QC): 2 Chair/Dkr-to-Emiik Xfer(QC): 2 Pt attempts to walk feet off edge of bed, but requires Max A to achieve seated position at EOB and requires mod A to maintain seated balance. Sit to stand max A to achieve upright position, pt able to initiate movement, requires cueing for hand placement. Once standing, pt posture is kyphotic and she maintains hip flexion throughout standing position, despite cueing for upright posture. Pt able to stand with FWW with max A, anxious with turn to chair. Pt doesnt initiate steps to turn to chair, so pivot transfer used with max A to achieve seated position in recliner. Gait Does the Patient Walk?: No and Walking Goal IS indicated Mode of Locomotion: Both Anticipated Mode of Locomotion: Both Balance Sitting Static: Poor Special Test Comments Pt requires mod A to maintain seated position at EOB, as she continues to fall b ackwards and is unable to correct and achieve upright position without assistance. Assessment/Needs Pt is a 79 year old female who has deficits in strength, activity tolerance, and balance which impact her functional mobility, increasing her fall risk. Pt would benefit from skilled PT to address above mentioned limitations in order to ensure safety upon discharge from hospital. Rehab Potential: Fair PT Short Term Goals Short Term Goals Time Frame: Mar 14, 2020 Lying to sitting on side of be: 3 Sit to stand: 3 Chair/qap-ct-lqkev transfer: 3 Walk 50 feet with two turns: 3 PT Environmental Epidemiologist Goals Penitentiary Goals PT Environmental Epidemiologist Goals Time Frame: Mar 21, 2020 Lying-Sitting on Side/Bed(QC): 4 Sit to Stand (QC): 4 Chair/Ujh-rw-Qdxwu Xfer(QC): 4 Does the Patient Walk: No and Walking Goal IS indicated Walk 50ft with 2 Turns (QC): 4 PT Plan Problem List Problem List: Activity Tolerance, Functional Strength, Safety, Balance, Gait, Transfer, Bed Mobility, ROM Treatment/Plan Treatment Plan: Continue Plan of Care Treatment Plan: Bed Mobility, Education, Functional Activity Jason, Functional Strength, Gait, Safety, Therapeutic Exercise, Transfers Treatment Duration: Mar 21, 2020 Frequency: 6 times per week Estimated Hrs Per Day: .25 hour per day Patient and/or Family Agrees t: Yes .25 up to .5 hours/day Safety Risks/Education Patient Education: Gait Training, Transfer Techniques Teaching Recipient: Patient Teaching Methods: Discussion Response to Teaching: Reinforcement Needed Discharge Recommendations Therapy Discharge Recommendati: Other, See Comments ([facility] facility ) Time/GCodes Time In: 1150 Time Out: 1206 Total Billed Treatment Time: 16 Total Billed Treatment 1 visit 1 Alyssa x 15' DUANE IQBAL PT Feb 29, 2020 13:04
--- NOTE | 2020-02-29 13:23 | Progress Note - Hospitalist ---
Subjective HPI/CC On Admission Date Seen by Provider: Feb 29, 2020 Time Seen by Provider: 10:00 Roxanna Reynolds is a 79-year-old female with past medical history of hypertension, atrial fibrillation, coronary artery disease, heart failure with reduced ejection fraction, hyperlipidemia, insulin-dependent type II diabetes mellitus, hypothyroidism, obesity, who presented with weakness and shortness of breath. He is a poor historian and her account of the details differs from what she has told others. She tells me that she was having back pain last night. She also does report weakness. She says that she was feeling short of breath. She says that she did have chest pain last night but it is now resolved. She denies any radiation of the pain. She denies any palpitations. She reports nausea and vomiting last night prior to coming to the emergency room. She denies any fevers or chills. She denies any cough. She was recently hospitalized and had a stent placed in one of her coronary arteries. She says that her coordinate measuring machine technician, Dr. Molina, so there is other coronary disease but the vessels were too small for any intervention. According to her nurse, she reportedly has home health and they recommended her to pursue hospice care. Subjective/Events-last exam She is complaining of back pain. She denies any fevers or chills. She denies any chest pain or palpitations. She denies any shortness of breath or cough. She denies any abdominal pain, nausea, or vomiting. She has no other complaints or concerns. Focused Exam Lactate Level 02/27/20 20:40: Lactic Acid Level 0.92 Objective Exam Vital Signs Vital Signs Date Time Temp Pulse Resp B/P (MAP) Pulse Ox O2 Delivery O2 Flow Rate FiO2 02/29/20 12:00 35.9 65 22 98/80 (86) 100 Nasal Cannula 2.00 Capillary Refill : Less Than 3 Seconds General Appearance: No Apparent Distress, WD/WN Respiratory: Lungs Clear, Normal Breath Sounds, No Respiratory Distress Cardiovascular: Regular Rate, Rhythm, No Edema, No Murmur Gastrointestinal: Normal Bowel Sounds, Non Tender, Soft Extremity: Normal Inspection, Non Tender, No Pedal Edema Neurologic/Psychiatric: Alert, No Motor/Sensory Deficits, Normal Mood/Affect; No Disoriented Skin: Normal Color, Warm/Dry Results/Procedures Lab Patient resulted labs reviewed. Imaging: Reviewed Imaging Report Assessment/Plan Assessment and Plan Assess & Plan/Chief Complaint Debility Chronic back pain NSTEMI Coronary artery disease Chronic heart failure with reduced ejection fraction Paroxysmal atrial fibrillation Hypertension Hyperlipidemia Obesity Hypothyroidism Poor prognosis Troponin elevated on arrival 1.6, repeat 2 stable Cardiology consulted, appreciate assistance Continue sotalol and Eliquis Continue aspirin and Plavix Continue Lipitor COVID negative TSH 18, Synthroid recently increased PT/OT consulted SW consulted Palliative care consulted DVT prophylaxis: Already receiving therapeutic anticoagulation Diagnosis/Problems Diagnosis/Problems (1) NSTEMI (non-ST elevation myocardial infarction) Status: Acute (2) Debility Status: Acute (3) CAD (coronary artery disease) Status: Acute Qualifiers: Coronary Disease-Associated Artery/Lesion type: knik artery [place] vs. transplanted heart: knik heart Associated angina: without angina Qualified Codes: I25.10 - Atherosclerotic heart disease of knik coronary artery without angina pectoris (4) CHF (congestive heart failure) Status: Chronic Qualifiers: Heart failure type: systolic Heart failure chronicity: chronic Qualified Codes: I50.22 - Chronic systolic (congestive) heart failure (5) Diabetes Status: Chronic Qualifiers: Diabetes mellitus type: type 2 Diabetes mellitus keno terminal operator insulin use: with mcc use Diabetes mellitus complication status: with neurologic complications Diabetes mellitus complication detail: with polyneuropathy Qualified Codes: E11.42 - Type 2 diabetes mellitus with diabetic polyneuropathy; Z79.4 - intermodal owner operator truck driver (current) use of insulin (6) Hypothyroidism Status: Chronic (7) Hyperlipidemia Status: Chronic (8) Essential (primary) hypertension Status: Chronic Clinical Quality Measures DVT/VTE Risk/Contraindication: Risk Factor Score Per Nursin RFS Level Per Nursing on Admit: 4+=Very High ROJAS ELLIOTT MD Feb 29, 2020 13:23
--- NOTE | 2020-02-29 15:08 | NUR ---
I spoke with pts daughter via the phone, daughter advised pts brother had and she was going to tell the pt on the phone, I offered compassionate listening and support. I also advised I would round on pt and check on her and also be available in any way I can. I did check on pt and she was sleeping and resting quietly. I shared this with daughter and advised I would follow up tomorrow.
[2020-02-29] MEDS ORDERED: SOTA80TA62 PO (15:29)
[2020-02-29] MEDS ORDERED: FURO40TA4 PO (15:29)
[2020-02-29] MEDS ORDERED: POTA20TA15 PO (15:29)
[2020-02-29] MEDS ORDERED: CLOP75TA28 PO (15:29)
[2020-02-29] MEDS ORDERED: APIX5TAB PO (15:29)
--- NOTE | 2020-02-29 15:30 | NUR ---
SPOKE WITH THE PT (ALSO CALLED HER ), HAD [facility] FAX THE DISCHARGE ORDERS (SHE WAS DISCHARGED ON 02-22-2020), WENT THRU THE EXT MED HISTORY AND CALLED [facility] TO COMPLETE THE MED REC PT RECENTLY STARTED ON THESE MEDICATIONS FROM [facility]: SOTALOL 80MG (PT WAS ON [id number] BUT WAS DC'D AND SOTALOL TOOK ITS PLACE) FUROSEMIDE 40MG PLAVIX 75MG POTASSIUM 20MEQ ASPIRIN 81MG IS LISTED TO START PER THE [facility] DISCHARGE BUT PT SAYS SHE IS NOT TAKING ELIQUIS 5MG IS A NEW MED AND WAS STARTED ON 02-25-2020 THE DISCHARGE FROM [facility] TALKS ABOUT LOVENOX INJECTIONS- THE PT SAYS SHE TOOK THEM FOR 10DAYS THEN STOPPED AND DOESNT THINK SHE TOOK THEM AFTER HER LAST DISCHARGE. THE LAST TIME [facility] DISPENSED THEM WAS 01-14-2020. OTC MEDS: VITAMIN THERE DISCHARGE ORDERS ARE ON THE PATIENT'S CHART- HOWEVER THE CONTINUED MEDICATIONS ON PAGE 1 DO NOT SEEM TO BE ACCURATE.
[2020-02-29] MEDS ORDERED: MTP25TSR PO (15:38)
--- NOTE | 2020-02-29 15:57 | NUR ---
CM/SS social service consult. CM/SS spoke with the patients daughter Pat ([phone]) via phone while she was driving to the hospital. She states that she is wanting to talk with her mom about hospice due to some of her comments regarding procedures and treatments. CM/SS informed Pat that this ss and palliative RN Mukesh would come speak with her if she would like. She stated she would call this ss and let us know. The patients daughter contacted this ss to inform that the patients brother just recently passed and she was going to tell the patient. She requested to have a [place] present for the patient. CM/SS contacted Alon Manning who will call Pat to set up a time. CM/SS contacted Shima Reed from past visit and DCF report. She states that she has not contacted the daughter in regards to the misuse of pain medications. CM/SS informed Shima that this ss will notify her when and where patient will discharge. CM/SS will continue to follow discharge planing.
--- NOTE | 2020-02-29 17:31 | Cardiology Progress Note ---
Cardiology SOAP Progress Note Subjective: No further chest pain. Objective: I&O/Vital Signs 02/29/20 02/29/20 02/29/20 02/29/20 06:34 07:58 08:00 09:00 Temp 36.5 Pulse 65 64 Resp 15 B/P (MAP) 108/70 (83) Pulse Ox 98 97 94 O2 Delivery Nasal Cannula Nasal Cannula Room Air O2 Flow Rate 2.00 2.00 2.00 02/29/20 02/29/20 02/29/20 02/29/20 10:59 12:00 12:00 13:25 Temp 35.9 Pulse 65 56 Resp 22 B/P (MAP) 98/80 (86) Pulse Ox 100 97 O2 Delivery Nasal Cannula Nasal Cannula Nasal Cannula O2 Flow Rate 2.00 2.00 2.00 02/29/20 15:45 Temp 36.2 Pulse 60 Resp 18 B/P (MAP) 94/61 (72) Pulse Ox 100 O2 Delivery Nasal Cannula O2 Flow Rate 2.00 02/29/20 00:00 Intake Total 1200 ml Output Total 750 ml Balance 450 ml Weight (Pounds): 185 Weight (Calculated Kilograms): 83.664696 Constitutional: appears stated age; No apparent distress; well-developed, well- nourished Respiratory: chest is bilaterally symmetric; No crackles, No rhonchi; other (decreased breath sounds bilaterally) Cardiovascular: irregularly irregular, S1 and S2; No diastolic murmur, No systolic murmur Gastrointestional: soft, audible bowel sounds; No spleenomegaly Extremities: normal range of motion, non-tender, normal inspection, pedal edema; No clubbing, No cyanosis, No significant edema Neurologic/Psychiatric: no motor/sensory deficits, alert, normal mood/affect, oriented x 3, power is 5/5 both on sides Skin: normal color, warm/dry; No rash, No ulcerations Results/Procedures: Labs Laboratory Tests 02/28/20 20:14: Glucometer 194H 02/29/20 05:57: Glucometer 176H 02/29/20 10:43: Glucometer 204H 02/29/20 15:19: Glucometer 148H Microbiology 02/27/20 Influenza Types A,B Antigen (KATHERINE) - Final, Complete 02/27/20 Blood Culture - Preliminary, Resulted No growth A/P: Assessment/Dx: Non-STEMI, Likely ischemic cardiomyopathy, Mild acute on chronic congestive heart failure, COPD, Diabetes, Acute on chronic kidney disease, Persistent Atrial fibrillation. Plan: Non-STEMI, continue aspirin, Plavix. I spoke at length with the patient and due to significantly elevated troponin, I recommended coronary angiography. I explained the procedure at length as well as the risk of complication of 1 percent. She understands the risk but is very hesitant to undergo coronary angiography. We will give her reading material. I did explain to her that coronary angiography and possible intervention is her choice, she needs to understand the risk of recurrent SD and even if she refuses. The patient and her family are now willing to perform coronary angiography and understand the risk with coronary angiography and PCI. We will arrange for tomorrow. Likely ischemic cardiomyopathy, will need to gradually start cardiomyopathy medication. Echocardiogram. Mild acute on chronic congestive heart failure, elevated BNP. IV Lasix. COPD, defer to the primary team. Diabetes, deferred to the primary team. Acute on chronic kidney disease, will watch clinically. Previous history of dialysis as well. Persistent atrial fibrillation. I will discontinue any antiarrhythmic for now. Class IC antiarrhythmics are contraindicated due to CAD. Oral anticoagulation is recommended. Thank you for your consultation. Please call me if you have any questions. Jorge Domingo MD, FACP, FACC, FSCAI, FHRS, CCDS Interventional Cardiology Cardiac Electrophysiology Vascular Medicine and Endovascular Interventions Focused Exam Lactate Level 02/27/20 20:40: Lactic Acid Level 0.92 Nancy DOMINGO MD Feb 29, 2020 17:31
--- NOTE | 2020-02-29 18:54 | NUR ---
elidonald on hold until after heart cath in the am per dr brewer.
[2020-02-29] MEDS: rOPINIRole 1 MG (REQUIP) TABLET PO SCH (20:39)
[2020-03-01] VITALS (11 sets, daily range): BP systolic 87–113; BP diastolic 48–69
[2020-03-01] MEDS: inSUlin ASPART (NovoLOG) 1 UNIT/0.01 ML (CHARGE PER UNIT) SC SCH ×4 (05:38→20:34)
[2020-03-01] MEDS: LEVOTHYROXINE 150 MCG (LEVOTHROID) TAB PO SCH (05:51)
[2020-03-01] MEDS: LEVOTHYROXINE 25 MCG (LEVOTHROID) TAB PO SCH (05:51)
--- NOTE | 2020-03-01 09:02 | Progress Note - Hospitalist ---
Subjective HPI/CC On Admission Date Seen by Provider: Mar 01, 2020 Time Seen by Provider: 08:57 Roxanna Reynolds is a 79-year-old female with past medical history of hypertension, atrial fibrillation, coronary artery disease, heart failure with reduced ejection fraction, hyperlipidemia, insulin-dependent type II diabetes mellitus, hypothyroidism, obesity, who presented with weakness and shortness of breath. He is a poor historian and her account of the details differs from what she has told others. She tells me that she was having back pain last night. She also does report weakness. She says that she was feeling short of breath. She says that she did have chest pain last night but it is now resolved. She denies any radiation of the pain. She denies any palpitations. She reports nausea and vomiting last night prior to coming to the emergency room. She denies any fevers or chills. She denies any cough. She was recently hospitalized and had a stent placed in one of her coronary arteries. She says that her senior mainframe developer, Dr. Molina, so there is other coronary disease but the vessels were too small for any intervention. According to her nurse, she reportedly has home health and they recommended her to pursue hospice care. Subjective/Events-last exam Pt reports feeling ok today. Plan is for heart cath today with Dr Domingo. Focused Exam Lactate Level 02/27/20 20:40: Lactic Acid Level 0.92 Objective Exam Vital Signs Vital Signs Date Time Temp Pulse Resp B/P (MAP) Pulse Ox O2 Delivery O2 Flow Rate FiO2 03/01/20 08:00 36.2 65 17 94/62 (73) 98 Nasal Cannula 2.50 Capillary Refill : Less Than 3 Seconds General Appearance: No Apparent Distress, Chronically ill, Obese Respiratory: Lungs Clear, No Respiratory Distress Cardiovascular: Regular Rate, Rhythm, No Murmur Neurologic/Psychiatric: Alert, Oriented x3 Results/Procedures Lab Patient resulted labs reviewed. Imaging: Reviewed Imaging Report Assessment/Plan Assessment and Plan Assess & Plan/Chief Complaint Debility Chronic back pain NSTEMI Coronary artery disease Chronic heart failure with reduced ejection fraction Paroxysmal atrial fibrillation Hypertension Hyperlipidemia Obesity Hypothyroidism Poor prognosis Troponin elevated on arrival 1.6, repeat 2 stable Cardiology consulted, appreciate assistance - Plan for cardiac cath Continue sotalol and Eliquis Continue aspirin and Plavix Continue Lipitor COVID negative TSH 18, Synthroid recently increased- will need outpatient follow up PT/OT consulted SW consulted Palliative care consulted DVT prophylaxis: Already receiving therapeutic anticoagulation Clinical Quality Measures DVT/VTE Risk/Contraindication: Risk Factor Score Per Nursin RFS Level Per Nursing on Admit: 4+=Very High TERESO HINDS MD Mar 01, 2020 09:02
--- NOTE | 2020-03-01 09:16 | Cardiology Progress Note ---
Cardiology SOAP Progress Note Subjective: No further chest pain. Objective: I&O/Vital Signs 03/01/20 03/01/20 03/01/20 03/01/20 01:00 04:00 04:00 06:38 Temp 36.1 Pulse 65 65 65 Resp 16 B/P (MAP) 100/66 (77) Pulse Ox 94 O2 Delivery Nasal Cannula Nasal Cannula O2 Flow Rate 2.50 2.00 03/01/20 03/01/20 03/01/20 03/01/20 08:00 09:22 11:50 12:00 Temp 36.2 36.2 Pulse 65 65 62 Resp 17 20 B/P (MAP) 94/62 (73) 113/62 (79) Pulse Ox 98 100 O2 Delivery Nasal Cannula Nasal Cannula Nasal Cannula O2 Flow Rate 2.50 2.50 2.50 03/01/20 00:00 Intake Total 750 ml Output Total 375 ml Balance 375 ml Weight (Pounds): 185 Weight (Calculated Kilograms): 83.466861 Constitutional: appears stated age; No apparent distress; well-developed, well- nourished Respiratory: chest is bilaterally symmetric; No crackles, No rhonchi; other (decreased breath sounds bilaterally) Cardiovascular: irregularly irregular, S1 and S2; No diastolic murmur, No systolic murmur Gastrointestional: soft, audible bowel sounds; No spleenomegaly Extremities: normal range of motion, non-tender, normal inspection, pedal edema; No clubbing, No cyanosis, No significant edema Neurologic/Psychiatric: no motor/sensory deficits, alert, normal mood/affect, oriented x 3, power is 5/5 both on sides Skin: normal color, warm/dry; No rash, No ulcerations Results/Procedures: Labs Laboratory Tests 02/29/20 15:19: Glucometer 148H 02/29/20 20:36: Glucometer 159H 03/01/20 05:35: Glucometer 153H 03/01/20 10:48: Glucometer 105 Microbiology 02/27/20 Influenza Types A,B Antigen (KATHERINE) - Final, Complete 02/27/20 Blood Culture - Preliminary, Resulted No growth A/P: Assessment/Dx: Non-STEMI, Likely ischemic cardiomyopathy, Mild acute on chronic congestive heart failure, COPD, Diabetes, Acute on chronic kidney disease, Persistent Atrial fibrillation. Plan: Non-STEMI, continue aspirin, Plavix. I spoke at length with the patient and due to significantly elevated troponin, I recommended coronary angiography. I explained the procedure at length as well as the risk of complication of 1 percent. She understands the risk but is very hesitant to undergo coronary angiography. We will give her reading material. I did explain to her that coronary angiography and possible intervention is her choice, she needs to understand the risk of recurrent AL and even if she refuses. The patient and her family are now willing to perform coronary angiography and understand the risk with coronary angiography and PCI. Coronary angiography today. Likely ischemic cardiomyopathy, will need to gradually start cardiomyopathy medication. Echocardiogram showed borderline LV function with an EF of 50-55 percent. Moderate mitral regurgitation, moderate to severe tricuspid regurgitation. No significant valvular heart disease. Mild acute on chronic congestive heart failure, elevated BNP. IV Lasix. COPD, defer to the primary team. Diabetes, deferred to the primary team. Acute on chronic kidney disease, will watch clinically. Previous history of dialysis as well. Persistent atrial fibrillation. I will discontinue any antiarrhythmic for now. Class IC antiarrhythmics are contraindicated due to CAD. Oral anticoagulation is recommended. Thank you for your consultation. Please call me if you have any questions. Jorge Domingo MD, FACP, FACC, FSCAI, FHRS, CCDS Interventional Cardiology Cardiac Electrophysiology Vascular Medicine and Endovascular Interventions Focused Exam Lactate Level 02/27/20 20:40: Lactic Acid Level 0.92 Nancy DOMINGO MD Mar 01, 2020 09:16
[2020-03-01] MEDS: ASPIRIN E.C. 81 MG (ECOTRIN) TAB PO SCH (09:21)
[2020-03-01] MEDS: CLOPIDOGREL 75 MG (PLAVIX) TABLET PO SCH (09:21)
[2020-03-01] MEDS: SOTALOL 80 MG (BETAPACE) TAB PO SCH ×2 (09:22→20:34)
[2020-03-01] MEDS: PREGABALIN 75 MG (LYRICA) CAP PO SCH ×2 (09:22→20:34)
--- NOTE | 2020-03-01 09:58 | Physical Therapy Daily Note ---
PT Daily Note-Current Subjective Pt presents supine in bed upon arrival to room, agreeable to therapy at this time. Pt has no complaints of pain this visit. Appearance Following treatment, pt in recliner chair with LEs elevated, with call light and phone within reach, no further needs at this time. Mental Status Attachments: Oxygen, Doshi Catheter Transfers SCALE: Activities may be completed with or without assistive devices. 2-Wyvfjiwgnp-nqumlmk completes the activity by him/herself with no assistance from a helper. 5-Set-up or Clean-up Assistance-helper sets up or cleans up; patient completes activity. [place] assists only prior to or following the activity. 4-Supervision or Touching Assistance-helper provides verbal cues and/or touching/steadying and/or contact guard assistance as patient completes activity. Assistance may be provided throughout the activity or intermittently. 3-Partial/Moderate Assistance-helper does LESS THAN HALF the effort. [place] lifts, holds or supports trunk or limbs, but provides less than half the effort. 2-Substantial/Maximal Assistance-helper does MORE THAN HALF the effort. [place] lifts or holds trunk or limbs and provides more than half the effort. 2-Lnvcoxjyv-ormzqm does ALL the effort. Patient does none of the effort to complete the activity. Or, the assistance of 2 or more helpers is required for the patient to complete the activity. If activity was not attempted, code reason: 7-Patient Refused. 9-Not Applicable-not attempted and the patient did not perform the activity before the current illness, exacerbation or injury. 10-Not Attempted due to Environmental Limitations-(lack of equipment, weather restraints, etc.). 88-Not Attempted due to Medical Conditions or Safety Concerns. Roll Left & Right (QC): 2 Lying to Sitting/Side of Bed(Q: 2 Sit to Stand (QC): 2 Chair/Tls-cj-Rsddg Xfer(QC): 2 Pt able to initiate supine to sit, but requires mod A to achieve seated position at EOB. When at EOB, pt requires assistance to maintain sitting balance, but noted when feet are on the floor they pt seated balance improves. Pt requires max A to achieve standing position, with FWW, and is unable to initiate steps towards the chair this visit, pivot transfer preformed to get pt into chair. Weight Bearing Right Lower Extremity: Right Weight Bearing/Tolerated Left Lower Extremity: Left Weight Bearing/Tolerated Treatments Pt transferred from bed to recliner chair this visit. Assessment Current Status: Fair Progress Pt continues to require skilled PT to address decreased strength, balance, and activity tolerance which decrease her overall functional mobility. Pt is unsafe to return home at this time, as she is at an increased fall risk. Will continue to progress treatment as able. PT Short Term Goals Short Term Goals Time Frame: Mar 14, 2020 Lying to sitting on side of be: 3 Sit to stand: 3 Chair/rbd-wb-yhypn transfer: 3 Walk 50 feet with two turns: 3 PT Half-Way Goals Pay Station Collector Goals PT Half-Way Goals Time Frame: Mar 21, 2020 Lying-Sitting on Side/Bed(QC): 4 Sit to Stand (QC): 4 Chair/Oja-gf-Smkfa Xfer(QC): 4 Does the Patient Walk: No and Walking Goal IS indicated Walk 50ft with 2 Turns (QC): 4 PT Plan Problem List Problem List: Activity Tolerance, Functional Strength, Safety, Balance, Gait, Transfer, Bed Mobility Treatment/Plan Treatment Plan: Continue Plan of Care Treatment Plan: Bed Mobility, Education, Functional Activity Jason, Functional Strength, Gait, Safety, Therapeutic Exercise, Transfers Treatment Duration: Mar 21, 2020 Frequency: 6 times per week Estimated Hrs Per Day: .25 hour per day Patient and/or Family Agrees t: Yes Safety Risks/Education Patient Education: Gait Training, Transfer Techniques Teaching Recipient: Patient Teaching Methods: Discussion Response to Teaching: Reinforcement Needed Time/GCodes Time In: 920 Time Out: 935 Total Billed Treatment 1 visit 1 FA x 15 min DUANE IQBAL PT Mar 01, 2020 09:58
--- NOTE | 2020-03-01 11:00 | NUR ---
Pastoral care visit with pt, pt was awaiting cardiac cath technician. Pt was pleasant, and in no distress, I had prayer with pt.
--- NOTE | 2020-03-01 11:02 | Occupational Ther Daily Note ---
OT Current Status-Daily Note Subjective Pt seated in recliner, stating she feels like she needs to have a BM, she does not verbalize any pain during tx. Mental Status/Objective Attachments: Doshi Catheter, Oxygen ADL-Treatment Therapy Code Descriptions/Definitions Functional [place] Measure: 0=Not Assessed/NA 4=Minimal Assistance 1=Total Assistance 5=Supervision or Setup 2=Maximal Assistance 6=Modified [place] 3=Moderate Assistance 7=Complete IndependenceSCALE: Activities may be completed with or without assistive devices. 6-Itulljpvoc-unksfuy completes the activity by him/herself with no assistance from a helper. 5-Set-up or Clean-up Assistance-helper sets up or cleans up; patient completes activity. [place] assists only prior to or following the activity. 4-Supervision or Touching Assistance-helper provides verbal cues and/or touching/steadying and/or contact guard assistance as patient completes activity. Assistance may be provided throughout the activity or intermittently. 3-Partial/Moderate Assistance-helper does LESS THAN HALF the effort. [place] lifts, holds or supports trunk or limbs, but provides less than half the effort. 2-Substantial/Maximal Assistance-helper does MORE THAN HALF the effort. [place] lifts or holds trunk or limbs and provides more than half the effort. 7-Qmhkmkokr-pwyqmj does ALL the effort. Patient does none of the effort to complete the activity. Or, the assistance of 2 or more helpers is required for the patient to complete the activity. If activity was not attempted, code reason: 7-Patient Refused. 9-Not Applicable-not attempted and the patient did not perform the activity before the current illness, exacerbation or injury. 10-Not Attempted due to Environmental Limitations-(lack of equipment, weather restraints, etc.). 88-Not Attempted due to Medical Conditions or Safety Concerns. Toileting Hygiene (QC): 1 (x2 person assist, 1 for standing balance and 1 for hygiene. Pt states she is unable to complete hygiene herself.) Toilet Transfer (QC): 1 (x2 person assist to BSC ) Other Treatment Pt seated in recliner, agreeable to OT tx. Pt reports feeling like she needs to have a BM. Aide present, assist x2 to transfer recliner to BSC stand pivot transfer. Pt attempted to have BM but unsuccessful. Assist x2 for hygiene, then x2 assist transfer BSC to recliner, stand pivot transfer. Post OT tx, pt seated in recliner, call light in reach and all needs met. Education OT Patient Education: Correct positioning, Energy conservation, Modified ADL techniques, Progress toward Goal/Update tx plan, Purpose of tx/functional activities, Safety issues, Transfer techniques Teaching Recipient: Patient Teaching Methods: Discussion Response to Teaching: Verbalize Understanding OT Detention Goals Economist Research Assistant Goals Time Frame: Mar 11, 2020 Eating (QC): 5 Oral Hygiene (QC): 5 Toileting Hygiene (QC): 3 Shower/Bathe Self (QC): 3 Upper Body Dressing (QC): 3 Lower Body Dressing (QC): 3 On/Off Footwear (QC): 3 1=Demonstrate adherence to instructed precautions during ADL tasks. 2=Patient will verbalize/demonstrate understanding of assistive devices/modifications for ADL. 3=Patient will improve strength/tolerance for activity to enable patient to perform ADL's. OT Education/Plan Problem List/Assessment Assessment: Decreased Activ Tolerance, Decreased UE Strength, Dependent Transfers Discharge Recommendations Plan/Recommendations: Continue POC Treatment Plan/Plan of Care Patient would benefit from OT for education, treatment and training to promote independence in ADL's, mobility, safety and/or upper extremity function for ADL's. Plan of Care: ADL Retraining, Functional Mobility, UE Funct Exercise/Act Treatment Duration: Mar 11, 2020 Frequency: 5 times per week Estimated Hrs Per Day: .25 hour per day Agreement: Yes Rehab Potential: Fair Time/GCodes Start Time: 10:05 Stop Time: 10:23 Total Time Billed (hr/min): 18 Billed Treatment Time 1, ADL ELLY CAMOP OT Mar 01, 2020 11:02
[2020-03-01] MEDS ORDERED: HEParin (CATH LAB) 2,000 ML IV ONE (11:31)
[2020-03-01] MEDS ORDERED: LIDOCAINE 1% INJ 20 ML 20 ML VIAL ONE (11:31)
[2020-03-01] MEDS ORDERED: HEParin 1000 UNIT/ML (10ML VIAL) FOR BOLUS ONE (11:35)
[2020-03-01] MEDS ORDERED: fentaNYL INJECTION 100 MCG/2 ML AMP ONE (11:35)
[2020-03-01] MEDS ORDERED: MIDAZOLAM 5 MG/5 ML (VERSED) VIAL ONE (11:35)
[2020-03-01] MEDS ORDERED: NS IV 1000 ML 1,000 ML ONE (11:53)
--- NOTE | 2020-03-01 12:34 | Cardiac Procedure Note-CS/ASA ---
Pre-Procedure Note Pre-Op Procedure Note H&P Reviewed The H&P was reviewed, patient examined and no changes noted. Date H&P Reviewed: Mar 01, 2020 Time H&P Reviewed: 09:00 Conscious Sedation Pre-Proced Time 09:00 ASA Score 3 For ASA 3 and 4: Consider anesthesia and medical clearance. Also, for patients with a history of failed moderate sedation consider anesthesia. Airway Lungs Heart ASA score ASA 1: a normal healthy patient ASA 2: a patient with a mild systemic disease (mid diabetes, controlled hypertension, obesity ASA 3: a patient with a severe systemic disease that limits activity (angina, COPD, prior Myocardial infarction) ASA 4: a patient with an incapacitating disease that is a constant threat to life (CHF, renal failure) ASA 5: a moribund patient not expected to survive 24 hrs. (ruptured aneurysm) ASA 6: a declared brain- patient whose organs are being harvested. For emergent operations, add the letter E after the classification Mallampati Classification Grade 1 Sedation Plan Analgesia, Amnesia, Plan communicated to team members, Discussed options with patient/fam, Discussed risks with patient/fam The patient is an appropriate candidate to undergo the planned procedure, sedation, and anesthesia. The patient immediately re-assessed prior to indication. Nancy ISAAC MD Mar 01, 2020 12:34
--- NOTE | 2020-03-01 12:39 | Coronary Angiography Report ---
Coronary Angiography Report DATE OF PROCEDURE: 03/01/20 INDICATION: Non-STEMI. PREOPERATIVE DIAGNOSIS: Non-STEMI. POSTOPERATIVE DIAGNOSIS: Mild CAD. HISTORY: This is a 79-year-old lady with history of atrial fibrillation. Presents with chest pain and positive troponins. Therefore, the patient was scheduled for coronary angiography. PROCEDURES PERFORMED: 1.Coronary angiography. 2.Left heart catheterization. 3. Aortic arch angiogram: Medical necessity: To rule out aneurysm/dissection in a patient with mild CAD and presentation of chest pain and positive troponins. COMPLICATIONS: None. SPECIMENS: None. ESTIMATED BLOOD LOSS: 10 mL ANESTHESIA: Conscious sedation ANTICOAGULATION: None. CONTRAST: 54 mL. FLUOROSCOPY: 2.1 minutes. FLOUROSCOPY DOSE: 244 mgy. PROCEDURE DETAILS: The patient is a 79 female and was brought to the label sewer after informed consent was taken. All the risks and complications were explained in detail; this included the risk of bleeding, vascular damage, stroke, OK and even . The patient was draped and prepped in the usual sterile fashion. Andres's test was abnormal, therefore Access was gained in the right femoral artery with a 6 [place] sheath. Coronary angiography and left heart catheteri zation was performed with the JR4 and JL4 catheter. Aortic arch angiogram was performed with a pigtail catheter. FINDINGS: 1.Left main: Patent. 2.LAD: Mild proximal CAD. Mild calcification noted. 3.Left circumflex artery: Mild proximal CAD. Mild calcification noted. 4.RCA: Patent with no significant disease noted. 5.Left heart catheterization: LV pressure 102/3 mmHg. LVEDP 10 mmHg. Aortic pressure 112/50 mmHg. Normal LV function with no wall motion abnormalities. No gradient across the aortic valve. 6. Aortic arch angiogram: No evidence of aortic dissection or aneurysm. Patent proximal segments of the great arteries. CONCLUSIONS: Mild CAD. Continue secondary prevention measures. Jorge Domingo MD, FACP, FACC, [facility] Interventional Cardiology Nancy DOMINGO MD Mar 01, 2020 12:39
[2020-03-01] MEDS ORDERED: PATIENT MAY USE OWN MEDS, ALL PO SCH (12:45)
--- NOTE | 2020-03-01 14:06 | Physician Query Clarification ---
"Physician Query-General Query to Physician: The medical record reflects the following clinical scenario: History/Risk factors: Chronic systolic HF, NSTEMI Clinical Findings: BNP of 1167, SOA, Weakness Treatment: IV Lasix, monitoring I and O Question: Do you agree with the impression of Mild Acute on Chronic Heart failure per Chayo? If you agree, please document in Progress Notes or Discharge Summary. 1. Yes; will document Mild Acute on Chronic systolic heart failure in the Progress Notes 2. No; will continue to document Chronic Systolic Heart failure in the Progress Notes 3. Other; will document explanation of clinical findings 4. Clinically undetermined; no explanation for clinical findings Please remember a lack of response to the above will prompt a phone page by CDI/coding staff. In responding to this query, please exercise your independent professional judgment. The purpose of this communication is to more accurately reflect the complexity of your patients condition. The fact that a question is asked does not imply that any particular answer is desired or expected. Thank you for timely response to this clarification. Jeanne Howell MSN, RN RN Specialist-Clinical Doc Improvement CD -Health Info Mgmt Operations [address] [facility] t: [phone] | f: [phone] If you are unable to reach me at my extension, I may be working from home. Please contact me at [phone] PHYSICIAN RESPONSE: Based on the clinical findings in the record, please respond to the query above on this document as an addendum. Physician Response: Physician Response 1 If you have questions please contact: Barrel Lathe Operator: Ext: Thank you for your time and cooperation. Clinical Head Loader/Barrel Lathe Operator This is a permanent part of the medical record JEANNE HOWELL Mar 01, 2020 14:06 TERESO HINDS MD Mar 01, 2020 15:39"
[2020-03-01] MEDS: NS IV 1000 ML 1,000 ML IV SCH ×2 (14:21→22:46)
--- NOTE | 2020-03-01 14:21 | NUR ---
PALLIATIVE CARE RN was asked by Cellar Supervisor and daughter to see patient and talk to her about Palliative Care and hospice. When this RN entered the room, found patient to be laying on her back..she is post Heart Cath at present. Introduced self and purpose for visit. Patient vacillated between mickie/lucy and flaquita. She reported knowing what PC is and hospice..and she never ever wants hospice. By the time I left the room she and a different understanding of the benefits. She still does not want a hospice consult at this time but is not resistant to having [facility] talk to her about their Palliative Care portion of their service line. I also told her that [facility] have a pre-hospice component to their services as well.
[2020-03-01] MEDS: morphine INJ 4 MG/ML 1 ML (VIAL/SYRINGE) IVP PRN ×3 (15:00→20:35)
--- NOTE | 2020-03-01 17:00 | NUR ---
Received from Cardiac Step Down. Report received from Mona RIVERA. Patient alert and oriented. Right groin cath site no signs of hematoma or bleeding. O2 at 2L per nasal cannula. Doshi patent with ezequiel urine. Bottom red and excoriated with Zinc applied. Groshong site bleeding, new dressing applied, flushed without difficulty and good blood return. Normal saline infusing at 100ml/hr.
[2020-03-01] MEDS: ALPRAZolam 0.5 MG (XANAX) TAB PO PRN (17:32)
[2020-03-01] MEDS: rOPINIRole 1 MG (REQUIP) TABLET PO SCH (20:34)
[2020-03-01] MEDS: ZOLPIDEM 5 MG (AMBIEN) TAB PO PRN (22:34)
[2020-03-02 00:07] VITALS: BP 93/64
[2020-03-02] MEDS: morphine INJ 4 MG/ML 1 ML (VIAL/SYRINGE) IVP PRN ×2 (03:24→09:01)
[2020-03-02] MEDS: LEVOTHYROXINE 25 MCG (LEVOTHROID) TAB PO SCH (04:41)
[2020-03-02] MEDS: LEVOTHYROXINE 150 MCG (LEVOTHROID) TAB PO SCH (04:41)
--- NOTE | 2020-03-02 04:50 | NUR ---
PT INCREASE SOB. LUNG SOUNDS ARE COARSE. DR. ZARATE CALLED AND INFORMED OF PT STATUS. ORDER FOR ONE TIME DOSE 40MG IV LASIX.
[2020-03-02 04:51] LABS: HEMOGLOBIN 11.7 G/DL (11.5-16.0); MEAN PLATELET VOLUME 10.8 FL (7.4-10.4); RED CELL DISTRIBUTION WIDTH 18.8 % (10.0-14.5); WHITE BLOOD COUNT 7.5 10^3/uL (4.3-11.0)
[2020-03-02 04:58] LABS: CHLORIDE 103 MMOL/L (98-107); POTASSIUM 3.8 MMOL/L (3.6-5.0); SODIUM 141 MMOL/L (135-145)
[2020-03-02 04:59] LABS: CALCIUM 8.3 MG/DL (8.5-10.1); GLUCOSE 89 MG/DL (70-105)
[2020-03-02] MEDS ORDERED: FUROSEMIDE 40 MG/4 ML INJ (LASIX) IVP ONE (05:00)
[2020-03-02 05:01] LABS: CARBON DIOXIDE 30 MMOL/L (21-32)
[2020-03-02 05:03] LABS: CREATININE SERUM 0.78 MG/DL (0.60-1.30); GFR ESTIMATED > 60
[2020-03-02 05:04] LABS: BUN/CREATININE RATIO 33
[2020-03-02] MEDS: inSUlin ASPART (NovoLOG) 1 UNIT/0.01 ML (CHARGE PER UNIT) SC SCH ×2 (05:16→11:41)
[2020-03-02 05:56] VITALS: BP 137/76
[2020-03-02 08:00] VITALS: BP 128/78
[2020-03-02] MEDS: ASPIRIN E.C. 81 MG (ECOTRIN) TAB PO SCH (08:46)
[2020-03-02] MEDS: PREGABALIN 75 MG (LYRICA) CAP PO SCH (08:46)
[2020-03-02] MEDS: CLOPIDOGREL 75 MG (PLAVIX) TABLET PO SCH (08:46)
[2020-03-02] MEDS: SOTALOL 80 MG (BETAPACE) TAB PO SCH (09:30)
--- NOTE | 2020-03-02 09:45 | Physical Therapy Daily Note ---
PT Daily Note-Current Subjective Pt presents supine in bed upon arrival to room, agreeable to work with therapy at this time. No complaints of pain Appearance Following session, pt reclined in bed with call light in hand and no other needs at this time. Mental Status Patient Orientation: Person, Place, Time, Situation Attachments: Oxygen, Doshi Catheter Transfers SCALE: Activities may be completed with or without assistive devices. 0-Etygkjfxao-omgjswq completes the activity by him/herself with no assistance from a helper. 5-Set-up or Clean-up Assistance-helper sets up or cleans up; patient completes activity. [place] assists only prior to or following the activity. 4-Supervision or Touching Assistance-helper provides verbal cues and/or touching/steadying and/or contact guard assistance as patient completes activity. Assistance may be provided throughout the activity or intermittently. 3-Partial/Moderate Assistance-helper does LESS THAN HALF the effort. [place] lifts, holds or supports trunk or limbs, but provides less than half the effort. 2-Substantial/Maximal Assistance-helper does MORE THAN HALF the effort. [place] lifts or holds trunk or limbs and provides more than half the effort. 6-Axxaeajtq-mkszmp does ALL the effort. Patient does none of the effort to complete the activity. Or, the assistance of 2 or more helpers is required for the patient to complete the activity. If activity was not attempted, code reason: 7-Patient Refused. 9-Not Applicable-not attempted and the patient did not perform the activity before the current illness, exacerbation or injury. 10-Not Attempted due to Environmental Limitations-(lack of equipment, weather restraints, etc.). 88-Not Attempted due to Medical Conditions or Safety Concerns. Roll Left & Right (QC): 2 Sit to Lying (QC): 3 Lying to Sitting/Side of Bed(Q: 2 Sit to Stand (QC): 2 Pt slow with bed mobility, requires cueing for sequencing and hand placement. Pt able to achieve sitting at EOB with max A to bring shoulders forward off of the bed. Pt requires max A to perform sit to stand at EOB x 3 for 10 sec. Pt unable to initiate steps to turn and has increased anxiety about OOB activity. Discussion about activities at home, and how she needs to increase activity in order to return home as she wishes. Weight Bearing Right Lower Extremity: Right Weight Bearing/Tolerated Left Lower Extremity: Left Weight Bearing/Tolerated Treatments functional mobility Assessment Current Status: Fair Progress Pt continues to have limitations in motivation, strength, balance and activity tolerance which impact her functional mobility, increasing her risk for falls. Pt is unsafe to return home at this time, will continue to progress as pt tolera julia. PT Short Term Goals Short Term Goals Time Frame: Mar 14, 2020 Lying to sitting on side of be: 3 Sit to stand: 3 Chair/tfq-tn-ftdzn transfer: 3 Walk 50 feet with two turns: 3 PT Credit Balance Specialist Goals Group Home Goals PT Group Home Goals Time Frame: Mar 21, 2020 Lying-Sitting on Side/Bed(QC): 4 Sit to Stand (QC): 4 Chair/Dwq-ig-Xwqvc Xfer(QC): 4 Does the Patient Walk: No and Walking Goal IS indicated Walk 50ft with 2 Turns (QC): 4 PT Plan Problem List Problem List: Activity Tolerance, Functional Strength, Safety, Balance, Gait, Transfer, Bed Mobility Treatment/Plan Treatment Plan: Continue Plan of Care Treatment Plan: Bed Mobility, Education, Functional Activity Jason, Functional Strength, Gait, Safety, Therapeutic Exercise, Transfers Treatment Duration: Mar 21, 2020 Frequency: 6 times per week Estimated Hrs Per Day: .25 hour per day Patient and/or Family Agrees t: Yes Safety Risks/Education Patient Education: Transfer Techniques, Safety Issues Teaching Recipient: Patient Teaching Methods: Discussion Response to Teaching: Reinforcement Needed Time/GCodes Time In: 905 Time Out: 925 Total Billed Treatment Time: 20 Total Billed Treatment 1 visit 1 FA x 20 min DUANE IQBAL PT Mar 02, 2020 09:45
--- NOTE | 2020-03-02 10:23 | Discharge Summary ---
Diagnosis/Chief Complaint Date of Admission Feb 28, 2020 at 18:04 Date of Discharge Admission Diagnosis Debility Primary Care No,Local Physician Discharge Diagnosis (1) NSTEMI (non-ST elevation myocardial infarction) Status: Acute (2) Debility Status: Acute (3) CAD (coronary artery disease) Status: Acute (4) CHF (congestive heart failure) Status: Chronic (5) Diabetes Status: Chronic (6) Hypothyroidism Status: Chronic (7) Hyperlipidemia Status: Chronic (8) Essential (primary) hypertension Status: Chronic Discharge Summary Discharge Physical Exam Allergies: Coded Allergies: No Known Drug Allergies (Unverified , 02/17/20) Vitals & I&Os Vital Signs Date Time Temp Pulse Resp B/P (MAP) Pulse Ox O2 Delivery O2 Flow Rate FiO2 03/02/20 08:00 36.4 68 20 128/78 (95) 99 Nasal Cannula 3.00 Hospital Course Labs (last 24 hrs) Laboratory Tests 03/01/20 10:48: Glucometer 105 03/01/20 15:44: Glucometer 96 03/01/20 20:22: Glucometer 184H 03/02/20 04:40: White Blood Count 7.5, Red Blood Count 3.78L, Hemoglobin 11.7, Hematocrit 37, Mean Corpuscular Volume 98, Mean Corpuscular Hemoglobin 31, Mean Corpuscular Hemoglobin Concent 32, Red Cell Distribution Width 18.8H, Platelet Count 212, Mean Platelet Volume 10.8H, Sodium Level 141, Potassium Level 3.8, Chloride Level 103, Carbon Dioxide Level 30, Anion Gap 8, Blood Urea Nitrogen 26H, Creatinine 0.78, Estimat Glomerular Filtration Rate > 60, BUN/Creatinine Ratio 33, Glucose Level 89, Calcium Level 8.3L 03/02/20 05:16: Glucometer 82 Microbiology 02/27/20 Influenza Types A,B Antigen (KATHERINE) - Final, Complete 02/27/20 Blood Culture - Preliminary, Resulted No growth Patient resulted labs reviewed. Pending Labs Laboratory Tests 03/02/20 04:40: White Blood Count 7.5, Red Blood Count 3.78, Hemoglobin 11.7, Hematocrit 37, Mean Corpuscular Volume 98, Mean Corpuscular Hemoglobin 31, Mean Corpuscular Hemoglobin Concent 32, Red Cell Distribution Width 18.8, Platelet Count 212, Mean Platelet Volume 10.8, Sodium Level 141, Potassium Level 3.8, Chloride Level 103, Carbon Dioxide Level 30, Anion Gap 8, Blood Urea Nitrogen 26, Creatinine 0.78, Estimat Glomerular Filtration Rate > 60, BUN/Creatinine Ratio 33, Glucose Level 89, Calcium Level 8.3 03/02/20 05:16: Glucometer 82 Imaging: Reviewed Imaging Report Discharge Home Medications: Active Scripts Active Reported Metoprolol Succinate 25 Mg Tab.er.24h 25 Mg PO DAILY Clopidogrel (Clopidogrel Bisulfate) 75 Mg Tablet 75 Mg PO DAILY Potassium Chloride 20 Meq Tab.er.prt 20 Meq PO DAILY Sotalol (Sotalol HCl) 80 Mg Tablet 80 Mg PO BID Furosemide 40 Mg Tablet 40 Mg PO DAILY PRN Furosemide 40 Mg Tablet 40 Mg PO DAILY Eliquis (Apixaban) 5 Mg Tablet 5 Mg PO BID Levemir Flextouch (Insulin Detemir) 100 Unit/1 Ml Insuln.pen 12 Unit SQ HS LAST FILLED 06-11-2019 #5 PENS/150 DAY SUPPLY Novolog Flexpen (Insulin Aspart) 300 Units/3 Ml Solution Units SC TIDAC USES PER SLIDING SCALE Pregabalin 75 Mg Capsule 75 Mg PO TID Ropinirole HCl 0.5 Mg Tablet 1 Mg PO HS TAKES 2 (0.5MG) TABS TO EQUAL 1MG Ondansetron HCl 4 Mg Tablet 4 Mg PO Q6H PRN Levothyroxine Sodium 175 Mcg Tablet 175 Mcg PO DAILY Ambien (Zolpidem Tartrate) 10 Mg Tablet 10 Mg PO HS PRN Meloxicam 15 Mg Tablet 15 Mg PO DAILY PRN Alprazolam 0.5 Mg Tablet 0.5 Mg PO DAILY PRN Formula ( Vit W-Ca,Fe,FA(<1 mg)) 1 Each Tablet 1 Each PO DAILY Instructions to patient/family Please see electronic discharge instructions given to patient. Clinical Quality Measures DVT/VTE Risk/Contraindication: Risk Factor Score Per Nursin RFS Level Per Nursing on Admit: 4+=Very High Problem Qualifiers (1) CAD (coronary artery disease): Coronary Disease-Associated Artery/Lesion type: [place] artery [place] vs. transplanted heart: [place] heart Associated angina: without angina Qualified Codes: I25.10 - Atherosclerotic heart disease of [place] coronary artery without angina pectoris (2) CHF (congestive heart failure): Heart failure type: systolic Heart failure chronicity: chronic Qualified Codes: I50.22 - Chronic systolic (congestive) heart failure (3) Diabetes: Diabetes mellitus type: type 2 Diabetes mellitus equipment operator intermodal yard insulin use: with mcc use Diabetes mellitus complication status: with neurologic complicat ions Diabetes mellitus complication detail: with polyneuropathy Qualified Codes: E11.42 - Type 2 diabetes mellitus with diabetic polyneuropathy; Z79.4 - [facility] (current) use of insulin TERESO HINDS MD Mar 02, 2020 10:23
[2020-03-02] MEDS ORDERED: ATOR40TA PO (10:26)
[2020-03-02] MEDS ORDERED: ASPI-983 PO (10:26)
--- NOTE | 2020-03-02 10:39 | Discharge Inst-Simple/Standard ---
Discharge Inst-Standard Discharge Medications New, Converted or Re-Newed RX: Transmitted to Pharmacy Patient Instructions/Follow Up Plan of Care/Instructions/FU: Please continue to take your medications as written. Please follow up with your primary care doctor in the next week and with your executive team leader within the next week as well. Activity as Tolerated: Yes Discharge Diet: Cardiac Diet Return to The Hospital For: Chest pain, shortness of breath, racing heart, confusion, weakness, if you feel you are getting worse. TERESO HINDS MD Mar 02, 2020 10:38
--- NOTE | 2020-03-02 10:43 | D/C HH Face to Face Order ---
D/C Face to Face Orders Instructions for Patient Via [facility], Patient Instructions/FollowUp: Please continue to take your medications as written. Please follow up with your primary care doctor and ramp manager in the next week to follow up this hospital stay. Physician to follow Patient: Dr Monroy Discharge Diet for Home: Cardiac Diet Patient Data-Allergies,Ht & Wt Patient Allergies: Coded Allergies: No Known Drug Allergies (Unverified , 02/17/20) Height (Feet): 5 Height (Inches): 6 Weight (Pounds): 185 Home Health Need/Face to Face Date of Face to Face: Mar 02, 2020 Clinical Findings: Generalized weakness and fatigue, Muscle weakness I have seen Pt [id number]: Yes Discharged To: Home Diagnosis/Conditions: CAD, atrial fibrillation Patient is Homebound due to: Muscle weakness Homebound Status Due to the above stated illness, injury or surgical procedure (medical condition or diagnosis) and associated clinical findings, the patient is homebound because of his/her inability to leave home except with aid of a supportive device and/or person AND leaving the home requires a considerable and taxing effort or is medically contraindicated. Pt req the following assistanc: Aid of another person, [facility] Nursing Orders Home Health Services Order: Nursing Services, Ware Tester-Evaluate & Treat, Physical Therapy-Evaluate & Treat Home Health Infusion Therapy Line Start Date: Feb 27, 2020 Therapy Orders Therapy Orders: OT (must have SN or PT order), Physical Therapy Therapy Specific Orders: Eval assistive deivces, Teach enviro modifications/safety, Gait training, Increase strength/endurance [facility] certify that this patient is under my care and that I, a nurse practitioner or a physician; a assignment desk assistant working with me, had a face to face encounter that - meets the physician face to face encounter requirements with this patient as dated. TERESO HINDS MD Mar 02, 2020 10:43
--- NOTE | 2020-03-02 11:20 | Occupational Ther Daily Note ---
OT Current Status-Daily Note Subjective Pt seen in bed. Pt alert/ oriented. Pt agrees to therapy with intent of sitting in recliner as pt denies ADLs. Pt does not c/o pain. Mental Status/Objective Patient Orientation: Normal For Age Attachments: Doshi Catheter, Oxygen (3L) ADL-Treatment Therapy Code Descriptions/Definitions Functional [place] Measure: 0=Not Assessed/NA 4=Minimal Assistance 1=Total Assistance 5=Supervision or Setup 2=Maximal Assistance 6=Modified [place] 3=Moderate Assistance 7=Complete IndependenceSCALE: Activities may be completed with or without assistive devices. 3-Zhxziimubr-kdzheir completes the activity by him/herself with no assistance from a helper. 5-Set-up or Clean-up Assistance-helper sets up or cleans up; patient completes activity. [place] assists only prior to or following the activity. 4-Supervision or Touching Assistance-helper provides verbal cues and/or touching/steadying and/or contact guard assistance as patient completes activity. Assistance may be provided throughout the activity or intermittently. 3-Partial/Moderate Assistance-helper does LESS THAN HALF the effort. [place] lifts, holds or supports trunk or limbs, but provides less than half the effort. 2-Substantial/Maximal Assistance-helper does MORE THAN HALF the effort. [place] lifts or holds trunk or limbs and provides more than half the effort. 1-Zycmhkion-ysmdij does ALL the effort. Patient does none of the effort to complete the activity. Or, the assistance of 2 or more helpers is required for the patient to complete the activity. If activity was not attempted, code reason: 7-Patient Refused. 9-Not Applicable-not attempted and the patient did not perform the activity b efore the current illness, exacerbation or injury. 10-Not Attempted due to Environmental Limitations-(lack of equipment, weather restraints, etc.). 88-Not Attempted due to Medical Conditions or Safety Concerns. Eating (QC): 6 Shower/Bathe Self (QC): 7 Toileting Hygiene (QC): 7 Other Treatment Pt able to complete supine to sit with mod A, requires min assist to reach EOB and encouragement. pt able to stand 2x with cues for hand placement and min A for stance with bed raised. Pt unable to maintain stance for more than 5 sec, requires tactile cues for UB upright position. Pt unable to maintain stance, requires sit both times. 2nd sit pt states bottom not EOB, pt encouraged to lay back while OT adjusts bed down to bring bottom back. Pt completes without assist. Pt stands with assist x2 for attempt to stand with chair placed EOB, pt unable to maintain stance for safe ambulation or transfer. Pt returns to EOB and brought to HOB with TDx2. Pt states receives PT multiple times a week and aide assist 6 hours a day. Based on decreased mobility/ strength, pt unsafe to return home with 1 person assist. Pt to benefit from increased therapy for strengthening/ endurance training as, based on current abilities, pt unable to complete safe transfers for toileting, showering, chair to w/c for fx mob without assist x2. All needs met, call light in reach, pt remains in bed end of session with encouragement to complete UE exercises (AROM). Education OT Patient Education: Correct positioning, Safety issues, Transfer techniques Teaching Recipient: Patient Teaching Methods: Demonstration, Discussion Response to Teaching: Verbalize Understanding, Unable to Return Demonstration, Reinforcement Needed OT Correction Goals Correction Goals Time Frame: Mar 11, 2020 Eating (QC): 5 Oral Hygiene (QC): 5 Toileting Hygiene (QC): 3 Shower/Bathe Self (QC): 3 Upper Body Dressing (QC): 3 Lower Body Dressing (QC): 3 On/Off Footwear (QC): 3 1=Demonstrate adherence to instructed precautions during ADL tasks. 2=Patient will verbalize/demonstrate understanding of assistive devices/modifications for ADL. 3=Patient will improve strength/tolerance for activity to enable patient to per form ADL's. OT Education/Plan Problem List/Assessment Assessment: Decreased Activ Tolerance, Decreased UE Strength, Dependent Transfers, Impaired Bed Mobility, Impaired Funct Balance, Impaired I ADL's, Impaired Self-Care Skills Discharge Recommendations Plan/Recommendations: Continue POC Therapy Discharge Recommendati: 24 Hour Supervision, Post Acute OT Treatment Plan/Plan of Care Treatment,Training & Education: Yes Patient would benefit from OT for education, treatment and training to promote independence in ADL's, mobility, safety and/or upper extremity function for ADL's. Plan of Care: ADL Retraining, Functional Mobility, UE Funct Exercise/Act Treatment Duration: Mar 11, 2020 Frequency: 5 times per week Estimated Hrs Per Day: .25 hour per day Agreement: Yes Rehab Potential: Fair Time/GCodes Start Time: 10:50 Stop Time: 11:06 Total Time Billed (hr/min): 16 Billed Treatment Time 1, FA (16) JORDAN ALCOCER OTR Mar 02, 2020 11:20
--- NOTE | 2020-03-02 11:30 | NUR ---
Doshi removed. IV to port removed. and patient dressed. awaiting EMS transport
[2020-03-02 12:05] VITALS: BP 128/78
--- NOTE | 2020-03-02 12:45 | Cardiology Progress Note ---
Cardiology SOAP Progress Note Subjective: No cardiac complaints. Objective: I&O/Vital Signs 03/02/20 03/02/20 03/02/20 03/02/20 01:00 04:00 05:56 08:00 Temp 35.8 36.4 Pulse 65 65 68 Resp 18 20 B/P (MAP) 137/76 (96) 128/78 (95) Pulse Ox 99 99 O2 Delivery Nasal Cannula Nasal Cannula Nasal Cannula O2 Flow Rate 3.00 3.00 3.00 03/02/20 03/02/20 09:00 10:58 O2 Delivery Nasal Cannula Nasal Cannula O2 Flow Rate 4.00 3.00 03/02/20 00:00 Intake Total 360 ml Output Total 375 ml Balance -15 ml Weight (Pounds): 185 Weight (Calculated Kilograms): 83.076873 Constitutional: appears stated age; No apparent distress; well-developed, well- nourished Respiratory: chest is bilaterally symmetric; No crackles, No rhonchi; other (decreased breath sounds bilaterally) Cardiovascular: irregularly irregular, S1 and S2; No diastolic murmur, No systolic murmur Gastrointestional: soft, audible bowel sounds; No spleenomegaly Extremities: normal range of motion, non-tender, normal inspection, pedal edema; No clubbing, No cyanosis, No significant edema Neurologic/Psychiatric: no motor/sensory deficits, alert, normal mood/affect, oriented x 3, power is 5/5 both on sides Skin: normal color, warm/dry; No rash, No ulcerations Results/Procedures: Labs Laboratory Tests 03/01/20 15:44: Glucometer 96 03/01/20 20:22: Glucometer 184H 03/02/20 04:40: White Blood Count 7.5, Red Blood Count 3.78L, Hemoglobin 11.7, Hematocrit 37, Mean Corpuscular Volume 98, Mean Corpuscular Hemoglobin 31, Mean Corpuscular Hemoglobin Concent 32, Red Cell Distribution Width 18.8H, Platelet Count 212, Mean Platelet Volume 10.8H, Sodium Level 141, Potassium Level 3.8, Chloride Level 103, Carbon Dioxide Level 30, Anion Gap 8, Blood Urea Nitrogen 26H, Creatinine 0.78, Estimat Glomerular Filtration Rate > 60, BUN/Creatinine Ratio 33, Glucose Level 89, Calcium Level 8.3L 03/02/20 05:16: Glucometer 82 03/02/20 11:25: Glucometer 180H Microbiology 02/27/20 Influenza Types A,B Antigen (KATHERINE) - Final, Complete 02/27/20 Blood Culture - Preliminary, Resulted No growth A/P: Assessment/Dx: Non-STEMI, Likely ischemic cardiomyopathy, Mild acute on chronic congestive heart failure, COPD, Diabetes, Acute on chronic kidney disease, Persistent Atrial fibrillation. Plan: Non-STEMI, continue aspirin, Plavix. I spoke at length with the patient and due to significantly elevated troponin, I recommended coronary angiography. I explained the procedure at length as well as the risk of complication of 1 percent. She understands the risk but is very hesitant to undergo coronary angiography. We will give her reading material. I did explain to her that coronary angiography and possible intervention is her choice, she needs to understand the risk of recurrent NM and even if she refuses. The patient and her family are now willing to perform coronary angiography and understand the risk with coronary angiography and PCI. Coronary angiography done on 03/01/2020 showed no significant CAD. Likely ischemic cardiomyopathy, will need to gradually start cardiomyopathy medication. Echocardiogram showed borderline LV function with an EF of 50-55 percent. Moderate mitral regurgitation, moderate to severe tricuspid regurgitation. No significant valvular heart disease. Mild acute on chronic congestive heart failure, elevated BNP. IV Lasix. COPD, defer to the primary team. Diabetes, deferred to the primary team. Acute on chronic kidney disease, will watch clinically. Previous history of dialysis as well. Persistent atrial fibrillation. Continue sotalol. Oral anticoagulation is recommended. Patient can be discharged and will follow-up with primary credit compliance officer as an outpatient. Thank you for your consultation. Please call me if you have any questions. Jorge Domingo MD, FACP, FACC, FSCAI, FHRS, CCDS Interventional Cardiology Cardiac Electrophysiology Vascular Medicine and Endovascular Interventions Nancy DOMINGO MD Mar 02, 2020 12:45
--- NOTE | 2020-03-02 14:28 | NUR ---
CM/SS finalized discharge. Plan: The patient will return home with resumption of Home Health and new oxygen script. Home Health: The patient will resume home health care with [facility]. CM/SS contacted [facility] and spoke with Marisa to inform them of patients discharge. CM/SS faxed discharge orders to agency and notified them of new oxygen need. DME: The patient uses [facility] in [place], [place]. CM/SS contacted them to inform them that patients called the primary care nurse after patient discharged to say they didn't have oxygen at home. CM/SS had previously asked patients Will if there were any needs or new set ups for home prior to discharge. He stated no. CM/SS also asked the daughter. She also stated no. However, patients called and stated he has been trying to set it up but has been unsuccessful. CM/SS sent script, order for pulse ox test, h&p, and ER report to get the patient oxygen today. [facility] reports they received the fax and are good to deliver today. CM/SS contacted Pat and Will to discuss further needs at home. The patients Will states that he did not have any needs. CM/SS asked about having sleep support in the home due to patients multiple falls. He reports he would take resources on caregivers. CM/SS put caregiver resources in red discharge packet. No further needs at this time.
== END 2020-03-02 12:05 | disposition home or self-care (01) | DRG 280 ==
LOC: EDUNIT# 20:04 → ER 20:07 → ICU 21:45 → OBSVTOIN 02-28 18:04 → CSD 02-29 14:23 → 4TH 03-01 17:00
PROVIDERS: ADMIT Internal Medicine; ATTEND Internal Medicine
PROC: 4A023N7 Measurement of Cardiac Sampling and Pressure, Left Heart, Percutaneous Approach (ICD-10-PCS; principal; 2020-03-01)
PROC: B2111ZZ Fluoroscopy of Multiple Coronary Arteries using Low Osmolar Contrast (ICD-10-PCS; 2020-03-01)
PROC: B2151ZZ Fluoroscopy of Left Heart using Low Osmolar Contrast (ICD-10-PCS; 2020-03-01)
DX: I21.4 Non-ST elevation (NSTEMI) myocardial infarction (principal); I50.23 Acute on chronic systolic (congestive) heart failure; I13.0 Hypertensive heart and chronic kidney disease with heart failure and stage 1 through stage 4 chronic kidney disease, or unspecified chronic kidney disease; I48.19 Other persistent atrial fibrillation; N17.9 Acute kidney failure, unspecified; I25.10 Atherosclerotic heart disease of native coronary artery without angina pectoris; E78.5 Hyperlipidemia, unspecified; E03.9 Hypothyroidism, unspecified; E66.9 Obesity, unspecified; N18.9 Chronic kidney disease, unspecified; E11.22 Type 2 diabetes mellitus with diabetic chronic kidney disease; J44.9 Chronic obstructive pulmonary disease, unspecified
CPT/HCPCS: 36221; 36415; 71045; 80048; 80053; 81000; 82962; 83605; 83615; 83880; 84145; 84443; 84484; 85025; 85027; 85652; 86141; 87040; 87635; 87804; 93005; 93306; 93458; 94640; G0378